=== PATIENT | male | born 1975 | race Caucasian/White ===

== ENCOUNTER 2016-11-22 14:30 | Inpatient (IN) | payer MEDICAID ==
[~2016-11-22] VITALS: Ht 185.4 cm; Wt 93.7 kg
[2016-11-22 14:45] VITALS: BP 100/67
[2016-11-22] MEDS ORDERED: NS IV SCH (15:00)
[2016-11-22] MEDS ORDERED: AMPICILLIN IV SCH (15:00)
[2016-11-22] MEDS ORDERED: AMPICILLIN 2 GM/NS 50 ML IVPB IV SCH ×4 (15:00)
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
[2016-11-22] MEDS ORDERED: hydrOXYzine (VISTARIL) 25 MG CAP PO PRN (16:15)
[2016-11-22] MEDS ORDERED: FLEET ENEMA ADULT 1 EA BTL PR PRN (16:15)
[2016-11-22] MEDS ORDERED: BACLOFEN 10 MG (LIORESAL) TAB PO PRN (16:15)
[2016-11-22] MEDS ORDERED: RT-ALBUTEROL/IPRATROPIUM 3 ML (DUONEB) VIAL INH PRN (16:15)
[2016-11-22] MEDS ORDERED: POLYETHYLENE GLYCOL 17 GM (MIRALAX) PACK PO PRN (16:15)
[2016-11-22] MEDS ORDERED: LIDOCAINE TOPICAL 4% 50 ML BTL TP PRN (16:15)
[2016-11-22] MEDS ORDERED: ONDANSETRON 8 MG (ZOFRAN) ORAL DISSOLVE TAB PO PRN (16:15)
[2016-11-22 18:31] VITALS: BP 119/69
[2016-11-22] MEDS ORDERED: INFLUENZA TRIvalent 2017-2018 0.5 ML/45 MCG SYR IM ONE (19:15)
[2016-11-22] MEDS: NS IV SCH (20:56)
[2016-11-22] MEDS: LEVETIRACETAM 500 MG (KEPPRA) TAB PO SCH (20:56)
[2016-11-22] MEDS: DOCUSATE SODIUM 100 MG (COLACE) CAP PO SCH (20:56)
[2016-11-22] MEDS: AMPICILLIN IV SCH (20:56)
[2016-11-22] MEDS: GABAPENTIN 300 MG (NEURONTIN) CAP PO SCH (20:56)
[2016-11-22] MEDS: BACLOFEN 10 MG (LIORESAL) TAB PO SCH (20:56)
[2016-11-22] MEDS: CATHETER FLUSH 10 ML SYR IV PRN (22:01)
[2016-11-23] VITALS (8 sets, daily range): BP systolic 91–118; BP diastolic 52–72
[2016-11-23] MEDS: CATHETER FLUSH 10 ML SYR IV PRN ×2 (02:20→22:59)
[2016-11-23] MEDS: NS IV SCH ×4 (02:20→21:50)
[2016-11-23] MEDS: AMPICILLIN IV SCH ×4 (02:20→21:50)
[2016-11-23] MEDS: MULTIVIT W/MINERALS TAB (THERAGRAN M) PO SCH (05:53)
[2016-11-23] MEDS: PANTOPRAZOLE 40 MG (PROTONIX) TAB PO SCH (05:53)
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
[2016-11-23] MEDS ORDERED: TAMSULOSIN 0.4 MG (FLOMAX) CAP PO SCH (09:00)
[2016-11-23] MEDS: RIVAROXABAN 20 MG TABLET (XARELTO) PO SCH (09:16)
[2016-11-23] MEDS: BACLOFEN 10 MG (LIORESAL) TAB PO SCH ×3 (09:16→20:33)
[2016-11-23] MEDS: GABAPENTIN 300 MG (NEURONTIN) CAP PO SCH ×3 (09:17→20:33)
[2016-11-23] MEDS: LACTOBACILLUS Acidoph/Bulgar (LACTINEX/FLORANEX) TAB PO SCH (09:17)
[2016-11-23] MEDS: DOCUSATE SODIUM 100 MG (COLACE) CAP PO SCH ×2 (09:17→20:32)
[2016-11-23] MEDS: LEVETIRACETAM 500 MG (KEPPRA) TAB PO SCH ×2 (09:17→20:33)
[2016-11-23] MEDS: LORATADINE (CLARITIN) 10 MG TAB PO PRN (09:17)
[2016-11-23] MEDS: ALFUZOSIN HCL 10 MG TAB (UROXATRAL) PO SCH (09:17)
[2016-11-23] MEDS: OXYBUTYNIN 10 MG PO SCH ×3 (09:20→20:33)
[2016-11-23] MEDS: POLYETHYLENE GLYCOL 17 GM (MIRALAX) PACK PO SCH (09:22)
[2016-11-23] MEDS: HYDROcodone/APAP 5 MG/325 MG (LORTAB) TAB PO PRN ×2 (10:37→15:55)
--- NOTE | 2016-11-23 11:39 | Physical Therapy Daily Note ---
PT Daily Note-Current Subjective Patient in bed pre tx, agrees to PT, will be co-treating with OT for bathing, bed mobility, and transfers. Patient indicates that he has pain in his legs and arms, unspecified amount. Patient has had a large BM in his bed and will need to be cleaned. Appearance Patient in wheelchair post tx with OT and family ready to come in. Mental Status Patient Orientation: Person, Situation Transfers Functional [place] Measure 0=Not Assessed/NA 4=Minimal Assistance 1=Total Assistance 5=Supervision or Setup 2=Maximal Assistance 6=Modified [place] 3=Moderate Assistance 7=Complete IndependenceIRFPAI Quality Coding Scale 6 Independent with activity with or without an assistive device 5 Patient requires set up or clean up by helper. Patient completes activity by themselves 4 Supervision or touching assist (CGA). [place] provide cues , steadying assist 3 The helper provides less than half the effort to complete the activity 2 The helper provides more than half the effort to complete the activity 1 Dependent. The helper does all the effort to complete an activity 7 Patient refused to complete or attempt activity 9 The patient did not perform the activity before the current illness or injury 88 Not attempted due to Medical conditions or safety concerns Transfers (B, C, W/C) (FIM): 1 Scootin Rollin Supine to/from Sit: 1 Bed to/from Chair: 1 Patient had to roll many times from side to side for cleaning BM, getting clean sheets, getting sling under him, bathing, and dressing. He is dependent with this for the most part, he can assist a little with rolling to the left side but not even enough to be considered max assist. Patient is transferred to the shower chair, bed, and wheelchair using a zoey. Treatments Patient was cleaned for BM at the beginning of treatment, transferred with zoey to a shower chair and put in shower. In the shower, before it was actually started, patient became anxious and extended his back and head, causing his bottom to side off the chair and he was immediately taken back to his bed and put in bed before he had a chance to slip out of the chair. He was then bathed in bed, partially dressed and transferred to the wheelchair and dressed the rest of the way. Patient had to roll many times to accomplish all this, cues for helping with rolling using right arm. Assessment Current Status: Poor Progress Patient is very anxious, repeats over and over that it hurts. Does not really participate. Besides the ankle and knee contractures, he seems to maybe even have contractures of the muscles in his left trunk and back, rotating his hips to the left, cannot sit with knees strait up without being positioned there with a lot of effort. PT Short Term Goals Short Term Goals Time Frame: Nov 30, 2016 Transfers (B,C,W/C) (FIM): 2 PT Mcc Goals Mcc Goals PT Mcc Goals Time Frame: Dec 14, 2016 Transfers (B,C,W/C) (FIM): 2 Sit to Lying (QC): 2 Lying-Sitting on Side/Bed(QC): 2 Rollin Roll Left to Right (QC): 2 Chair/Dal-xx-Ocisi Xfer(QC): 2 PT Plan Problem List Problem List: Activity Tolerance, Functional Strength, Safety, Balance, Transfer, Bed Mobility, ROM Treatment/Plan Treatment Plan: Continue Plan of Care Treatment Plan: Bed Mobility, Concurrent Therapy, Education, Functional Activity Juanpablo, Functional Strength, Group Therapy, Safety, Therapeutic Exercise , Transfers Treatment Duration: Dec 14, 2016 Frequency: At least 5 of 7 days/Wk (IRF) Estimated Hrs Per Day: 1.5 hours per day Patient and/or Family Agrees t: Yes Safety Risks/Education Patient Education: Transfer Techniques, Correct Positioning, W/C Management, Instructions to Caregiver, Disease Process, Safety Issues Teaching Recipient: Patient Teaching Methods: Demonstration, Discussion Response to Teaching: Reinforcement Needed Time/GCodes Time In: 1030 Time Out: 1100 Total Billed Treatment Time: 60 Total Billed Treatment 1 visit FA 60' Co-treated for the whole 60 min. OT worked on bathing, dressing, transfers, PT worked on transfers and bed mobility. FREDDY TRIMBLE PT Nov 23, 2016 11:39
[2016-11-23] MEDS ORDERED: BISA10SU58 RC ×2 (13:01→13:24)
[2016-11-23] MEDS ORDERED: AMPI2VIA IV (13:01)
[2016-11-23] MEDS ORDERED: NA P133E22 RC (13:01)
[2016-11-23] MEDS ORDERED: [UNRECOGNIZED DRUG - CODE] ID (13:01)
[2016-11-23] MEDS ORDERED: ACET325T38 PO (13:24)
[2016-11-23] MEDS ORDERED: PANT40TA3 PO (13:24)
[2016-11-23] MEDS ORDERED: LEVE500T99 PO (13:24)
[2016-11-23] MEDS ORDERED: GABA-488 PO (13:24)
[2016-11-23] MEDS ORDERED: ONDA8TAB6 PO (13:24)
[2016-11-23] MEDS ORDERED: MO133EN RC (13:24)
[2016-11-23] MEDS ORDERED: TAMS0.4C98 PO (13:24)
[2016-11-23] MEDS ORDERED: DOCU-143 PO (13:24)
[2016-11-23] MEDS ORDERED: RIVA20TA PO (13:24)
[2016-11-23] MEDS ORDERED: ALB0.5V NEB (13:24)
[2016-11-23] MEDS ORDERED: NALO0.4D3 SC (13:24)
[2016-11-23] MEDS ORDERED: OXYB10TA6 PO (13:24)
[2016-11-23] MEDS ORDERED: LACT1CAP57 PO (13:24)
[2016-11-23] MEDS ORDERED: CITA40TA11 PO (13:24)
[2016-11-23] MEDS ORDERED: HYDR-757 PO (13:24)
[2016-11-23] MEDS ORDERED: BACL10TA PO ×2 (13:24)
[2016-11-23] MEDS ORDERED: CETI10TA20 PO (13:24)
[2016-11-23] MEDS ORDERED: DIPH25CA79 PO (13:24)
[2016-11-23] MEDS ORDERED: METO-270 PO (13:24)
[2016-11-23] MEDS ORDERED: HYDR50TA76 PO (13:24)
[2016-11-23] MEDS ORDERED: POLY17PO6 PEG (13:24)
[2016-11-23] MEDS ORDERED: KETO120S5 TP (13:24)
[2016-11-23] MEDS ORDERED: KETO10TA PO (13:24)
[2016-11-23] MEDS ORDERED: MULT-1067 PO (13:24)
[2016-11-23] MEDS ORDERED: MAGN400O7 PO (13:24)
[2016-11-23] MEDS ORDERED: LIDO113G4 TP (13:24)
[2016-11-23] MEDS: ONDANSETRON 4 MG (ZOFRAN) ORAL DISSOLVE TAB PO PRN (13:34)
--- NOTE | 2016-11-23 13:44 | Physical Therapy Daily Note ---
PT Daily Note-Current Subjective Pt is sitting in wheelchair prior to tx. Pt reports his head hurts. Pt is to be co-treated with occupational therapy. Pt is lying in bed with nurse call, phone in reach, all needs met post tx, family in room. Mental Status Patient Orientation: Person Attachments: Suprapubic Catheter Transfers Functional [place] Measure 0=Not Assessed/NA 4=Minimal Assistance 1=Total Assistance 5=Supervision or Setup 2=Maximal Assistance 6=Modified [place] 3=Moderate Assistance 7=Complete IndependenceIRFPAI Quality Coding Scale 6 Independent with activity with or without an assistive device 5 Patient requires set up or clean up by helper. Patient completes activity by themselves 4 Supervision or touching assist (CGA). [place] provide cues , steadying assist 3 The helper provides less than half the effort to complete the activity 2 The helper provides more than half the effort to complete the activity 1 Dependent. The helper does all the effort to complete an activity 7 Patient refused to complete or attempt activity 9 The patient did not perform the activity before the current illness or injury 88 Not attempted due to Medical conditions or safety concerns Transfers (B, C, W/C) (FIM): 1 Scootin Rollin Bed to/from Chair: 1 Pt is transferred with Reva lift from wheelchair into bed. Patient completes rolling with verbal cues for hand placement, is able to grab railing on side of bed but is not able to help enough to be max assist yet. Weight Bearing Right Lower Extremity: Right Non Weight Bearing Treatments OT and PT attempts to sit patient at edge of mat. Pt was transferred with Reva lift into bed. PT and OT complete positioning in bed with pillows under knees and left arm. Assessment Current Status: Poor Progress Pt becomes sweaty during tx and begins increasingly repeating himself. Pt vitals were assessed (O2 90%, HR 55, BP 78/55). Pt is transferred to bed. Patient becomes nauseous and dry heaves for several minutes. Pt blood pressure is reassessed and is 98/72. PT Short Term Goals Short Term Goals Time Frame: Nov 30, 2016 Transfers (B,C,W/C) (FIM): 2 PT Custodial Goals Custodial Goals PT Apprentice Carpenter Goals Time Frame: Dec 14, 2016 Transfers (B,C,W/C) (FIM): 2 Sit to Lying (QC): 2 Lying-Sitting on Side/Bed(QC): 2 Rollin Roll Left to Right (QC): 2 Chair/Cze-ne-Libll Xfer(QC): 2 PT Plan Problem List Problem List: Activity Tolerance, Functional Strength, Safety, Balance, Gait, Transfer, Bed Mobility, ROM Treatment/Plan Treatment Plan: Continue Plan of Care Treatment Plan: Bed Mobility, Concurrent Therapy, Education, Functional Activity Juanpablo, Functional Strength, Group Therapy, Safety, Therapeutic Exercise , Transfers Treatment Duration: Dec 14, 2016 Frequency: At least 5 of 7 days/Wk (IRF) Estimated Hrs Per Day: 1.5 hours per day Patient and/or Family Agrees t: Yes Safety Risks/Education Patient Education: Transfer Techniques, Reviewed Precautions, Correct Positioning, W/C Management, Safety Issues Teaching Recipient: Patient Teaching Methods: Demonstration, Discussion Response to Teaching: Reinforcement Needed Time/GCodes Time In: 1300 Time Out: 1340 Total Billed Treatment Time: 40 Total Billed Treatment 1 visit 40 FREDDY FONSECA PT Nov 23, 2016 13:44
--- NOTE | 2016-11-23 14:17 | Speech Therapy Daily Note ---
Speech Daily Progress Note Subjective Date Seen by Provider: Nov 23, 2016 Time Seen by Provider: 09:30 Objective Prior Level of Functioning: The patient completed a bachelor's degree in criminal justice prior to the accident. The patient does not utilize glasses or contact lenses and does not require hearing aids. At this time, the patient is unable to write, however, reports he was previously right handed. Orientation: The patient is oriented to name, date of , age, year, and month. The patient requires mild clinician verbal cueing for the accurate day of week. The patient is able to state the rationale for his rehabilitation stay. Auditory Attention/Working Memory: The patient is able to recall five digits forward and three digits in reverse. Automatics: The patient is able to state the days of the week and count backwards from 10 to zero. Repetition: The patient is able to repeat single words and short phrases. Auditory Memory: The patient was able to recall questions pertaining to a recently read paragraph with 100% accuracy. Sequencing: The patient displayed moderate difficulty sequencing ADL tasks such as preparing soup, placing gas in a car or motorcycle, or washing his hair. Divergent Problem Solving: The patient was unable to provide three items that would belong in a specific category. Generative Naming: The patient was able to name seven animals in a span of one minute with six perseverated answered provided ([id number]). General Reasoning: The patient was able to state specific reasons for windows being made of glass and two reasons why someone may be late to work. Figurative Language: The patient was unable to explain the meaning behind common figurative phrases. Math Story Problems/Time Concepts: The patient displayed difficulty with time concepts and math story problems, demonstrating less than 50% accuracy. Command Following: The patient is able to follow two-part, complex commands. Assessment Assessment Current Status: Good Progress Treatment Plan Continue Plan of Care Communication Comprehension: 3 Expression: 2 Social Cognition Social Interaction: 3 Problem Solvin Memory: 3 Speech Short Term Goals Short Term Goals Short Term Goals 1. The patient will complete a full cognitive evaluation with mild clinician verbal prompting. MET (11/23/16) 2. The patient will display 80% accuracy with structured word-finding tasks with mild clinician verbal prompting. 3. The patient will demonstrate 80% accuracy with sequencing of ADL tasks with minimal clinician verbal prompting. 4. The patient will complete structured deductive reasoning tasks with 80% accuracy and mild clinician cueing. 5. The patient will display 80% accuracy with oral motor exercises with mild clinician direct modeling. Time Frame-STG: Three Weeks Speech Group Home Goals Data Miner Goals 1. The patient will improve cognitive linguistic skills for increased function and safety with ADL's in the least restrictive setting. Time Frame: Four Weeks Speech-Plan Treatment Plan Speech Therapy Treatment Plan: Continue Plan of Care Continue skilled speech pathology to target improved executive functioning and reasoning skills. Frequency: Modified Program (IRF) (Four to Five Treatment Sessions Per Week) Estimated Hrs Per Day: .5 hour per day Rehab Potential: Poor Safety Risks/Education Teaching Recipient: Patient Teaching Methods: Discussion Response to Teaching: Reinforcement Needed Education Topics Provided: Results, Recommendations, Plan of Care, Goals Time Speech Therapy Time In: 09:30 Speech Therapy Time Out: 10:30 Total Billed Time: 60 Billed Treatment Time 1ELMO ELIZABETH ST Nov 23, 2016 14:17
--- NOTE | 2016-11-23 14:54 | Occupational Ther Daily Note ---
OT Current Status-Daily Note Subjective Pt. greets OT with "hi" Appearance Pt. in bed. Agrees to shower. Mental Status/Objective Functional [place] Measure 0=Not Assessed/NA 4=Minimal Assistance 1=Total Assistance 5=Supervision or Setup 2=Maximal Assistance 6=Modified [place] 3=Moderate Assistance 7=Complete [place] Please see comments below. ADL-Treatment Functional [place] Measure 0=Not Assessed/NA 4=Minimal Assistance 1=Total Assistance 5=Supervision or Setup 2=Maximal Assistance 6=Modified [place] 3=Moderate Assistance 7=Complete IndependenceIRFPAI Quality Coding Scale 6 Independent with activity with or without an assistive device 5 Patient requires set up or clean up by helper. Patient completes activity by themselves 4 Supervision or touching assist (CGA). [place] provide cues , steadying assist 3 The helper provides less than half the effort to complete the activity 2 The helper provides more than half the effort to complete the activity 1 Dependent. The helper does all the effort to complete an activity 7 Patient refused to complete or attempt activity 9 The patient did not perform the activity before the current illness or injury 88 Not attempted due to Medical conditions or safety concerns Bathing (FIM): 2 (Please see comments below.) Shower/Bathe Self (QC): 2 Upper Body (FIM): 1 Upper Body Dressing (QC): 1 Lower Body Dressing (FIM): 1 (Supine in bed.) Lower Body Dressing (QC): 1 On/Off Footwear (QC): 1 (Socks only due to sever contracture and wound on right foot.) Toileting (FIM): 1 (Pt. has catheter for urine. Incontinent of bowel.) Toileting Hygiene (QC): 1 Transfers (B, C, W/C) (FIM): 1 (Reva lift) Shower Transfer(FIM): 1 (See note below.) Other Treatment Pt. incontinent of bowel this morning. OT/PT co-treat due to level of skilled care required for transfer training. OT facilitate ADL treatment and UE ROM. PT facilitated transfers and LE ROM. Pt. dependent in bed to roll side to side. Was able to reach with right UE for bed rail, but unable to reach with left UE. Pt. dependent to cleanse carli area. After carli cleanse, pt. was transferred to shower chair for shower. Pt. safe on chair and positioned well. Went into shower and pt. began to go into extensor tone. Became unsafe on chair and OT/PT had to take pt. back to bed and transfer back to bed with slide technique. Pt. given thorough spongebath in bed. OT facilitated pt. washing as much of himself as possible. Pt. given washcloth and asked to wash face, chest. Pt. washed part of face and then left cloth on face and said, "i'm tired." Refused to attempt more. OT and PT encouraged pt. throughout ADL training/tasks to do as much for self, including to be a participant in transfers. Donned shorts, shirt, depend. Transferred to wheelchair via reva lift. Pt. is positioned. Note that pt. does have significant contractures in bilateral knees, elbows, wrists, fingers. All needs met up in chair. Education OT Patient Education: Correct positioning, Modified ADL techniques, Progress toward Goal/Update tx plan, Purpose of tx/functional activities, Reviewed precautions, Rehab process, Transfer techniques Teaching Recipient: Patient, Family Teaching Methods: Demonstration, Discussion Response to Teaching: Verbalize Understanding, Return Demonstration OT Short Term Goals Short Term Goals Time Frame: Dec 06, 2016 Eating(FIM): 3 Grooming(FIM): 3 Bathing(FIM): 2 Upper Body Dressing(FIM): 2 Lower Body Dressing(FIM): 2 Toileting(FIM): 2 Transfers (B,C,W/C) (FIM): 2 Toilet/Commode Transfer(FIM): 2 Additional Short Term Goals: 1-Demonstrate ADL Tasks, 2-Verbalize Understanding , 3-ImproveStrength/Juanpablo 1=Demonstrate adherence to instructed precautions during ADL tasks. 2=Patient will verbalize/demonstrate understanding of assistive devices/ modifications for ADL. 3=Patient will improve strength/tolerance for activity to enable patient to perform ADL's. OT Transition Teacher Goals Transition Teacher Goals Time Frame: Dec 27, 2016 Eating (FIM): 4 Eating (QC): 4 Groomin Oral Hygiene (QC): 4 Bathing(FIM): 3 Shower/Bathe Self (QC): 3 Upper Body Dressing(FIM): 3 Upper Body Dressing (QC): 3 Lower Body Dressing(FIM): 3 Lower Body Dressing (QC): 3 On/Off Footwear (QC): 2 Toileting(FIM): 2 Toileting Hygiene (QC): 2 Transfers (B,C,W/C) (FIM): 2 Toilet/Commode Transfer(FIM): 2 Toilet/Commode Transfer (QC): 2 Shower Transfer(FIM): 2 Additional Goals: 1-Demonstrate ADL Tasks, 2-Verbalize Understanding, 3- ImproveStrength/Juanpablo 1=Demonstrate adherence to instructed precautions during ADL tasks. 2=Patient will verbalize/demonstrate understanding of assistive devices/ modifications for ADL. 3=Patient will improve strength/tolerance for activity to enable patient to perform ADL's. OT Education/Plan Problem List/Assessment Assessment: Decreased Activ Tolerance, Decreased Safety Aware, Decreased UE Strength, Dependent Transfers, Impaired Bed Mobility, Impaired Cognition, Impaired Coordination, Impaired Funct Balance, Impaired I ADL's, Impaired Self- Care Skills, Restricted Funct UE ROM Discharge Recommendations Plan/Recommendations: Continue POC Therapy D/C Recommendations: 24 hr Supervision, Home w/ Family Support Treatment Plan/Plan of Care Treatment,Training & Education: Yes Patient would benefit from OT for education, treatment and training to promote independence in ADL's, mobility, safety and/or upper extremity function for ADL' s. Plan of Care: ADL Retraining, Caregiver Training, Cognitive Retraining, Functional Mobility, Group Exercise/Act as Ind, UE Funct Exercise/Act Treatment Duration: Dec 27, 2016 Frequency: At least 5 of 7 days/Wk (IRF) Estimated Hrs Per Day: 1.5 hours per day Agreement: Yes Rehab Potential: Poor Time/GCodes Start Time: 10:30 Stop Time: 11:30 Total Time Billed (hr/min): 60 Billed Treatment Time 1, ADL x 4 JACOB PIERRE OT Nov 23, 2016 14:54
[2016-11-23] MEDS ORDERED: NS IV 1000 ML 1,000 ML ONE (16:39)
[2016-11-23] MEDS ORDERED: NS IV 1000 ML 1,000 ML IV ONE (16:45)
--- NOTE | 2016-11-23 16:47 | Occupational Ther Daily Note ---
OT Current Status-Daily Note Subjective [place] through treatment pt begins to state "my head hurts" over and over." Nursing notified and BP taken. Please see note. Appearance Pt. up in wheelchair. Agrees to treatment at beginning of treatment. Mental Status/Objective Patient Orientation: Confused Functional [place] Measure 0=Not Assessed/NA 4=Minimal Assistance 1=Total Assistance 5=Supervision or Setup 2=Maximal Assistance 6=Modified [place] 3=Moderate Assistance 7=Complete [place] ADL-Treatment Functional [place] Measure 0=Not Assessed/NA 4=Minimal Assistance 1=Total Assistance 5=Supervision or Setup 2=Maximal Assistance 6=Modified [place] 3=Moderate Assistance 7=Complete IndependenceIRFPAI Quality Coding Scale 6 Independent with activity with or without an assistive device 5 Patient requires set up or clean up by helper. Patient completes activity by themselves 4 Supervision or touching assist (CGA). [place] provide cues , steadying assist 3 The helper provides less than half the effort to complete the activity 2 The helper provides more than half the effort to complete the activity 1 Dependent. The helper does all the effort to complete an activity 7 Patient refused to complete or attempt activity 9 The patient did not perform the activity before the current illness or injury 88 Not attempted due to Medical conditions or safety concerns Transfers (B, C, W/C) (FIM): 1 (Dependent with reva lift.) Other Treatment Pt. taken to therapy gym in wheelchair. Pt. agreeable to attempt slide board transfer to mat. OT/PT co-treat to facilitate this transfer, as skill was required from both parties, including PT for leg placement and transfer, and OT for UE placement and balance/core strength when on mat. Placed slide board under pt. Pt. became sweaty, and started to repeat self. Stated that his head hurt. Became pale. OT reclined chair again. Nursing took BP. 78/55. Took to room. Reva to bed. BP taken again and 92/62. Pt. positioned in bed and made comfortable. Pt. states that he feels ill. Began to dry heave. Nursing provided nausea medication. All needs met in room. Education OT Patient Education: Correct positioning, Modified ADL techniques, Progress toward Goal/Update tx plan, Purpose of tx/functional activities, Reviewed precautions, Rehab process, Transfer techniques Teaching Recipient: Patient Teaching Methods: Demonstration Response to Teaching: Verbalize Understanding, Return Demonstration OT Short Term Goals Short Term Goals Time Frame: Dec 06, 2016 Eating(FIM): 3 Grooming(FIM): 3 Bathing(FIM): 2 Upper Body Dressing(FIM): 2 Lower Body Dressing(FIM): 2 Toileting(FIM): 2 Transfers (B,C,W/C) (FIM): 2 Toilet/Commode Transfer(FIM): 2 Additional Short Term Goals: 1-Demonstrate ADL Tasks, 2-Verbalize Understanding , 3-ImproveStrength/Juanpablo 1=Demonstrate adherence to instructed precautions during ADL tasks. 2=Patient will verbalize/demonstrate understanding of assistive devices/ modifications for ADL. 3=Patient will improve strength/tolerance for activity to enable patient to perform ADL's. OT Fpc Goals Metal Alloy Scientist Goals Time Frame: Dec 27, 2016 Eating (FIM): 4 Eating (QC): 4 Groomin Oral Hygiene (QC): 4 Bathing(FIM): 3 Shower/Bathe Self (QC): 3 Upper Body Dressing(FIM): 3 Upper Body Dressing (QC): 3 Lower Body Dressing(FIM): 3 Lower Body Dressing (QC): 3 On/Off Footwear (QC): 2 Toileting(FIM): 2 Toileting Hygiene (QC): 2 Transfers (B,C,W/C) (FIM): 2 Toilet/Commode Transfer(FIM): 2 Toilet/Commode Transfer (QC): 2 Shower Transfer(FIM): 2 Additional Goals: 1-Demonstrate ADL Tasks, 2-Verbalize Understanding, 3- ImproveStrength/Juanpablo 1=Demonstrate adherence to instructed precautions during ADL tasks. 2=Patient will verbalize/demonstrate understanding of assistive devices/ modifications for ADL. 3=Patient will improve strength/tolerance for activity to enable patient to perform ADL's. OT Education/Plan Problem List/Assessment Assessment: Decreased Activ Tolerance, Decreased Safety Aware, Decreased UE Strength, Dependent Transfers, Impaired Bed Mobility, Impaired Cognition, Impaired Coordination, Impaired Funct Balance, Impaired I ADL's, Impaired Self- Care Skills, Restricted Funct UE ROM Discharge Recommendations Plan/Recommendations: Continue POC Therapy D/C Recommendations: 24 hr Supervision, Home w/ Family Support Treatment Plan/Plan of Care Treatment,Training & Education: Yes Patient would benefit from OT for education, treatment and training to promote independence in ADL's, mobility, safety and/or upper extremity function for ADL' s. Plan of Care: ADL Retraining, Caregiver Training, Cognitive Retraining, Functional Mobility, Group Exercise/Act as Ind, UE Funct Exercise/Act Treatment Duration: Dec 27, 2016 Frequency: At least 5 of 7 days/Wk (IRF) Estimated Hrs Per Day: 1.5 hours per day Agreement: Yes Rehab Potential: Poor Time/GCodes Start Time: 13:00 Stop Time: 13:45 Total Time Billed (hr/min): 45 Billed Treatment Time 1, FA x 3 JACOB PIERRE OT Nov 23, 2016 16:47
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
--- NOTE | 2016-11-23 20:04 | PM&R Post Admission Assessment ---
Post Admission Physician Asses The preadmission screen agrees with the post admission assessment that the patient should be a good candidate for inpatient rehabilitation. The patient will have a comprehensive program of inpatient rehabilitation with a goal of maximizing level of functional independence prior to discharge home with his mother. The patient will have PT/OT ninety minutes per day, each discipline, five days a week for 2 weeks for transfer training, w/c mobility, strengthening, conditioning, balance, ADLs, any patient/family/caregiver training as necessary. Speech therapy to do cognitive assessment and treat as indicated. Rehabilitation nursing to assist with bowel, bladder, skin, wound care, medication administration, pain management. [employer] Hcm Developer to assist with discharge planning, community reentry. SCD's for DVT prophylaxis. He appears to be well motivated to participate in three hours of therapy a day. He should be able to tolerate three hours of therapy a day from a medical standpoint once hypotension addressed with f/u labs and hydration and cardiac eval with cardiology. He should benefit from the three hours of therapy a day. He has a reasonable discharge plan, reasonable discharge rehabilitation goals and a supportive family. He has various comorbidities that need to be closely monitored with medications and treatments adjusted on a daily basis as needed. These include: hypotension contractures TBI Barriers to discharge for this patient who had been independent prior to the original injury are for him to be at the maximal level of function for ADLs and mobility skills at the w/c level prior to discharge home with his mother, so as to lessen the burden of the caregivers. Risks for this patient include: 1. Fall 2. Fracture 3. DVT 4. Pulmonary embolism 5. Wound infection 6. Skin breakdown 7. Worsening contractures 8. Poorly controlled pain 9. Urinary retention 10. UTI 11. Respiratory infection 12. Aspiration 13. Worsening hypotension Estimated Length of Stay: 14 ]days Prognosis: Rehab prognosis appears fair for goal of discharge home with his mother at the highest level of function for ADLs and mobility skills prior to discharge to home with his mother. BEAU MA MD Nov 23, 2016 20:04
[2016-11-24] MEDS: CATHETER FLUSH 10 ML SYR IV PRN (03:10)
[2016-11-24] MEDS: AMPICILLIN IV SCH ×4 (03:10→21:35)
[2016-11-24] MEDS: NS IV SCH ×4 (03:10→21:35)
[2016-11-24 05:02] VITALS: BP 113/66
[2016-11-24 05:21] LABS: MEAN PLATELET VOLUME 10.2 FL (7.4-10.4); RED BLOOD COUNT 3.86 10^6/uL (4.35-5.85); RED CELL DISTRIBUTION WIDTH 12.6 % (10.0-14.5); WHITE BLOOD COUNT 5.3 10^3/uL (4.3-11.0)
[2016-11-24 06:07] LABS: ALANINE AMINOTRANSFERASE 13 U/L (0-55); ALBUMIN 3.4 GM/DL (3.2-4.5); ANION GAP 11 MMOL/L (5-14); ASPARTATE AMINO TRANSFERASE 12 U/L (5-34); BILIRUBIN,TOTAL 0.3 MG/DL (0.1-1.0); BLOOD UREA NITROGEN 7 MG/DL (7-18); BUN/CREATININE RATIO 10; CALCIUM 8.3 MG/DL (8.5-10.1); CARBON DIOXIDE 22 MMOL/L (21-32); CHLORIDE 109 MMOL/L (98-107); GFR ESTIMATED > 60; GLUCOSE 86 MG/DL (70-105); POTASSIUM 3.6 MMOL/L (3.6-5.0); SODIUM 142 MMOL/L (135-145); TOTAL PROTEIN 6.2 GM/DL (6.4-8.2)
[2016-11-24] MEDS: MULTIVIT W/MINERALS TAB (THERAGRAN M) PO SCH (06:09)
[2016-11-24] MEDS: PANTOPRAZOLE 40 MG (PROTONIX) TAB PO SCH (06:09)
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
[2016-11-24] MEDS: DOCUSATE SODIUM 100 MG (COLACE) CAP PO SCH ×2 (08:35→21:36)
[2016-11-24] MEDS: OXYBUTYNIN 10 MG PO SCH ×3 (08:35→21:37)
[2016-11-24] MEDS: LACTOBACILLUS Acidoph/Bulgar (LACTINEX/FLORANEX) TAB PO SCH (08:35)
[2016-11-24] MEDS: BACLOFEN 10 MG (LIORESAL) TAB PO SCH ×3 (08:35→21:36)
[2016-11-24] MEDS: POLYETHYLENE GLYCOL 17 GM (MIRALAX) PACK PO SCH (08:35)
[2016-11-24] MEDS: GABAPENTIN 300 MG (NEURONTIN) CAP PO SCH ×3 (08:35→21:35)
[2016-11-24] MEDS: LEVETIRACETAM 500 MG (KEPPRA) TAB PO SCH ×2 (08:35→21:36)
[2016-11-24] MEDS: ALFUZOSIN HCL 10 MG TAB (UROXATRAL) PO SCH (08:35)
[2016-11-24] MEDS: RIVAROXABAN 20 MG TABLET (XARELTO) PO SCH (08:36)
[2016-11-24] MEDS: HYDROcodone/APAP 5 MG/325 MG (LORTAB) TAB PO PRN ×2 (08:49→21:36)
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
--- NOTE | 2016-11-24 10:58 | Physical Therapy Daily Note ---
PT Daily Note-Current Subjective Pt is lying in bed prior to tx. Pt repeats "my legs hurt." Pt is to be co- treated with occupational therapy. Pt is sitting in wheelchair post tx (OT will continue treatment in gym), all needs met. Mental Status Patient Orientation: Person Attachments: Suprapubic Catheter telemetry Transfers Functional [place] Measure 0=Not Assessed/NA 4=Minimal Assistance 1=Total Assistance 5=Supervision or Setup 2=Maximal Assistance 6=Modified [place] 3=Moderate Assistance 7=Complete IndependenceIRFPAI Quality Coding Scale 6 Independent with activity with or without an assistive device 5 Patient requires set up or clean up by helper. Patient completes activity by themselves 4 Supervision or touching assist (CGA). [place] provide cues , steadying assist 3 The helper provides less than half the effort to complete the activity 2 The helper provides more than half the effort to complete the activity 1 Dependent. The helper does all the effort to complete an activity 7 Patient refused to complete or attempt activity 9 The patient did not perform the activity before the current illness or injury 88 Not attempted due to Medical conditions or safety concerns Transfers (B, C, W/C) (FIM): 1 Scootin Rollin Supine to/from Sit: 1 Bed to/from Chair: 1 Pt completes bed mobility and transfers with total assist. Pt is transferred using Reva lift. Weight Bearing Right Lower Extremity: Right Non Weight Bearing Wheelchair Training Does the Pt Use a Wheelchair?: Yes Wheelchair (FIM): 1 Treatments Pt tolerates sitting at edge of mat for 20 minutes. Pt requires max assist with sitting, is able to sit up with min assist support behind back and min assist in front of knees so he does not extend and lay down. PT works on posture and sitting balance. OT works on UE ROM and leaning from side to side using arms as support, trunk is contractured and he tends to lean towards left side. Assessment Current Status: Poor Progress Mobility is unchanged. Patient is poorly motivated, repeats throughout treatment he wants to go to bed and lie down. Patient becomes nauseous during treatment, resolves after a few minutes of rest. PT Short Term Goals Short Term Goals Time Frame: Nov 30, 2016 Transfers (B,C,W/C) (FIM): 2 PT Chiropractic Care Goals Chiropractic Care Goals PT Chiropractic Care Goals Time Frame: Dec 14, 2016 Transfers (B,C,W/C) (FIM): 2 Sit to Lying (QC): 2 Lying-Sitting on Side/Bed(QC): 2 Rollin Roll Left to Right (QC): 2 Chair/Oxg-ld-Ifyfs Xfer(QC): 2 PT Plan Problem List Problem List: Activity Tolerance, Functional Strength, Safety, Balance, Gait, Transfer, Bed Mobility, ROM Treatment/Plan Treatment Plan: Continue Plan of Care Treatment Plan: Bed Mobility, Concurrent Therapy, Education, Functional Activity Juanp[place], Functional Strength, Group Therapy, Safety, Therapeutic Exercise , Transfers Treatment Duration: Dec 14, 2016 Frequency: At least 5 of 7 days/Wk (IRF) Estimated Hrs Per Day: 1.5 hours per day Patient and/or Family Agrees t: Yes Safety Risks/Education Patient Education: Transfer Techniques, Reviewed Precautions, Correct Positioning, W/C Management, Safety Issues Teaching Recipient: Patient Teaching Methods: Demonstration, Discussion Response to Teaching: Reinforcement Needed Time/GCodes Time In: 1000 Time Out: 1100 Total Billed Treatment Time: 60 Total Billed Treatment 1 visit FA 60 co-treated with OT 60 min PT works on posture and sitting balance. OT works on UE ROM and leaning from side to side using arms as support FREDDY TRIMBLE PT Nov 24, 2016 10:58
--- NOTE | 2016-11-24 13:02 | Occupational Ther Daily Note ---
OT Current Status-Daily Note Subjective Pt alert, lying in bed. Pt repeated that he wanted to call his mom. OT/PT attempted to redirect pt and have pt focus on therapy. Pt was redirected then pt repeated 'I want to lay down, put me back into bed." OT/PT attempted to redirect again. OT/PT co-treated to work on pt's activity tolerance, functional mobility, transfers and sitting balance. Mental Status/Objective Patient Orientation: Person, Unable to Assess Functional [place] Measure 0=Not Assessed/NA 4=Minimal Assistance 1=Total Assistance 5=Supervision or Setup 2=Maximal Assistance 6=Modified [place] 3=Moderate Assistance 7=Complete [place] Attachments: Flood Catheter, IV ADL-Treatment Functional [place] Measure 0=Not Assessed/NA 4=Minimal Assistance 1=Total Assistance 5=Supervision or Setup 2=Maximal Assistance 6=Modified [place] 3=Moderate Assistance 7=Complete IndependenceIRFPAI Quality Coding Scale 6 Independent with activity with or without an assistive device 5 Patient requires set up or clean up by helper. Patient completes activity by themselves 4 Supervision or touching assist (CGA). [place] provide cues , steadying assist 3 The helper provides less than half the effort to complete the activity 2 The helper provides more than half the effort to complete the activity 1 Dependent. The helper does all the effort to complete an activity 7 Patient refused to complete or attempt activity 9 The patient did not perform the activity before the current illness or injury 88 Not attempted due to Medical conditions or safety concerns Other Treatment Dependent with donning pants, completed in supine. Dependent with donning shirt , completed sitting on edge of therapy mat table. Pt transferred from bed to w/ c then to therapy mat then back to w/c using zoey lift. PT worked on pt's sitting balance and transfers. Pt has tendency for extension with sitting without total support. At initial sitting edge of mat table PT required increased assistance to inhibit lower body extension. Min A for upper body positioning in sitting and as pt began to feel comfortable decrease assistance from PT. Pt has increased contractures with upper extremities and trunk. Wt bearing through elbows while leaning side to side. R UE was able to extend to mat then pt only able to reach knuckles to mat, decreased extension in wrist due to contractures. Pt became nauseous so was laid on side until nausea passed then transferred back to w/c with zoey lift. Nrsg notified that pt was nauseous. Pt sitting upright in w/c to work on motor free visual tasks. Pt was able to discriminate between colors then match numbers or colors for a visual memory task. Pt then was taken back to room and pt held onto menu to choose food for lunch. Pt's mother came in and requested for OT to look at finding computer activities to complete and how to position computer. After therapy, pt sitting in recliner with mother present in room. Call light in reach. All needs met in room. OT Short Term Goals Short Term Goals Time Frame: Dec 06, 2016 Eating(FIM): 3 Grooming(FIM): 3 Bathing(FIM): 2 Upper Body Dressing(FIM): 2 Lower Body Dressing(FIM): 2 Toileting(FIM): 2 Transfers (B,C,W/C) (FIM): 2 Toilet/Commode Transfer(FIM): 2 Additional Short Term Goals: 1-Demonstrate ADL Tasks, 2-Verbalize Understanding , 3-ImproveStrength/Juanpablo 1=Demonstrate adherence to instructed precautions during ADL tasks. 2=Patient will verbalize/demonstrate understanding of assistive devices/ modifications for ADL. 3=Patient will improve strength/tolerance for activity to enable patient to perform ADL's. OT Prison Goals Prison Goals Time Frame: Dec 27, 2016 Eating (FIM): 4 Eating (QC): 4 Groomin Oral Hygiene (QC): 4 Bathing(FIM): 3 Shower/Bathe Self (QC): 3 Upper Body Dressing(FIM): 3 Upper Body Dressing (QC): 3 Lower Body Dressing(FIM): 3 Lower Body Dressing (QC): 3 On/Off Footwear (QC): 2 Toileting(FIM): 2 Toileting Hygiene (QC): 2 Transfers (B,C,W/C) (FIM): 2 Toilet/Commode Transfer(FIM): 2 Toilet/Commode Transfer (QC): 2 Shower Transfer(FIM): 2 Additional Goals: 1-Demonstrate ADL Tasks, 2-Verbalize Understanding, 3- ImproveStrength/Juanpablo 1=Demonstrate adherence to instructed precautions during ADL tasks. 2=Patient will verbalize/demonstrate understanding of assistive devices/ modifications for ADL. 3=Patient will improve strength/tolerance for activity to enable patient to perform ADL's. OT Education/Plan Discharge Recommendations Plan/Recommendations: Continue POC Treatment Plan/Plan of Care Patient would benefit from OT for education, treatment and training to promote independence in ADL's, mobility, safety and/or upper extremity function for ADL' s. Plan of Care: ADL Retraining, Caregiver Training, Cognitive Retraining, Functional Mobility, Group Exercise/Act as Ind, UE Funct Exercise/Act Treatment Duration: Dec 27, 2016 Frequency: At least 5 of 7 days/Wk (IRF) Estimated Hrs Per Day: 1.5 hours per day Agreement: Yes Rehab Potential: Poor Time/GCodes Start Time: 10:00 Stop Time: 11:30 Total Time Billed (hr/min): 90 Billed Treatment Time 1 visit-FA 6 (90 min) co-treat 60 min [id number] individual 30 min [id number] ZEKE CANNON Nov 24, 2016 13:02
--- NOTE | 2016-11-24 13:33 | Physical Therapy Daily Note ---
PT Daily Note-Current Subjective Pt is lying in bed prior to tx. Pt repeatedly states "my head hurts real bad" throughout duration of tx, pt received pain medications prior to tx. Pt is lying in bed, positioned with pillows between and under knees, with nurse call in reach, all needs met post tx, family in room. Mental Status Patient Orientation: Person Attachments: Suprapubic Catheter Transfers Functional [place] Measure 0=Not Assessed/NA 4=Minimal Assistance 1=Total Assistance 5=Supervision or Setup 2=Maximal Assistance 6=Modified [place] 3=Moderate Assistance 7=Complete IndependenceIRFPAI Quality Coding Scale 6 Independent with activity with or without an assistive device 5 Patient requires set up or clean up by helper. Patient completes activity by themselves 4 Supervision or touching assist (CGA). [place] provide cues , steadying assist 3 The helper provides less than half the effort to complete the activity 2 The helper provides more than half the effort to complete the activity 1 Dependent. The helper does all the effort to complete an activity 7 Patient refused to complete or attempt activity 9 The patient did not perform the activity before the current illness or injury 88 Not attempted due to Medical conditions or safety concerns [place] Rollin Weight Bearing Right Lower Extremity: Right Non Weight Bearing Treatments PT manually stretches patient with knee extension, abduction, and ankle dorsiflexion. Patient resists passive motion and stretch throughout treatment, is encouraged to straighten out legs constantly. Patient tends to flex at knees and hip, rotated to left side. Assessment Current Status: Poor Progress Pt is very distracted throughout treatment, very focused on his headache pain. PT Short Term Goals Short Term Goals Time Frame: Nov 30, 2016 Transfers (B,C,W/C) (FIM): 2 PT Reimbursement Director Goals Custodial Goals PT Reimbursement Director Goals Time Frame: Dec 14, 2016 Transfers (B,C,W/C) (FIM): 2 Sit to Lying (QC): 2 Lying-Sitting on Side/Bed(QC): 2 Rollin Roll Left to Right (QC): 2 Chair/[id number]-Pjbdi Xfer(QC): 2 PT Plan Problem List Problem List: Activity Tolerance, Functional Strength, Safety, Balance, Transfer, Bed Mobility, ROM Treatment/Plan Treatment Plan: Continue Plan of Care Treatment Plan: Bed Mobility, Concurrent Therapy, Education, Functional Activity Juanpablo, Functional Strength, Group Therapy, Safety, Therapeutic Exercise , Transfers Treatment Duration: Dec 14, 2016 Frequency: At least 5 of 7 days/Wk (IRF) Estimated Hrs Per Day: 1.5 hours per day Patient and/or Family Agrees t: Yes Safety Risks/Education Patient Education: Correct Positioning, Safety Issues Teaching Recipient: Patient Teaching Methods: Demonstration, Discussion Response to Teaching: Reinforcement Needed Time/GCodes Time In: 1259 Time Out: 1329 Total Billed Treatment Time: 30 Total Billed Treatment 1 visit EX 30 FREDDY TRIMBLE PT Nov 24, 2016 13:33
[2016-11-24 16:00] VITALS: BP 125/75
--- NOTE | 2016-11-24 21:53 | Cardiology Progress Note ---
Cardiology SOAP Progress Note Subjective: No further complaints Objective: I&O/Vital Signs Vital Sign - Last 12Hours 11/24/16 11/24/16 11/24/16 13:00 16:00 19:50 Temp 98.3 Pulse 68 77 95 Resp 18 B/P (MAP) 125/75 Pulse Ox 95 O2 Delivery Room Air Intake and Output 11/25/16 00:00 Intake Total 1200 ml Output Total 1300 ml Balance -100 ml Weight (Pounds): 189 Weight (Ounces): 9.0 Weight (Calculated Kilograms): 85.322976 Constitutional: No appears stated age, No AAO x 3, No apparent distress, No PERRL, No well-developed, No well-nourished, No other Respiratory: No accessory muscle use, No respiratory distress, No chest tender , No chest expansion is symmetric, No chest is bilaterally symmetric, No lungs clear to percussion, No lungs clear to auscultation, No crackles, No rhonchi, No rales, No stridor, No wheezing, No pleural rub, No other Cardiovascular: regular rate-rhythm, No irregularly irregular, No extra beats, No parasternal heave is noted, No JVD, No edema, No bradycardia, No tachycardia , No point of maximal impulse, No cardiac thrills are palpable, S1 and S2, No gallop/S3, No gallop/S4, No diastolic murmur, No systolic murmur, No friction rub, No click, No other Gastrointestional: No tender, No soft, No round, No distended, No pulsatile mass, No organomegaly, No guarding, No rebound, No tenderness, No hernia, No mass, No audible bowel sounds, No abnormal bowel sounds, No abdominal bruits, No spleenomegaly, No other Extremities: No normal range of motion, No non-tender, No normal inspection, No pedal edema, No calf tenderness, No normal capillary refill, No pelvis stable , No calf tenderness, No inflammation, No pedal edema, No slow capillary refill , No swelling, No other, No abrasion, No clubbing, No cyanosis, No ecchymosis, No laceration, No no lower extremity edema bilateral, No significant edema, No tenderness, No wound Neurologic/Psychiatric: No import/export freight forwarder II-XII nml as tested, No no motor/sensory deficits, No normal mood/affect, No abnormal cerebellar tests, No abnormal import/export freight forwarder II-XII, No abnormal gait, No aphasia, No EOM palsy, No facial droop, No motor weakness, No sensory deficit, No depressed affect, No disoriented x 3, No other , No grossly intact, No power is 5/5 both on sides Results/Procedures: Labs Laboratory Tests 11/24/16 04:50: White Blood Count 5.3, Red Blood Count 3.86L, Hemoglobin 11.5L, Hematocrit 37L, Mean Corpuscular Volume 95, Mean Corpuscular Hemoglobin 30, Mean Corpuscular Hemoglobin Concent 31L, Red Cell Distribution Width 12.6, Platelet Count 191, Mean Platelet Volume 10.2, Sodium Level 142, Potassium Level 3.6, Chloride Level 109H, Carbon Dioxide Level 22, Anion Gap 11, Blood Urea Nitrogen 7, Creatinine 0.70, Estimat Glomerular Filtration Rate > 60, BUN/Creatinine Ratio 10, Glucose Level 86, Calcium Level 8.3L, Total Bilirubin 0.3, Aspartate Amino Transf (AST/SGOT) 12, Alanine Aminotransferase (ALT/SGPT) 13, Alkaline Phosphatase 67, Total Protein 6.2L, Albumin 3.4 A/P: Assessment/Dx: Near syncope, hypotension Plan: Telemetry shows no arrhythmias or bradycardia. Blood pressure improved significantly with IV fluids. Continue to hold beta javi. No further symptoms. Dizziness/near syncope could be secondary to dehydration. Thank you for your consultation. Please call me if you have any questions. Jhonatan Martell MD, FACP, FACC, FSCAI, FHRS, CCDS Interventional Cardiology Cardiac Electrophysiology Vascular Medicine and Endovascular Interventions Binta MARTELL MD Nov 24, 2016 9:53 pm
[2016-11-25] MEDS: AMPICILLIN IV SCH ×4 (03:17→21:19)
[2016-11-25] MEDS: NS IV SCH ×4 (03:17→21:19)
[2016-11-25 05:36] VITALS: BP 99/66
[2016-11-25] MEDS: PANTOPRAZOLE 40 MG (PROTONIX) TAB PO SCH (06:19)
[2016-11-25] MEDS: MULTIVIT W/MINERALS TAB (THERAGRAN M) PO SCH (06:22)
[2016-11-25] MEDS ORDERED: INFLUENZA TRIvalent 2017-2018 0.5 ML/45 MCG SYR IM ONE (07:45)
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
[2016-11-25] MEDS: POLYETHYLENE GLYCOL 17 GM (MIRALAX) PACK PO SCH (08:44)
[2016-11-25] MEDS: LACTOBACILLUS Acidoph/Bulgar (LACTINEX/FLORANEX) TAB PO SCH (08:44)
[2016-11-25] MEDS: LEVETIRACETAM 500 MG (KEPPRA) TAB PO SCH ×2 (08:44→21:20)
[2016-11-25] MEDS: DOCUSATE SODIUM 100 MG (COLACE) CAP PO SCH ×2 (08:44→21:20)
[2016-11-25] MEDS: GABAPENTIN 300 MG (NEURONTIN) CAP PO SCH ×3 (08:44→21:20)
[2016-11-25] MEDS: ALFUZOSIN HCL 10 MG TAB (UROXATRAL) PO SCH (08:44)
[2016-11-25] MEDS: RIVAROXABAN 20 MG TABLET (XARELTO) PO SCH (08:44)
[2016-11-25] MEDS: OXYBUTYNIN 10 MG PO SCH ×3 (08:45→21:20)
[2016-11-25] MEDS: BACLOFEN 10 MG (LIORESAL) TAB PO SCH ×3 (10:42→21:19)
--- NOTE | 2016-11-25 10:46 | Occupational Ther Daily Note ---
OT Current Status-Daily Note Subjective Pt alert, lying in bed. Pt agreed to therapy today. Pt perseverated on "Call my mom, I want to talk to my mom." Pt c/o pain at side of head. Nrsg present. Mental Status/Objective Patient Orientation: Person, Place, Time, Situation Functional [place] Measure 0=Not Assessed/NA 4=Minimal Assistance 1=Total Assistance 5=Supervision or Setup 2=Maximal Assistance 6=Modified [place] 3=Moderate Assistance 7=Complete [place] Attachments: Flood Catheter, IV ADL-Treatment Bed bathe with cleansing clothe, dependent. FERREIRA and nrsg dressed pt in bed, dependent. Pt did assist with turning side to side to pull up pants and held onto bedrail to hold self in place. Pt was able to hold clothe to wash R hip. Pt was able to reach mouth to wipe with dry clothe. After therapy, pt lying in bed with call light/phone in reach. All needs met in room. Nrsg present in room feeding pt breakfast. Functional [place] Measure 0=Not Assessed/NA 4=Minimal Assistance 1=Total Assistance 5=Supervision or Setup 2=Maximal Assistance 6=Modified [place] 3=Moderate Assistance 7=Complete IndependenceIRFPAI Quality Coding Scale 6 Independent with activity with or without an assistive device 5 Patient requires set up or clean up by helper. Patient completes activity by themselves 4 Supervision or touching assist (CGA). [place] provide cues , steadying assist 3 The helper provides less than half the effort to complete the activity 2 The helper provides more than half the effort to complete the activity 1 Dependent. The helper does all the effort to complete an activity 7 Patient refused to complete or attempt activity 9 The patient did not perform the activity before the current illness or injury 88 Not attempted due to Medical conditions or safety concerns Upper Body (FIM): 1 Upper Body Dressing (QC): 1 Lower Body Dressing (FIM): 1 Lower Body Dressing (QC): 1 On/Off Footwear (QC): 1 OT Short Term Goals Short Term Goals Time Frame: Dec 06, 2016 Eating(FIM): 3 Grooming(FIM): 3 Bathing(FIM): 2 Upper Body Dressing(FIM): 2 Lower Body Dressing(FIM): 2 Toileting(FIM): 2 Transfers (B,C,W/C) (FIM): 2 Toilet/Commode Transfer(FIM): 2 Additional Short Term Goals: 1-Demonstrate ADL Tasks, 2-Verbalize Understanding , 3-ImproveStrength/Juanpablo 1=Demonstrate adherence to instructed precautions during ADL tasks. 2=Patient will verbalize/demonstrate understanding of assistive devices/ modifications for ADL. 3=Patient will improve strength/tolerance for activity to enable patient to perform ADL's. OT Skilled Nursing Goals Skilled Nursing Goals Time Frame: Dec 27, 2016 Eating (FIM): 4 Eating (QC): 4 Groomin Oral Hygiene (QC): 4 Bathing(FIM): 3 Shower/Bathe Self (QC): 3 Upper Body Dressing(FIM): 3 Upper Body Dressing (QC): 3 Lower Body Dressing(FIM): 3 Lower Body Dressing (QC): 3 On/Off Footwear (QC): 2 Toileting(FIM): 2 Toileting Hygiene (QC): 2 Transfers (B,C,W/C) (FIM): 2 Toilet/Commode Transfer(FIM): 2 Toilet/Commode Transfer (QC): 2 Shower Transfer(FIM): 2 Additional Goals: 1-Demonstrate ADL Tasks, 2-Verbalize Understanding, 3- ImproveStrength/Juanpablo 1=Demonstrate adherence to instructed precautions during ADL tasks. 2=Patient will verbalize/demonstrate understanding of assistive devices/ modifications for ADL. 3=Patient will improve strength/tolerance for activity to enable patient to perform ADL's. OT Education/Plan Discharge Recommendations Plan/Recommendations: Continue POC Treatment Plan/Plan of Care Patient would benefit from OT for education, treatment and training to promote independence in ADL's, mobility, safety and/or upper extremity function for ADL' s. Plan of Care: ADL Retraining, Caregiver Training, Cognitive Retraining, Functional Mobility, Group Exercise/Act as Ind, UE Funct Exercise/Act Treatment Duration: Dec 27, 2016 Frequency: At least 5 of 7 days/Wk (IRF) Estimated Hrs Per Day: 1.5 hours per day Agreement: Yes Rehab Potential: Poor Time/GCodes Start Time: 08:35 Stop Time: 09:20 Total Time Billed (hr/min): 45 Billed Treatment Time 1 visit-FA 3 (45 min) ZEKE CANNON Nov 25, 2016 10:46
--- NOTE | 2016-11-25 12:34 | Physical Therapy Daily Note ---
PT Daily Note-Current Subjective Pt's mother is present and is pleased with his progress. Transfers Functional [place] Measure 0=Not Assessed/NA 4=Minimal Assistance 1=Total Assistance 5=Supervision or Setup 2=Maximal Assistance 6=Modified [place] 3=Moderate Assistance 7=Complete IndependenceIRFPAI Quality Coding Scale 6 Independent with activity with or without an assistive device 5 Patient requires set up or clean up by helper. Patient completes activity by themselves 4 Supervision or touching assist (CGA). [place] provide cues , steadying assist 3 The helper provides less than half the effort to complete the activity 2 The helper provides more than half the effort to complete the activity 1 Dependent. The helper does all the effort to complete an activity 7 Patient refused to complete or attempt activity 9 The patient did not perform the activity before the current illness or injury 88 Not attempted due to Medical conditions or safety concerns Weight Bearing Right Lower Extremity: Right Non Weight Bearing Exercises Performed 30 minutes of (B) LE PROM and AAROM. manual therapy techniques: Soft tissue massage to the (L) hamstings. Worked low trunk rotation. Sidelying manual lumbar jt mobilizations. Seated at edge of bed worked on trunk control, cervical ROM, and cervical soft tissue release. Assessment Current Status: Fair Progress Pt able to provide limited assistance with LE ROM and trunk rotations. Extensor tone was improved while in a seated postion edge of bed. PT Short Term Goals Short Term Goals Time Frame: Nov 30, 2016 Transfers (B,C,W/C) (FIM): 2 PT Load Out Worker Goals Load Out Worker Goals PT Load Out Worker Goals Time Frame: Dec 14, 2016 Transfers (B,C,W/C) (FIM): 2 Sit to Lying (QC): 2 Lying-Sitting on Side/Bed(QC): 2 Rollin Roll Left to Right (QC): 2 Chair/Wyw-ys-Rljty Xfer(QC): 2 PT Plan Problem List Problem List: Activity Tolerance, Functional Strength, Balance, ROM Treatment/Plan Treatment Plan: Continue Plan of Care Treatment Plan: Bed Mobility, Concurrent Therapy, Education, Functional Activity Juanpablo, Functional Strength, Group Therapy, Safety, Therapeutic Exercise , Transfers Treatment Duration: Dec 14, 2016 Frequency: At least 5 of 7 days/Wk (IRF) Estimated Hrs Per Day: 1.5 hours per day Patient and/or Family Agrees t: Yes Safety Risks/Education Response to Teaching: Verbalize Understanding Time/GCodes Time In: 1130 Time Out: 1200 Total Billed Treatment Time: 30 Total Billed Treatment visit, 30 minutes exercise DAPHNE WATSON PT Nov 25, 2016 12:34
--- NOTE | 2016-11-25 13:57 | Progress Note-Hospitalist ---
Progress Note Progress Notes/Assess & Plan Date Seen 11/25/16 Time Seen by Provider: 12:30 Diagonsis/Assessment & Plan Chart Review: No fever Vitals stable CBC, CMP normal Reviewed reports from consultants Patient Interview: Pt and his visitor state he goes by Horace Pt denies experiencing pain Pt's visitor states he had a workout recently and is feeling good Physical exam stable. Pt had a small BM today, but has had a BM everyday AFVSS, Pleasant, difficult to understand, mother at bedside RRR, CTAB Left hand contracted Assessment: TBI 08/27 Severe disability and debility Plan: Maintain in in-pt rehab Monitor pt BM regimen Scribed by Tere Pickett under the direct supervision of Dr. Coleman. TYLER COLEMAN DO Nov 25, 2016 13:57
[2016-11-25] MEDS: diphenhydrAMINE 25 MG TAB (BENADRYL) PO PRN (14:39)
[2016-11-25 17:51] VITALS: BP 106/64
[2016-11-25] MEDS: HYDROcodone/APAP 5 MG/325 MG (LORTAB) TAB PO PRN (21:19)
[2016-11-26] MEDS: AMPICILLIN IV SCH ×4 (03:39→20:29)
[2016-11-26] MEDS: NS IV SCH ×4 (03:39→20:29)
[2016-11-26 06:00] VITALS: BP 117/77
[2016-11-26] MEDS: MULTIVIT W/MINERALS TAB (THERAGRAN M) PO SCH (06:33)
[2016-11-26] MEDS: PANTOPRAZOLE 40 MG (PROTONIX) TAB PO SCH (06:33)
[2016-11-26] MEDS: BACLOFEN 10 MG (LIORESAL) TAB PO SCH ×3 (08:57→20:30)
[2016-11-26] MEDS: DOCUSATE SODIUM 100 MG (COLACE) CAP PO SCH ×2 (08:57→20:30)
[2016-11-26] MEDS: LEVETIRACETAM 500 MG (KEPPRA) TAB PO SCH ×2 (08:57→20:30)
[2016-11-26] MEDS: LACTOBACILLUS Acidoph/Bulgar (LACTINEX/FLORANEX) TAB PO SCH (08:58)
[2016-11-26] MEDS: ALFUZOSIN HCL 10 MG TAB (UROXATRAL) PO SCH (08:58)
[2016-11-26] MEDS: RIVAROXABAN 20 MG TABLET (XARELTO) PO SCH (08:59)
[2016-11-26] MEDS: GABAPENTIN 300 MG (NEURONTIN) CAP PO SCH ×3 (08:59→20:30)
[2016-11-26] MEDS: OXYBUTYNIN 10 MG PO SCH ×3 (09:00→20:31)
[2016-11-26] MEDS: POLYETHYLENE GLYCOL 17 GM (MIRALAX) PACK PO SCH (09:03)
[2016-11-26] MEDS: HYDROcodone/APAP 5 MG/325 MG (LORTAB) TAB PO PRN ×2 (09:24→18:34)
[2016-11-26 18:37] VITALS: BP 126/74
[2016-11-27] MEDS: AMPICILLIN IV SCH ×4 (03:06→21:18)
[2016-11-27] MEDS: NS IV SCH ×4 (03:06→21:18)
[2016-11-27 05:28] LABS: BASOPHILS % (AUTO) 1 % (0-10); EOSINOPHILS # (AUTO) 0.1 10^3/uL (0.0-0.3); EOSINOPHILS % (AUTO) 2 % (0-10); LYMPHOCYTES # (AUTO) 2.3 X 10^3 (1.0-4.0); LYMPHOCYTES % (AUTO) 41 % (12-44); MEAN CORPUSCULAR HEMOGLOBIN 30 PG (25-34); MEAN CORPUSCULAR HGB CONC 31 G/DL (32-36); MEAN CORPUSCULAR VOLUME 95 FL (80-99); MEAN PLATELET VOLUME 10.2 FL (7.4-10.4); MONOCYTES # (AUTO) 0.5 X 10^3 (0.0-1.0); MONOCYTES % (AUTO) 9 % (0-12); NEUTROPHILS # (AUTO) 2.7 X 10^3 (1.8-7.8); NEUTROPHILS % (AUTO) 48 % (42-75); PLATELET COUNT 208 10^3/uL (130-400); RED BLOOD COUNT 3.92 10^6/uL (4.35-5.85); RED CELL DISTRIBUTION WIDTH 12.8 % (10.0-14.5); WHITE BLOOD COUNT 5.7 10^3/uL (4.3-11.0)
[2016-11-27 05:42] LABS: ERYTHROCYTE SEDIMENTATION RATE 10 MM/HR (0-15)
[2016-11-27 05:52] VITALS: BP 122/80
[2016-11-27 05:52] LABS: ALANINE AMINOTRANSFERASE 11 U/L (0-55); ALBUMIN 3.3 GM/DL (3.2-4.5); ANION GAP 9 MMOL/L (5-14); ASPARTATE AMINO TRANSFERASE 11 U/L (5-34); BILIRUBIN,TOTAL 0.2 MG/DL (0.1-1.0); BLOOD UREA NITROGEN 9 MG/DL (7-18); BUN/CREATININE RATIO 13; CALCIUM 8.4 MG/DL (8.5-10.1); CARBON DIOXIDE 26 MMOL/L (21-32); CHLORIDE 109 MMOL/L (98-107); CREATININE SERUM 0.71 MG/DL (0.60-1.30); GFR ESTIMATED > 60; GLUCOSE 87 MG/DL (70-105); POTASSIUM 3.4 MMOL/L (3.6-5.0); SODIUM 144 MMOL/L (135-145); TOTAL PROTEIN 6.2 GM/DL (6.4-8.2)
[2016-11-27] MEDS: MULTIVIT W/MINERALS TAB (THERAGRAN M) PO SCH (06:32)
[2016-11-27] MEDS: PANTOPRAZOLE 40 MG (PROTONIX) TAB PO SCH (06:32)
--- NOTE | 2016-11-27 08:09 | Progress Note (SOAP) ---
Subjective Time Seen by Provider: 08:05 Subjective/Events-last exam Blood in the urine. TBI Objective Exam Vital Signs Date Time Temp Pulse Resp B/P (MAP) Pulse Ox O2 Delivery O2 Flow Rate FiO2 11/27/16 05:52 98.7 78 16 122/80 94 Room Air 11/27/16 01:00 70 11/26/16 20:30 Room Air 11/26/16 19:00 92 11/26/16 18:37 98.0 82 16 126/74 96 Room Air 11/26/16 12:44 93 11/26/16 10:03 Room Air Capillary Refill : General Appearance: No Apparent Distress, WD/WN Respiratory: Normal Breath Sounds, No Accessory Muscle Use, No Respiratory Distress Cardiovascular: Regular Rate, Rhythm, No Murmur Results Lab Laboratory Tests 11/27/16 05:18 Laboratory Tests 11/27/16 05:18: White Blood Count 5.7, Red Blood Count 3.92L, Hemoglobin 11.7L, Hematocrit 37L, Mean Corpuscular Volume 95, Mean Corpuscular Hemoglobin 30, Mean Corpuscular Hemoglobin Concent 31L, Red Cell Distribution Width 12.8, Platelet Count 208, Mean Platelet Volume 10.2, Neutrophils (%) (Auto) 48, Lymphocytes (%) (Auto) 41 , Monocytes (%) (Auto) 9, Eosinophils (%) (Auto) 2, Basophils (%) (Auto) 1, Neutrophils # (Auto) 2.7, Lymphocytes # (Auto) 2.3, Monocytes # (Auto) 0.5, Eosinophils # (Auto) 0.1, Basophils # (Auto) 0.0, Erythrocyte Sedimentation Rate 10, Sodium Level 144, Potassium Level 3.4L, Chloride Level 109H, Carbon Dioxide Level 26, Anion Gap 9, Blood Urea Nitrogen 9, Creatinine 0.71, Estimat Glomerular Filtration Rate > 60, BUN/Creatinine Ratio 13, Glucose Level 87, Calcium Level 8.4L, Total Bilirubin 0.2, Aspartate Amino Transf (AST/SGOT) 11, Alanine Aminotransferase (ALT/SGPT) 11, Alkaline Phosphatase 71, Total Protein 6.2L, Albumin 3.3 Assessment/Plan Assessment/Plan Assess & Plan/Chief Complaint TBI. Osteomyelitis. Fractures. Patient feeling better today. . . Patient having blood in the urine to see urologist today. 10/16/17. TBI. Fractures. Patient voicing no complaints today Clinical Quality Measures DVT/VTE Risk/Contraindication: Risk Factor Score Per Nursin RFS Level Per Nursing on Admit: 3=High JOON WALTER DO Nov 27, 2016 08:09
[2016-11-27] MEDS ORDERED: KCL 10 MEQ TAB (MICRO K) PO NR (08:15)
[2016-11-27] MEDS: POLYETHYLENE GLYCOL 17 GM (MIRALAX) PACK PO SCH (08:33)
[2016-11-27] MEDS: BACLOFEN 10 MG (LIORESAL) TAB PO SCH ×3 (08:33→21:19)
[2016-11-27] MEDS: LEVETIRACETAM 500 MG (KEPPRA) TAB PO SCH ×2 (08:33→21:18)
[2016-11-27] MEDS: GABAPENTIN 300 MG (NEURONTIN) CAP PO SCH ×3 (08:33→21:18)
[2016-11-27] MEDS: ALFUZOSIN HCL 10 MG TAB (UROXATRAL) PO SCH (08:33)
[2016-11-27] MEDS: RIVAROXABAN 20 MG TABLET (XARELTO) PO SCH (08:33)
[2016-11-27] MEDS: LORATADINE (CLARITIN) 10 MG TAB PO PRN (08:33)
[2016-11-27] MEDS: DOCUSATE SODIUM 100 MG (COLACE) CAP PO SCH ×2 (08:33→21:18)
[2016-11-27] MEDS: LACTOBACILLUS Acidoph/Bulgar (LACTINEX/FLORANEX) TAB PO SCH (08:34)
[2016-11-27] MEDS: OXYBUTYNIN 10 MG PO SCH ×3 (08:34→21:20)
[2016-11-27] MEDS: HYDROcodone/APAP 5 MG/325 MG (LORTAB) TAB PO PRN ×3 (10:16→21:19)
--- NOTE | 2016-11-27 11:01 | Physical Therapy Daily Note ---
PT Daily Note-Current Subjective Patient in bed pre tx, does not want to participate in therapy, need max encouragement. Patient in lying on his back with his lower trunk rotated to the left and knee and hips flexed to the max. Appearance Patient in wheelchair with OT post tx. Mental Status Patient Orientation: Person Attachments: Suprapubic Catheter Transfers Functional [place] Measure 0=Not Assessed/NA 4=Minimal Assistance 1=Total Assistance 5=Supervision or Setup 2=Maximal Assistance 6=Modified [place] 3=Moderate Assistance 7=Complete IndependenceIRFPAI Quality Coding Scale 6 Independent with activity with or without an assistive device 5 Patient requires set up or clean up by helper. Patient completes activity by themselves 4 Supervision or touching assist (CGA). [place] provide cues , steadying assist 3 The helper provides less than half the effort to complete the activity 2 The helper provides more than half the effort to complete the activity 1 Dependent. The helper does all the effort to complete an activity 7 Patient refused to complete or attempt activity 9 The patient did not perform the activity before the current illness or injury 88 Not attempted due to Medical conditions or safety concerns Transfers (B, C, W/C) (FIM): 1 Scootin Rollin Supine to/from Sit: 1 Bed to/from Chair: 1 Patient will assist a little with his right arm when turning but not enough to be considered max assist. Patient transfers using a zoey. Weight Bearing Right Lower Extremity: Right Non Weight Bearing Treatments dressing, rolling, transfers, sitting at the edge of mat, ROM. Patient was transferred to his wheelchair via zoey from his bed and then taken to the therapy gym and then transferred to the therapy table. He was able to sit at the edge of the table for approx 20 min with mod A of 2. He worked on weight shifting and sitting balance while OT worked on UE ROM. Patient stated over and over that he had a lot of pain and wanted to go back to bed. Upon attempting to stretch his LE's patient extends his back and tries to lay down, scooting his hips almost off the table. Patient then put back into his wheelchair and resume LE stretching. Patient has severe knee contractures that did not seem to improve any with stretching. Assessment Current Status: Poor Progress No change in mobility, poor patient motivation and safety awareness. PT Short Term Goals Short Term Goals Time Frame: Nov 30, 2016 Transfers (B,C,W/C) (FIM): 2 PT [facility] Goals Merchandise Execution Leader Goals PT Merchandise Execution Leader Goals Time Frame: Dec 14, 2016 Transfers (B,C,W/C) (FIM): 2 Sit to Lying (QC): 2 Lying-Sitting on Side/Bed(QC): 2 Rollin Roll Left to Right (QC): 2 Chair/Jjk-ju-Edjzd Xfer(QC): 2 PT Plan Problem List Problem List: Activity Tolerance, Functional Strength, Safety, Balance, Gait, Transfer, Bed Mobility, ROM Treatment/Plan Treatment Plan: Continue Plan of Care Treatment Plan: Bed Mobility, Concurrent Therapy, Education, Functional Activity Juanpablo, Functional Strength, Group Therapy, Safety, Therapeutic Exercise , Transfers Treatment Duration: Dec 14, 2016 Frequency: At least 5 of 7 days/Wk (IRF) Estimated Hrs Per Day: 1.5 hours per day Patient and/or Family Agrees t: Yes Safety Risks/Education Patient Education: Transfer Techniques, Correct Positioning, W/C Management, Disease Process, Safety Issues Teaching Recipient: Patient Teaching Methods: Demonstration, Discussion Response to Teaching: Reinforcement Needed Time/GCodes Time In: 1000 Time Out: 1101 Total Billed Treatment Time: 61 Total Billed Treatment 1 visit EX 15' NM 20' FA 26' co-treated with OT for the whole 61 min. OT worked on UE ROM and dressing, PT worked on sitting balance and LE stretching. FREDDY TRIMBLE PT Nov 27, 2016 11:01
--- NOTE | 2016-11-27 12:21 | Occupational Ther Daily Note ---
OT Current Status-Daily Note Subjective Pt alert, lying in bed. Nrsg present in room. Pt perseverating on " I want to call my mom." Pt's mother did call at this time so pt was able to talk to her. Pt requires encouragement to get out of bed and sit up to do therapy. Mental Status/Objective Patient Orientation: Person, Unable to Assess Functional [place] Measure 0=Not Assessed/NA 4=Minimal Assistance 1=Total Assistance 5=Supervision or Setup 2=Maximal Assistance 6=Modified [place] 3=Moderate Assistance 7=Complete [place] Attachments: IV, Suprapubic Catheter ADL-Treatment Co-treatment with PT. PT worked on sitting balance and LE stretching while OT worked on UE ROM and dressing, .Pt dependent with donning pants. Assist x2 to don over feet then to pull up LE while 2nd person held LE up then assist to roll while 2nd person hiked pants over hips. Reva sling placed under pt for transfer at this time. Pt transferred via reva lift to w/c. Transported to therapy gym and transferred with reva lift to therapy mat. PT worked on sitting balance while OT placed UE in position for wt bearing. R UE able to reach to mat though pt unable to extend wrist to have hand flat on surface, pt had to place digit at DIP and PIP onto mat for wt bearing. L UE required to have a raised surface to place under elbow due to decreased ROM from elbow to digits. Pt was able to lean side to side with verbal cues and min A to stay forward. As PT stretched pt's LE's, pt attempted to push self backward and thrust hips forward. Pt then was transferred with reva lift back to / and PROM stretching to UE's. Pt then was positioned in w[facility]c [facility]. OT continued for individual treatment. Pt was able to grasp cones and stack them 5 high at midline. Then grasped and took off stack to place them with outstretched R UE. Attempted to use L UE to push 5 cones, one at a time, forward 1", assist required unable to complete with AROM. MHP placed on L wrist and forearm for 20 min while pt used R to place cards in card [place] and complete card activity to work on grasp/release, arm extension and visual perception. Pt was able to manipulate cards though required assist to place in area that pt wanted them in. Massage and PROM to L UE after MHP was completed. Moist, white area in elbow crease noted, reported to nrsg. Pt did demonstrate increased PROM to L elbow and wrist. Pt c/o about then discomfort of stretching and requested for FERREIRA to stop. Family member present and encouraged pt to let FERREIRA stretch UE so there could be more motion. Family member ordered pt's food and FERREIRA took pt back to room. All needs met in room. Functional [place] Measure 0=Not Assessed/NA 4=Minimal Assistance 1=Total Assistance 5=Supervision or Setup 2=Maximal Assistance 6=Modified [place] 3=Moderate Assistance 7=Complete IndependenceIRFPAI Quality Coding Scale 6 Independent with activity with or without an assistive device 5 Patient requires set up or clean up by helper. Patient completes activity by themselves 4 Supervision or touching assist (CGA). [place] provide cues , steadying assist 3 The helper provides less than half the effort to complete the activity 2 The helper provides more than half the effort to complete the activity 1 Dependent. The helper does all the effort to complete an activity 7 Patient refused to complete or attempt activity 9 The patient did not perform the activity before the current illness or injury 88 Not attempted due to Medical conditions or safety concerns OT Short Term Goals Short Term Goals Time Frame: Dec 06, 2016 Eating(FIM): 3 Grooming(FIM): 3 Bathing(FIM): 2 Upper Body Dressing(FIM): 2 Lower Body Dressing(FIM): 2 Toileting(FIM): 2 Transfers (B,C,W/C) (FIM): 2 Toilet/Commode Transfer(FIM): 2 Additional Short Term Goals: 1-Demonstrate ADL Tasks, 2-Verbalize Understanding , 3-ImproveStrength/Juanpablo 1=Demonstrate adherence to instructed precautions during ADL tasks. 2=Patient will verbalize/demonstrate understanding of assistive devices/ modifications for ADL. 3=Patient will improve strength/tolerance for activity to enable patient to perform ADL's. OT Heat Set Operator Goals Senior Care Goals Time Frame: Dec 27, 2016 Eating (FIM): 4 Eating (QC): 4 Groomin Oral Hygiene (QC): 4 Bathing(FIM): 3 Shower/Bathe Self (QC): 3 Upper Body Dressing(FIM): 3 Upper Body Dressing (QC): 3 Lower Body Dressing(FIM): 3 Lower Body Dressing (QC): 3 On/Off Footwear (QC): 2 Toileting(FIM): 2 Toileting Hygiene (QC): 2 Transfers (B,C,W/C) (FIM): 2 Toilet/Commode Transfer(FIM): 2 Toilet/Commode Transfer (QC): 2 Shower Transfer(FIM): 2 Additional Goals: 1-Demonstrate ADL Tasks, 2-Verbalize Understanding, 3- ImproveStrength/Juanpablo 1=Demonstrate adherence to instructed precautions during ADL tasks. 2=Patient will verbalize/demonstrate understanding of assistive devices/ modifications for ADL. 3=Patient will improve strength/tolerance for activity to enable patient to perform ADL's. OT Education/Plan Discharge Recommendations Plan/Recommendations: Continue POC Treatment Plan/Plan of Care Patient would benefit from OT for education, treatment and training to promote independence in ADL's, mobility, safety and/or upper extremity function for ADL' s. Plan of Care: ADL Retraining, Caregiver Training, Cognitive Retraining, Functional Mobility, Group Exercise/Act as Ind, UE Funct Exercise/Act Treatment Duration: Dec 27, 2016 Frequency: At least 5 of 7 days/Wk (IRF) Estimated Hrs Per Day: 1.5 hours per day Agreement: Yes Rehab Potential: Poor Time/GCodes Start Time: 10:00 Stop Time: 11:40 Total Time Billed (hr/min): 100 Billed Treatment Time 1 visit-FA 7 (100 min) co-treat [id number] individual [id number] ZEKE CANNON Nov 27, 2016 12:21
--- NOTE | 2016-11-27 12:37 | Speech Therapy Daily Note ---
Speech Daily Progress Note Subjective Date Seen by Provider: Nov 27, 2016 Time Seen by Provider: 09:00 The patient was laying in bed upon entrance. The patient requested a small towel and aid in wiping/washing his face. The clinician provided requested care prior to the start of the session. The patient was agreeable to speech and language therapy on this date. Objective Oral Motor Exercises: Oral motor (labial and lingual) strengthening exercises were introduced on this date. The clinician provided a handout, as well as, provided consistent direct modeling. The patient displayed fair accuracy with exercises, however, required consistent verbal prompting and verbal encouragement for continued participation. Throughout one demonstrated exercise , the patient shook his head no. When asked why he did not wish to complete the exercise the patient stated, "I don't like it." Ten repetitions of each exercise were attempted. Assessment Assessment Current Status: Poor Progress Treatment Plan Continue Plan of Care Communication Comprehension: 3 Expression: 2 Social Cognition Social Interaction: 3 Problem Solvin Memory: 3 Speech Short Term Goals Short Term Goals Short Term Goals 1. The patient will complete a full cognitive evaluation with mild clinician verbal prompting. MET (11/23/16) 2. The patient will display 80% accuracy with structured word-finding tasks with mild clinician verbal prompting. 3. The patient will demonstrate 80% accuracy with sequencing of ADL tasks with minimal clinician verbal prompting. 4. The patient will complete structured deductive reasoning tasks with 80% accuracy and mild clinician cueing. 5. The patient will display 80% accuracy with oral motor exercises with mild clinician direct modeling. 6. The patient will demonstrate 80% accuracy with oral and lingual range of motion and strengthening exercises with mild clinician verbal cueing. Time Frame-STG: Three Weeks Speech Learning Consultant Goals Mcfp Goals 1. The patient will improve cognitive linguistic skills for increased function and safety with ADL's in the least restrictive setting. 2. The patient will tolerate the least restrictive diet without signs/symptoms of aspiration or laryngeal penetration. Time Frame: Four Weeks Speech-Plan Treatment Plan Speech Therapy Treatment Plan: Continue Plan of Care Continue skilled speech pathology to target functional expressive and receptive communication. Treatment Duration: Dec 27, 2016 Frequency: Modified Program (IRF) (Four to Five Treatment Sessions Per Week) Estimated Hrs Per Day: .5 hour per day Rehab Potential: Poor Safety Risks/Education Teaching Recipient: Patient Teaching Methods: Demonstration, Handout, Discussion Response to Teaching: Verbalize Understanding Education Topics Provided: Oral Motor Exercises Time Speech Therapy Time In: 09:00 Speech Therapy Time Out: 09:45 Total Billed Time: 45 Billed Treatment Time 1, PHILLY CABRERA Nov 27, 2016 12:37
[2016-11-27] MEDS: IBUPROFEN TABLET 200 MG TAB PO PRN ×2 (12:58→19:07)
[2016-11-27] MEDS ORDERED: [UNRECOGNIZED DRUG - REMARK] PO SCH (13:00)
[2016-11-27] MEDS: MILK OF MAGNESIA 400 MG/5 ML 30 ML UDC PO PRN (13:05)
--- NOTE | 2016-11-27 13:44 | Physical Therapy Daily Note ---
PT Daily Note-Current Subjective Patient repeats, "My head hurt, my heat hurts." RN aware. Transfers Functional [place] Measure 0=Not Assessed/NA 4=Minimal Assistance 1=Total Assistance 5=Supervision or Setup 2=Maximal Assistance 6=Modified [place] 3=Moderate Assistance 7=Complete IndependenceIRFPAI Quality Coding Scale 6 Independent with activity with or without an assistive device 5 Patient requires set up or clean up by helper. Patient completes activity by themselves 4 Supervision or touching assist (CGA). [place] provide cues , steadying assist 3 The helper provides less than half the effort to complete the activity 2 The helper provides more than half the effort to complete the activity 1 Dependent. The helper does all the effort to complete an activity 7 Patient refused to complete or attempt activity 9 The patient did not perform the activity before the current illness or injury 88 Not attempted due to Medical conditions or safety concerns Transfers (B, C, W/C) (FIM): 1 Scootin Rollin Roll Left to Right (QC): 1 Supine to/from Sit: 1 Sit to Lying (QC): 1 Chair/Icw-nk-Zzsfn Xfer(QC): 1 Bed to/from Chair: 1 Reva lift transfers Weight Bearing Right Lower Extremity: Right Non Weight Bearing Treatments Bilateral LE PROM to stretch hamstrings. Patient presents with severe bilateral knee flexion contractures. Patient has increase c/o patient with all PROM and PT is asked to stop. Assessment Current Status: Poor Progress PT Short Term Goals Short Term Goals Time Frame: Nov 30, 2016 Transfers (B,C,W/C) (FIM): 2 PT Longterm Goals Longterm Goals PT Nursing Teacher Goals Time Frame: Dec 14, 2016 Transfers (B,C,W/C) (FIM): 2 Sit to Lying (QC): 2 Lying-Sitting on Side/Bed(QC): 2 Rollin Roll Left to Right (QC): 2 Chair/Eip-nj-Tngqz Xfer(QC): 2 PT Plan Treatment/Plan Treatment Plan: Continue Plan of Care Treatment Plan: Bed Mobility, Concurrent Therapy, Education, Functional Activity Juanpablo, Functional Strength, Group Therapy, Safety, Therapeutic Exercise , Transfers Treatment Duration: Dec 14, 2016 Frequency: At least 5 of 7 days/Wk (IRF) Estimated Hrs Per Day: 1.5 hours per day Patient and/or Family Agrees t: Yes Time/GCodes Time In: 1240 Time Out: 1309 Total Billed Treatment Time: 29 Total Billed Treatment 1 visit EX x 2 29 min AMANDA CAMPOS PT Nov 27, 2016 13:44
[2016-11-27 18:32] VITALS: BP 125/76
[2016-11-28] MEDS: AMPICILLIN IV SCH ×4 (03:40→21:19)
[2016-11-28] MEDS: NS IV SCH ×4 (03:40→21:19)
[2016-11-28 06:04] VITALS: BP 125/80
[2016-11-28] MEDS: PANTOPRAZOLE 40 MG (PROTONIX) TAB PO SCH (06:33)
[2016-11-28] MEDS: MULTIVIT W/MINERALS TAB (THERAGRAN M) PO SCH (06:33)
[2016-11-28] MEDS: BISACODYL 10 MG SUPP (DULCOLAX) PR PRN (07:42)
[2016-11-28] MEDS: ONDANSETRON 4 MG (ZOFRAN) ORAL DISSOLVE TAB PO PRN (08:00)
[2016-11-28] MEDS: POLYETHYLENE GLYCOL 17 GM (MIRALAX) PACK PO SCH (08:18)
[2016-11-28] MEDS: LEVETIRACETAM 500 MG (KEPPRA) TAB PO SCH ×2 (08:19→21:20)
[2016-11-28] MEDS: LORATADINE (CLARITIN) 10 MG TAB PO PRN (08:19)
[2016-11-28] MEDS: GABAPENTIN 300 MG (NEURONTIN) CAP PO SCH ×3 (08:19→21:20)
[2016-11-28] MEDS: DOCUSATE SODIUM 100 MG (COLACE) CAP PO SCH ×2 (08:20→21:20)
[2016-11-28] MEDS: ALFUZOSIN HCL 10 MG TAB (UROXATRAL) PO SCH (08:20)
[2016-11-28] MEDS: LACTOBACILLUS Acidoph/Bulgar (LACTINEX/FLORANEX) TAB PO SCH (08:20)
[2016-11-28] MEDS: BACLOFEN 10 MG (LIORESAL) TAB PO SCH ×3 (08:20→21:20)
[2016-11-28] MEDS: RIVAROXABAN 20 MG TABLET (XARELTO) PO SCH (08:20)
[2016-11-28] MEDS: OXYBUTYNIN 10 MG PO SCH ×3 (08:21→21:19)
[2016-11-28] MEDS: HYDROcodone/APAP 5 MG/325 MG (LORTAB) TAB PO PRN ×2 (08:56→18:49)
--- NOTE | 2016-11-28 09:57 | Speech Therapy Daily Note ---
Speech Daily Progress Note Subjective Date Seen by Provider: Nov 28, 2016 Time Seen by Provider: 09:15 The patient was laying in bed upon entrance. The patient greeted the clinician and was agreeable to participation in dysphagia and speech therapy on this date. Objective To note: The patient required maximum, consistent verbal cueing and encouragement for limited participation in the speech pathology session. The patient consistently closed eyes and shook head, "no" when requested to perform oral motor and oropharyngeal strengthening exercises. The patient stated his rationale for speech therapy was to "learn to talk better." The clinician used the patient's goal in attempts to motivate the patient to participate, however, the patient continued refusal. Oral Motor Exercises: Oral motor (labial and lingual) exercises were continued on this date with limited participation and accuracy. The patient attempted lingual protrusion and lateralization, however, did not complete ten repetitions of each exercise regardless of maximum clinician prompting. Oropharyngeal Strengthening Exercises: Swallowing exercises were initiated on this date. The clinician attempted an effortful swallow, base of tongue retraction, and adductor exercises. The patient performed limited repetitions of exercises and continuously shook head, "no." Assessment Assessment Current Status: Poor Progress Treatment Plan Continue Plan of Care Communication Comprehension: 3 Expression: 3 Social Cognition Social Interaction: 1 Problem Solvin Memory: 2 Speech Short Term Goals Short Term Goals Short Term Goals 1. The patient will complete a full cognitive evaluation with mild clinician verbal prompting. MET (11/23/16) 2. The patient will display 80% accuracy with structured word-finding tasks with mild clinician verbal prompting. 3. The patient will demonstrate 80% accuracy with sequencing of ADL tasks with minimal clinician verbal prompting. 4. The patient will complete structured deductive reasoning tasks with 80% accuracy and mild clinician cueing. 5. The patient will display 80% accuracy with oral motor exercises with mild clinician direct modeling. 6. The patient will demonstrate 80% accuracy with oral and lingual range of motion and strengthening exercises with mild clinician verbal cueing. Time Frame-STG: Three Weeks Speech Wire Coating Machine Operator Goals Wire Coating Machine Operator Goals 1. The patient will improve cognitive linguistic skills for increased function and safety with ADL's in the least restrictive setting. 2. The patient will tolerate the least restrictive diet without signs/symptoms of aspiration or laryngeal penetration. Time Frame: Four Weeks Speech-Plan Treatment Plan Speech Therapy Treatment Plan: Continue Plan of Care Continue skilled speech pathology to target labial, lingual, and oropharyngeal strengthening for improved speech and swallowing. Treatment Duration: Dec 27, 2016 Frequency: Modified Program (IRF) (Four to Five Treatment Sessions Per Week) Estimated Hrs Per Day: .5 hour per day Rehab Potential: Poor Safety Risks/Education Teaching Recipient: Patient Teaching Methods: Demonstration, Discussion Response to Teaching: Unable to Return Demonstration, Reinforcement Needed Education Topics Provided: Oral Motor Exercises, Oropharyngeal Exercises Time Speech Therapy Time In: 09:15 Speech Therapy Time Out: 09:45 Total Billed Time: 30 Billed Treatment Time 1, ELMO (15 Minutes) 1, RANDOLPH (15 Minutes) PHILLY HAZEL Nov 28, 2016 09:57
--- NOTE | 2016-11-28 11:43 | Occupational Ther Daily Note ---
OT Current Status-Daily Note Subjective Pt alert, lying in bed. Pt to leave for appointment around noon. Pt and his mother agreed to get shower this morning. Pt perseverated on telling therapist to be gentle. Mental Status/Objective Patient Orientation: Person, Place, Time, Situation Functional [place] Measure 0=Not Assessed/NA 4=Minimal Assistance 1=Total Assistance 5=Supervision or Setup 2=Maximal Assistance 6=Modified [place] 3=Moderate Assistance 7=Complete [place] Attachments: Flood Catheter, IV, Suprapubic Catheter ADL-Treatment OT/PT co-treat today. PT worked on LE stretching, sitting balance decreasing lower body extension and OT worked on bathing and dressing. Pt did reach with R UE for the L bedrail, assist with rolling and holding position. Pt transferred with zoey to w/c from bed then shower chair then back to bed. Dependent with bathing and dressing. Pt c/o body being sensitive and everything hurting. Pt was dressed in bed. With assistance to hold legs in flexion, pt was able to bridge just enough to have 2 people hike pants over hips. After therapy, nrsg present in room with family. All needs met in room. Functional [place] Measure 0=Not Assessed/NA 4=Minimal Assistance 1=Total Assistance 5=Supervision or Setup 2=Maximal Assistance 6=Modified [place] 3=Moderate Assistance 7=Complete IndependenceIRFPAI Quality Coding Scale 6 Independent with activity with or without an assistive device 5 Patient requires set up or clean up by helper. Patient completes activity by themselves 4 Supervision or touching assist (CGA). [place] provide cues , steadying assist 3 The helper provides less than half the effort to complete the activity 2 The helper provides more than half the effort to complete the activity 1 Dependent. The helper does all the effort to complete an activity 7 Patient refused to complete or attempt activity 9 The patient did not perform the activity before the current illness or injury 88 Not attempted due to Medical conditions or safety concerns Bathing (FIM): 1 Shower/Bathe Self (QC): 1 Upper Body (FIM): 1 Upper Body Dressing (QC): 1 Lower Body Dressing (FIM): 1 Lower Body Dressing (QC): 1 On/Off Footwear (QC): 1 Toileting (FIM): 1 Toileting Hygiene (QC): 1 Transfers (B, C, W/C) (FIM): 1 Toilet/Commode Transfer (FIM): 0 Shower Transfer(FIM): 1 OT Short Term Goals Short Term Goals Time Frame: Dec 06, 2016 Eating(FIM): 3 Grooming(FIM): 3 Bathing(FIM): 2 Upper Body Dressing(FIM): 2 Lower Body Dressing(FIM): 2 Toileting(FIM): 2 Transfers (B,C,W/C) (FIM): 2 Toilet/Commode Transfer(FIM): 2 Additional Short Term Goals: 1-Demonstrate ADL Tasks, 2-Verbalize Understanding , 3-ImproveStrength/Juanpablo 1=Demonstrate adherence to instructed precautions during ADL tasks. 2=Patient will verbalize/demonstrate understanding of assistive devices/ modifications for ADL. 3=Patient will improve strength/tolerance for activity to enable patient to perform ADL's. OT [place] Winder Goals [facility] Goals Time Frame: Dec 27, 2016 Eating (FIM): 4 Eating (QC): 4 Groomin Oral Hygiene (QC): 4 Bathing(FIM): 3 Shower/Bathe Self (QC): 3 Upper Body Dressing(FIM): 3 Upper Body Dressing (QC): 3 Lower Body Dressing(FIM): 3 Lower Body Dressing (QC): 3 On/Off Footwear (QC): 2 Toileting(FIM): 2 Toileting Hygiene (QC): 2 Transfers (B,C,W/C) (FIM): 2 Toilet/Commode Transfer(FIM): 2 Toilet/Commode Transfer (QC): 2 Shower Transfer(FIM): 2 Additional Goals: 1-Demonstrate ADL Tasks, 2-Verbalize Understanding, 3- ImproveStrength/Juanpablo 1=Demonstrate adherence to instructed precautions during ADL tasks. 2=Patient will verbalize/demonstrate understanding of assistive devices/ modifications for ADL. 3=Patient will improve strength/tolerance for activity to enable patient to perform ADL's. OT Education/Plan Discharge Recommendations Plan/Recommendations: Continue POC Treatment Plan/Plan of Care Patient would benefit from OT for education, treatment and training to promote independence in ADL's, mobility, safety and/or upper extremity function for ADL' s. Plan of Care: ADL Retraining, Caregiver Training, Cognitive Retraining, Functional Mobility, Group Exercise/Act as Ind, UE Funct Exercise/Act Treatment Duration: Dec 27, 2016 Frequency: At least 5 of 7 days/Wk (IRF) Estimated Hrs Per Day: 1.5 hours per day Agreement: Yes Rehab Potential: Poor Time/GCodes Start Time: 10:00 Stop Time: 11:00 Total Time Billed (hr/min): 60 Billed Treatment Time 1 visit-ADL 4 (60 min) co-treat with PT [id number] (60 min) ZEKE CANNON Nov 28, 2016 11:43
--- NOTE | 2016-11-28 11:58 | Physical Therapy Daily Note ---
PT Daily Note-Current Subjective Patient in bed pre tx, states he has pain everywhere. Will be co-treating with OT for shower, bed mobility and transfers, and dressing. Appearance Patient in bed post tx,OT finishing up with him. Mental Status Patient Orientation: Person Attachments: Suprapubic Catheter Transfers Functional [place] Measure 0=Not Assessed/NA 4=Minimal Assistance 1=Total Assistance 5=Supervision or Setup 2=Maximal Assistance 6=Modified [place] 3=Moderate Assistance 7=Complete IndependenceIRFPAI Quality Coding Scale 6 Independent with activity with or without an assistive device 5 Patient requires set up or clean up by helper. Patient completes activity by themselves 4 Supervision or touching assist (CGA). [place] provide cues , steadying assist 3 The helper provides less than half the effort to complete the activity 2 The helper provides more than half the effort to complete the activity 1 Dependent. The helper does all the effort to complete an activity 7 Patient refused to complete or attempt activity 9 The patient did not perform the activity before the current illness or injury 88 Not attempted due to Medical conditions or safety concerns Transfers (B, C, W/C) (FIM): 1 Scootin Rollin Chair/[id number]-Rxrxk Xfer(QC): 1 Bed to/from Chair: 1 Patient dependent for bed mobility, he can assist a little when turning to the left using his right arm but not enough to be max assist. Transfers from bed to chair using a zoey. Weight Bearing Right Lower Extremity: Right Non Weight Bearing Treatments Patient had to roll back and forth many times for changing bed and dressing and getting sling under and out from beneath him, cues for assist from patient. Patient was transferred to wheelchair and taken to shower room, PT assisting with transfers and bed mobility and sitting balance and bathing. Patient back in bed when done. Assessment Current Status: Poor Progress no change in mobility PT Short Term Goals Short Term Goals Time Frame: Nov 30, 2016 Transfers (B,C,W/C) (FIM): 2 PT Snf Goals Snf Goals PT Button Spindler Goals Time Frame: Dec 14, 2016 Transfers (B,C,W/C) (FIM): 2 Sit to Lying (QC): 2 Lying-Sitting on Side/Bed(QC): 2 Rollin Roll Left to Right (QC): 2 Chair/Pfn-wt-Ajrxe Xfer(QC): 2 PT Plan Problem List Problem List: Activity Tolerance, Functional Strength, Safety, Balance, Transfer, Bed Mobility, ROM Treatment/Plan Treatment Plan: Continue Plan of Care Treatment Plan: Bed Mobility, Concurrent Therapy, Education, Functional Activity Juanpablo, Functional Strength, Group Therapy, Safety, Therapeutic Exercise , Transfers Treatment Duration: Dec 14, 2016 Frequency: At least 5 of 7 days/Wk (IRF) Estimated Hrs Per Day: 1.5 hours per day Patient and/or Family Agrees t: Yes Safety Risks/Education Patient Education: Transfer Techniques, Correct Positioning, W/C Management, Instructions to Caregiver, Safety Issues Teaching Recipient: Patient Teaching Methods: Demonstration, Discussion Response to Teaching: Reinforcement Needed Time/GCodes Time In: 1000 Time Out: 1100 Total Billed Treatment Time: 60 Total Billed Treatment 1 visit FA 60' co-treated with OT for the whole 60', OT worked on bed mobility and transfers and bathing and dressing, PT worked on bed mobility and transfers and sitting balance and bathing FREDDY TRIMBLE PT Nov 28, 2016 11:58
[2016-11-28] MEDS: IBUPROFEN TABLET 200 MG TAB PO PRN (12:27)
[2016-11-28 19:00] VITALS: BP 127/77
--- NOTE | 2016-11-28 21:31 | PM & R (SOAP) Progress Note ---
Subjective Time Seen by Provider: 21:25 Subjective/Events-last exam Patient was seen in his room with RN Patient had outside appointment today for chage out of Suprapubic catheter Appreciate DR Ratliff note and DR dunn notes Patient dependent for transfers Awakens and shakes my hand Review of Systems Neurological: Weakness Objective Exam Last Set of Vital Signs Vital Signs Date Time Temp Pulse Resp B/P (MAP) Pulse Ox O2 Delivery O2 Flow Rate FiO2 11/28/16 19:05 Room Air 11/28/16 19:00 96.6 78 16 127/77 94 Capillary Refill : I&O Intake and Output 11/29/16 00:00 Intake Total 1250 ml Output Total 1200 ml Balance 50 ml Intake Oral 1250 ml Output Urine Total 1200 ml # Bowel Movements 2 General: Cooperative, No Acute Distress HEENT: Mucous Memb Moist/[place] Neck: Supple, No JVD Lungs: Clear to Auscultation Heart: Regular Rate Abdomen: Normal Bowel Sounds, Soft, No Tenderness, Other (Suprapubic catheter in place) Extremities: Other (Plus contractures and rt ankle dressed) Neuro: Other (WEakness and contractures . lower limbs then uppers) Results Lab Laboratory Tests 11/27/16 05:18: White Blood Count 5.7, Red Blood Count 3.92L, Hemoglobin 11.7L, Hematocrit 37L, Mean Corpuscular Volume 95, Mean Corpuscular Hemoglobin 30, Mean Corpuscular Hemoglobin Concent 31L, Red Cell Distribution Width 12.8, Platelet Count 208, Mean Platelet Volume 10.2, Neutrophils (%) (Auto) 48, Lymphocytes (%) (Auto) 41 , Monocytes (%) (Auto) 9, Eosinophils (%) (Auto) 2, Basophils (%) (Auto) 1, Neutrophils # (Auto) 2.7, Lymphocytes # (Auto) 2.3, Monocytes # (Auto) 0.5, Eosinophils # (Auto) 0.1, Basophils # (Auto) 0.0, Erythrocyte Sedimentation Rate 10, Sodium Level 144, Potassium Level 3.4L, Chloride Level 109H, Carbon Dioxide Level 26, Anion Gap 9, Blood Urea Nitrogen 9, Creatinine 0.71, Estimat Glomerular Filtration Rate > 60, BUN/Creatinine Ratio 13, Glucose Level 87, Calcium Level 8.4L, Total Bilirubin 0.2, Aspartate Amino Transf (AST/SGOT) 11, Alanine Aminotransferase (ALT/SGPT) 11, Alkaline Phosphatase 71, Total Protein 6.2L, Albumin 3.3 Assessment/Plan Assessment TBI with weakness and contractures Suprapubic cath osteo of rt foot on antibiotics UTI treated Seizure disorder controlled on meds HTN controlled Plan Continue PT/OT/ST TEam Conference tomorrow 11-29-16 Family training BEAU MA MD Nov 28, 2016 21:31
[2016-11-29] MEDS: AMPICILLIN IV SCH ×4 (03:01→21:24)
[2016-11-29] MEDS: NS IV SCH ×4 (03:01→21:24)
[2016-11-29] MEDS: ONDANSETRON 4 MG (ZOFRAN) ORAL DISSOLVE TAB PO PRN (03:53)
[2016-11-29 03:59] VITALS: BP 140/90
[2016-11-29 05:33] VITALS: BP 120/71
[2016-11-29] MEDS: MULTIVIT W/MINERALS TAB (THERAGRAN M) PO SCH (06:06)
[2016-11-29] MEDS: PANTOPRAZOLE 40 MG (PROTONIX) TAB PO SCH (06:06)
[2016-11-29] MEDS: POLYETHYLENE GLYCOL 17 GM (MIRALAX) PACK PO SCH (07:59)
[2016-11-29] MEDS: RIVAROXABAN 20 MG TABLET (XARELTO) PO SCH (07:59)
[2016-11-29] MEDS: DOCUSATE SODIUM 100 MG (COLACE) CAP PO SCH ×2 (07:59→21:23)
[2016-11-29] MEDS: GABAPENTIN 300 MG (NEURONTIN) CAP PO SCH ×3 (07:59→21:24)
[2016-11-29] MEDS: LEVETIRACETAM 500 MG (KEPPRA) TAB PO SCH ×2 (07:59→21:23)
[2016-11-29] MEDS: LACTOBACILLUS Acidoph/Bulgar (LACTINEX/FLORANEX) TAB PO SCH (08:00)
[2016-11-29] MEDS: ALFUZOSIN HCL 10 MG TAB (UROXATRAL) PO SCH (08:00)
[2016-11-29] MEDS: BACLOFEN 10 MG (LIORESAL) TAB PO SCH ×3 (08:00→21:24)
[2016-11-29] MEDS: LORATADINE (CLARITIN) 10 MG TAB PO PRN (08:00)
--- NOTE | 2016-11-29 08:30 | Progress Note (SOAP) ---
Subjective Time Seen by Provider: 08:25 Subjective/Events-last exam patient seen 2 physicians yesterday out of the hospital and he states they said he is doing good.. TBI. Suprapubic catheter. UTI. Seizure disorder. Patient talking better today. Patient awake Objective Exam Vital Signs Date Time Temp Pulse Resp B/P (MAP) Pulse Ox O2 Delivery O2 Flow Rate FiO2 11/29/16 05:33 97.9 86 16 120/71 92 Room Air 11/29/16 03:59 99.0 101 16 140/90 94 Room Air 11/28/16 21:00 Room Air 11/28/16 19:05 Room Air 11/28/16 19:00 96.6 78 16 127/77 94 Room Air Capillary Refill : General Appearance: No Apparent Distress HEENT: Normal ENT Inspection Neck: Normal Inspection Respiratory: Normal Breath Sounds, No Accessory Muscle Use, No Respiratory Distress Cardiovascular: Regular Rate, Rhythm, No Murmur Assessment/Plan Assessment/Plan Assess & Plan/Chief Complaint TBI. Osteomyelitis. Fractures. Patient feeling better today. . . Patient having blood in the urine to see urologist today. 11/27/16. TBI. Fractures. Patient voicing no complaints today. . 11/29/16. Osteomyelitis. Fractures. TBI. Patient more alert today. Patient speaking better Clinical Quality Measures DVT/VTE Risk/Contraindication: Risk Factor Score Per Nursin RFS Level Per Nursing on Admit: 3=High JOON WALTER DO Nov 29, 2016 08:30
[2016-11-29] MEDS: OXYBUTYNIN 10 MG PO SCH ×3 (09:24→21:24)
--- NOTE | 2016-11-29 09:56 | Speech Therapy Daily Note ---
Speech Daily Progress Note Subjective Date Seen by Provider: Nov 29, 2016 Time Seen by Provider: 08:45 The patient was laying in bed upon entrance. The patient greeted the clinician and was agreeable to participation in dysphagia and speech therapy on this date. Objective To note: The patient required maximum, consistent verbal cueing and encouragement for limited participation in the speech pathology session. The patient consistently closed eyes and shook head, "no" when requested to perform oral motor and oropharyngeal strengthening exercises. Oral Motor Exercises: Oral motor (labial and lingual) exercises were continued on this date with limited participation and accuracy. The patient attempted lingual protrusion and lateralization, however, did not complete ten repetitions of each exercise regardless of maximum clinician prompting. Oropharyngeal Strengthening Exercises: Swallowing exercises were continued on this date. The clinician attempted an effortful swallow, base of tongue retraction, and adductor exercises. The patient performed limited repetitions of exercises (effortful swallow), however, continuously closed eyes and faced away from the clinician. Assessment Assessment Current Status: Poor Progress Treatment Plan Continue Plan of Care Communication Comprehension: 3 Expression: 2 Social Cognition Social Interaction: 1 Problem Solvin Memory: 2 Speech Short Term Goals Short Term Goals Short Term Goals 1. The patient will complete a full cognitive evaluation with mild clinician verbal prompting. MET (11/23/16) 2. The patient will display 80% accuracy with structured word-finding tasks with mild clinician verbal prompting. 3. The patient will demonstrate 80% accuracy with sequencing of ADL tasks with minimal clinician verbal prompting. 4. The patient will complete structured deductive reasoning tasks with 80% accuracy and mild clinician cueing. 5. The patient will display 80% accuracy with oral motor exercises with mild clinician direct modeling. 6. The patient will demonstrate 80% accuracy with oral and lingual range of motion and strengthening exercises with mild clinician verbal cueing. Time Frame-STG: Three Weeks Speech Ncr Operator Goals Ncr Operator Goals 1. The patient will improve cognitive linguistic skills for increased function and safety with ADL's in the least restrictive setting. 2. The patient will tolerate the least restrictive diet without signs/symptoms of aspiration or laryngeal penetration. Time Frame: Four Weeks Speech-Plan Treatment Plan Speech Therapy Treatment Plan: Continue Plan of Care Continue skilled speech pathology services to target improved lingual and labial strength. Treatment Duration: Dec 27, 2016 Frequency: Modified Program (IRF) (Four to Five Treatment Sessions Per Week) Estimated Hrs Per Day: .5 hour per day Rehab Potential: Poor Safety Risks/Education Teaching Recipient: Patient Teaching Methods: Demonstration, Discussion Response to Teaching: Reinforcement Needed Education Topics Provided: Oropharyngeal Exercises, Oral Motor Exercises Time Speech Therapy Time In: 08:45 Speech Therapy Time Out: 09:15 Total Billed Time: 30 Billed Treatment Time 1, DYST 1, PHILLY CABRERA Nov 29, 2016 09:56
[2016-11-29] MEDS: HYDROcodone/APAP 5 MG/325 MG (LORTAB) TAB PO PRN (10:09)
--- NOTE | 2016-11-29 10:15 | Physical Therapy Daily Note ---
PT Daily Note-Current Subjective Patient in bed pre tx, will be co-treating with OT this morning. Appearance Patient in wheelchair in therapy gym post tx, finishing up with OT. Mental Status Patient Orientation: Person Attachments: Suprapubic Catheter, IV Transfers Functional [place] Measure 0=Not Assessed/NA 4=Minimal Assistance 1=Total Assistance 5=Supervision or Setup 2=Maximal Assistance 6=Modified [place] 3=Moderate Assistance 7=Complete IndependenceIRFPAI Quality Coding Scale 6 Independent with activity with or without an assistive device 5 Patient requires set up or clean up by helper. Patient completes activity by themselves 4 Supervision or touching assist (CGA). [place] provide cues , steadying assist 3 The helper provides less than half the effort to complete the activity 2 The helper provides more than half the effort to complete the activity 1 Dependent. The helper does all the effort to complete an activity 7 Patient refused to complete or attempt activity 9 The patient did not perform the activity before the current illness or injury 88 Not attempted due to Medical conditions or safety concerns Transfers (B, C, W/C) (FIM): 1 Scootin Rollin Bed to/from Chair: 1 zoey for transfers Weight Bearing Right Lower Extremity: Right Non Weight Bearing Treatments patient was dressed in bed first and had to roll many times to achieve that and to get sling underneath him, he was transferred to the wheelchair via zoey and then taken to the therapy gym for LE stretching Assessment Current Status: Poor Progress no change in mobility, patient has severe LE muscle contractures PT Short Term Goals Short Term Goals Time Frame: Nov 30, 2016 Transfers (B,C,W/C) (FIM): 2 PT Nursing Home Goals Straightening Press Operator Helper Goals PT Straightening Press Operator Helper Goals Time Frame: Dec 14, 2016 Transfers (B,C,W/C) (FIM): 2 Sit to Lying (QC): 2 Lying-Sitting on Side/Bed(QC): 2 Rollin Roll Left to Right (QC): 2 Chair/Mrl-hd-Rmugq Xfer(QC): 2 PT Plan Problem List Problem List: Activity Tolerance, Functional Strength, Safety, Balance, Transfer, Bed Mobility, ROM Treatment/Plan Treatment Plan: Continue Plan of Care Treatment Plan: Bed Mobility, Concurrent Therapy, Education, Functional Activity Juanpablo, Functional Strength, Group Therapy, Safety, Therapeutic Exercise , Transfers Treatment Duration: Dec 14, 2016 Frequency: At least 5 of 7 days/Wk (IRF) Estimated Hrs Per Day: 1.5 hours per day Patient and/or Family Agrees t: Yes Safety Risks/Education Patient Education: Transfer Techniques, Correct Positioning, Safety Issues Teaching Recipient: Patient Teaching Methods: Demonstration, Discussion Response to Teaching: Reinforcement Needed Time/GCodes Time In: 930 Time Out: 1015 Total Billed Treatment Time: 45 Total Billed Treatment 1 visit EX 15' FA 30' co-treated with OT for the whole 45', OT worked on dressing and UE stretching, PT worked on transfers, positioning, and LE stretching FREDDY TRIMBLE PT Nov 29, 2016 10:15
--- NOTE | 2016-11-29 10:43 | Occupational Ther Daily Note ---
OT Current Status-Daily Note Subjective Pt alert, lying in bed. Nrsg present in room. Pt agreed to therapy. Pt perseverated about being gentle, 'my stomach is sensitive', 'can I call my mom'. Mental Status/Objective Patient Orientation: Person, Place Functional [place] Measure 0=Not Assessed/NA 4=Minimal Assistance 1=Total Assistance 5=Supervision or Setup 2=Maximal Assistance 6=Modified [place] 3=Moderate Assistance 7=Complete [place] Attachments: IV, Suprapubic Catheter ADL-Treatment Pt was dressed in bed. Pt was able to lift R foot up off of bed to place pants over it then assist to lift and hold right leg and L LE to pull up legs. Then pt attempted to bridge while assist x2 to pull pants over hips, unable to complete this way. Pt then worked on rolling side to side to hike pants over hips and place zoey sling. Pt transferred with zoey from bed to w/c. Pt reached R UE out to don shirt then assist to complete rest of upper body dressing. Assist x2 to lean forward to pull shirt down in back. Pt then transported to therapy gym via w/c. Worked on stretching and massage to L UE to increase ROM. PROM increased with stretch and massage during treatment. After therapy, pt sitting in w/c in room with nrsg present. All needs met in room. Nrsg called pt's mother for pt to talk to after therapy. Functional [place] Measure 0=Not Assessed/NA 4=Minimal Assistance 1=Total Assistance 5=Supervision or Setup 2=Maximal Assistance 6=Modified [place] 3=Moderate Assistance 7=Complete IndependenceIRFPAI Quality Coding Scale 6 Independent with activity with or without an assistive device 5 Patient requires set up or clean up by helper. Patient completes activity by themselves 4 Supervision or touching assist (CGA). [place] provide cues , steadying assist 3 The helper provides less than half the effort to complete the activity 2 The helper provides more than half the effort to complete the activity 1 Dependent. The helper does all the effort to complete an activity 7 Patient refused to complete or attempt activity 9 The patient did not perform the activity before the current illness or injury 88 Not attempted due to Medical conditions or safety concerns Upper Body (FIM): 1 Upper Body Dressing (QC): 1 Lower Body Dressing (FIM): 1 Lower Body Dressing (QC): 1 OT Short Term Goals Short Term Goals Time Frame: Dec 06, 2016 Eating(FIM): 3 Grooming(FIM): 3 Bathing(FIM): 2 Upper Body Dressing(FIM): 2 Lower Body Dressing(FIM): 2 Toileting(FIM): 2 Transfers (B,C,W/C) (FIM): 2 Toilet/Commode Transfer(FIM): 2 Additional Short Term Goals: 1-Demonstrate ADL Tasks, 2-Verbalize Understanding , 3-ImproveStrength/Juanpablo 1=Demonstrate adherence to instructed precautions during ADL tasks. 2=Patient will verbalize/demonstrate understanding of assistive devices/ modifications for ADL. 3=Patient will improve strength/tolerance for activity to enable patient to perform ADL's. OT Furniture Sander Goals Furniture Sander Goals Time Frame: Dec 27, 2016 Eating (FIM): 4 Eating (QC): 4 Groomin Oral Hygiene (QC): 4 Bathing(FIM): 3 Shower/Bathe Self (QC): 3 Upper Body Dressing(FIM): 3 Upper Body Dressing (QC): 3 Lower Body Dressing(FIM): 3 Lower Body Dressing (QC): 3 On/Off Footwear (QC): 2 Toileting(FIM): 2 Toileting Hygiene (QC): 2 Transfers (B,C,W/C) (FIM): 2 Toilet/Commode Transfer(FIM): 2 Toilet/Commode Transfer (QC): 2 Shower Transfer(FIM): 2 Additional Goals: 1-Demonstrate ADL Tasks, 2-Verbalize Understanding, 3- ImproveStrength/Juanpablo 1=Demonstrate adherence to instructed precautions during ADL tasks. 2=Patient will verbalize/demonstrate understanding of assistive devices/ modifications for ADL. 3=Patient will improve strength/tolerance for activity to enable patient to perform ADL's. OT Education/Plan Discharge Recommendations Plan/Recommendations: Continue POC Treatment Plan/Plan of Care Patient would benefit from OT for education, treatment and training to promote independence in ADL's, mobility, safety and/or upper extremity function for ADL' s. Plan of Care: ADL Retraining, Caregiver Training, Cognitive Retraining, Functional Mobility, Group Exercise/Act as Ind, UE Funct Exercise/Act Treatment Duration: Dec 27, 2016 Frequency: At least 5 of 7 days/Wk (IRF) Estimated Hrs Per Day: 1.5 hours per day Agreement: Yes Rehab Potential: Poor Time/GCodes Start Time: 09:30 Stop Time: 10:30 Total Time Billed (hr/min): 60 Billed Treatment Time 1 visit-FA 4 (60 min) co-treat with PT [id number] individual treatment [id number] OT worked on UE stretching and dressing, PT worked on transfers, positioning, and LE stretching ZEKE CANNON Nov 29, 2016 10:43
[2016-11-29] MEDS: IBUPROFEN TABLET 200 MG TAB PO PRN (12:08)
--- NOTE | 2016-11-29 15:39 | Therapy Group Daily Note ---
Therapy Daily Group Note Patient Education Topic Other List Below (Memory strategies) Exercises LE Seated Exercise, UE Exercise Other/Notes Pt was transported to OT/PT group via w/c. Group consisted of introductions, socialization, UE/LE seated exercises, education on memory strategies and completing memory activity that incorporates strategies. Pt required assistance and cues to answer questions throughout group. Pt had eyes closed most of the time though would shake head yes or no or give thumbs up. With these actions pt did demonstrate that he was understanding some of what was going on with group. Pt would not contribute to conversations during group. Direct questions needed to be asked after getting his attention by saying his name. Pt was able to give an inspiration for the end of group question, 'family ' was his inspiration. After therapy, pt transferred back to bed using zoey lift. Mother present in room. All needs met in room. Start Time: 13:00 Stop Time: 14:20 Total Billed Treatment Time: 80 Total Billed Treatment 1-GRP ZEKE CANNON Nov 29, 2016 15:39
[2016-11-29 17:30] VITALS: BP 106/68
--- NOTE | 2016-11-29 18:12 | PM & R (SOAP) Progress Note ---
Subjective Time Seen by Provider: 08:15 Subjective/Events-last exam Patient was seen in his room this AM with ST Patient dependent for transfers Pain meds increased-Monitor for increased drowsiness or confusion Patient with multiple contractures making Ambulation a further goal to realistically achieve Therapies focusing on TRansfer training and Family training when appropriate with patients mother.Current meds reviewed Patient is to have followup with surgeon next week re osteomyelitis rx for rt foot-may need amputation Review of Systems General: Fatigue Musculoskeletal: foot pain Neurological: Weakness Objective Exam Last Set of Vital Signs Vital Signs Date Time Temp Pulse Resp B/P (MAP) Pulse Ox O2 Delivery O2 Flow Rate FiO2 11/29/16 13:00 86 11/29/16 08:41 92 Room Air 11/29/16 05:33 97.9 16 120/71 Capillary Refill : I&O Intake and Output 11/30/16 00:00 Intake Total 400 ml Output Total 350 ml Balance 50 ml Intake Oral 300 ml IV Total 100 ml Output Urine Total 350 ml General: Cooperative, No Acute Distress HEENT: Mucous Memb Moist/[place] Neck: Supple, No JVD Lungs: Clear to Auscultation Heart: Regular Rate Abdomen: Normal Bowel Sounds, Soft, No Tenderness, Other (Suprapubic catheter in place) Extremities: Other (Plus contractures and rt ankle dressed) Neuro: Other (WEakness and contractures . lower limbs then uppers) Results Lab Laboratory Tests 11/27/16 05:18: White Blood Count 5.7, Red Blood Count 3.92L, Hemoglobin 11.7L, Hematocrit 37L, Mean Corpuscular Volume 95, Mean Corpuscular Hemoglobin 30, Mean Corpuscular Hemoglobin Concent 31L, Red Cell Distribution Width 12.8, Platelet Count 208, Mean Platelet Volume 10.2, Neutrophils (%) (Auto) 48, Lymphocytes (%) (Auto) 41 , Monocytes (%) (Auto) 9, Eosinophils (%) (Auto) 2, Basophils (%) (Auto) 1, Neutrophils # (Auto) 2.7, Lymphocytes # (Auto) 2.3, Monocytes # (Auto) 0.5, Eosinophils # (Auto) 0.1, Basophils # (Auto) 0.0, Erythrocyte Sedimentation Rate 10, Sodium Level 144, Potassium Level 3.4L, Chloride Level 109H, Carbon Dioxide Level 26, Anion Gap 9, Blood Urea Nitrogen 9, Creatinine 0.71, Estimat Glomerular Filtration Rate > 60, BUN/Creatinine Ratio 13, Glucose Level 87, Calcium Level 8.4L, Total Bilirubin 0.2, Aspartate Amino Transf (AST/SGOT) 11, Alanine Aminotransferase (ALT/SGPT) 11, Alkaline Phosphatase 71, Total Protein 6.2L, Albumin 3.3 Assessment/Plan Assessment TBI with weakness and contractures Suprapubic cath osteo of rt foot on antibiotics UTI treated Seizure disorder controlled on meds HTN controlled Plan Continue PT/OT/ST Family training Team Conference held earlier today-See report for full functional update and POC and BEAU TAYLOR MD Nov 29, 2016 18:12
[2016-11-30] MEDS: NS IV SCH ×4 (03:04→20:45)
[2016-11-30] MEDS: AMPICILLIN IV SCH ×4 (03:04→20:45)
[2016-11-30 06:00] VITALS: BP 131/76
[2016-11-30] MEDS: PANTOPRAZOLE 40 MG (PROTONIX) TAB PO SCH (06:18)
[2016-11-30] MEDS: MULTIVIT W/MINERALS TAB (THERAGRAN M) PO SCH (06:18)
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
[2016-11-30] MEDS: LEVETIRACETAM 500 MG (KEPPRA) TAB PO SCH ×2 (08:27→20:45)
[2016-11-30] MEDS: POLYETHYLENE GLYCOL 17 GM (MIRALAX) PACK PO SCH (08:27)
[2016-11-30] MEDS: ALFUZOSIN HCL 10 MG TAB (UROXATRAL) PO SCH (08:27)
[2016-11-30] MEDS: LACTOBACILLUS Acidoph/Bulgar (LACTINEX/FLORANEX) TAB PO SCH (08:27)
[2016-11-30] MEDS: DOCUSATE SODIUM 100 MG (COLACE) CAP PO SCH ×2 (08:27→20:47)
[2016-11-30] MEDS: RIVAROXABAN 20 MG TABLET (XARELTO) PO SCH (08:28)
[2016-11-30] MEDS: OXYBUTYNIN 10 MG PO SCH ×3 (08:28→20:48)
[2016-11-30] MEDS: GABAPENTIN 300 MG (NEURONTIN) CAP PO SCH ×3 (08:28→20:45)
[2016-11-30] MEDS: BACLOFEN 10 MG (LIORESAL) TAB PO SCH ×3 (08:28→20:45)
[2016-11-30] MEDS: LORATADINE (CLARITIN) 10 MG TAB PO PRN (08:28)
[2016-11-30 09:07] LABS: ANION GAP 6 MMOL/L (5-14); BLOOD UREA NITROGEN 8 MG/DL (7-18); BUN/CREATININE RATIO 7; CALCIUM 8.6 MG/DL (8.5-10.1); CARBON DIOXIDE 27 MMOL/L (21-32); CHLORIDE 107 MMOL/L (98-107); CREATININE SERUM 1.12 MG/DL (0.60-1.30); GFR ESTIMATED > 60; GLUCOSE 93 MG/DL (70-105); SODIUM 140 MMOL/L (135-145)
[2016-11-30] MEDS: HYDROcodone/APAP 5 MG/325 MG (LORTAB) TAB PO PRN ×2 (09:33→16:52)
--- NOTE | 2016-11-30 11:01 | Physical Therapy Daily Note ---
PT Daily Note-Current Subjective Patient in bed pre tx, has no complaints of pain while laying in bed. Will be co-treating with OT this morning. Appearance Patient in bed post tx with OT finishing up. Mental Status Patient Orientation: Person Attachments: Suprapubic Catheter Transfers Functional [place] Measure 0=Not Assessed/NA 4=Minimal Assistance 1=Total Assistance 5=Supervision or Setup 2=Maximal Assistance 6=Modified [place] 3=Moderate Assistance 7=Complete IndependenceIRFPAI Quality Coding Scale 6 Independent with activity with or without an assistive device 5 Patient requires set up or clean up by helper. Patient completes activity by themselves 4 Supervision or touching assist (CGA). [place] provide cues , steadying assist 3 The helper provides less than half the effort to complete the activity 2 The helper provides more than half the effort to complete the activity 1 Dependent. The helper does all the effort to complete an activity 7 Patient refused to complete or attempt activity 9 The patient did not perform the activity before the current illness or injury 88 Not attempted due to Medical conditions or safety concerns Transfers (B, C, W/C) (FIM): 1 Weight Bearing Right Lower Extremity: Right Non Weight Bearing Treatments Co-treating with OT. Patient was first undressed and zoey sling placed underneath him, he had to roll many times to accomplish this. He was transported to his wheelchair via zoey and taken to shower room and placed in shower chair via zoey. OT bathed patient while PT worked on sitting balance and positioning. Patient was then placed back into his wheelchair and back into bed. He was then dressed. Patient has severe knee and arm contractures. Assessment Current Status: Poor Progress no change in mobility PT Short Term Goals Short Term Goals Time Frame: Nov 30, 2016 Transfers (B,C,W/C) (FIM): 2 PT Half-Way Goals Half-Way Goals PT Half-Way Goals Time Frame: Dec 14, 2016 Transfers (B,C,W/C) (FIM): 2 Sit to Lying (QC): 2 Lying-Sitting on Side/Bed(QC): 2 Rollin Roll Left to Right (QC): 2 Chair/Gke-sa-[place] Xfer(QC): 2 PT Plan Problem List Problem List: Activity Tolerance, Functional Strength, Safety, Balance, Gait, Transfer, Bed Mobility, ROM Treatment/Plan Treatment Plan: Continue Plan of Care Treatment Plan: Bed Mobility, Concurrent Therapy, Education, Functional Activity Juanpablo, Functional Strength, Group Therapy, Safety, Therapeutic Exercise , Transfers Treatment Duration: Dec 14, 2016 Frequency: At least 5 of 7 days/Wk (IRF) Estimated Hrs Per Day: 1.5 hours per day Patient and/or Family Agrees t: Yes Safety Risks/Education Patient Education: Transfer Techniques, Correct Positioning, W/C Management, Safety Issues Teaching Recipient: Patient Teaching Methods: Demonstration, Discussion Response to Teaching: Reinforcement Needed Time/GCodes Time In: 1015 Time Out: 1100 Total Billed Treatment Time: 45 Total Billed Treatment 1 visit FA 45' co-treated with OT for the whole 45 min FREDDY TRIMBLE PT Nov 30, 2016 11:01
--- NOTE | 2016-11-30 12:04 | PM & R (SOAP) Progress Note ---
Subjective Time Seen by Provider: 09:15 Subjective/Events-last exam Patient was seen in his room this AM requesting pain pill Patient spasms in rt arm while resting in bed Patient dependent for transfers Pateint with significant contractures throughout all 4 limbs Patient had shower in shower room with PT/OT today Discussed case with RN and SW Objective Exam Last Set of Vital Signs Vital Signs Date Time Temp Pulse Resp B/P (MAP) Pulse Ox O2 Delivery O2 Flow Rate FiO2 11/30/16 09:00 Room Air 11/30/16 08:20 79 11/30/16 06:00 99.2 16 131/76 94 Capillary Refill : I&O Intake and Output 12/01/16 00:00 Intake Total 200 ml Output Total 750 ml Balance -550 ml Intake Oral 0 ml IV Total 200 ml Output Urine Total 750 ml General: Cooperative, No Acute Distress HEENT: Mucous Memb Moist/[place] Neck: Supple, No JVD Lungs: Clear to Auscultation Heart: Regular Rate Abdomen: Normal Bowel Sounds, Soft, No Tenderness, Other (Suprapubic catheter in place) Extremities: Other (Plus contractures and rt ankle dressed) Neuro: Other (WEakness and contractures . lower limbs then uppers) Results Lab Laboratory Tests 11/30/16 08:40: Sodium Level 140, Potassium Level 4.0, Chloride Level 107, Carbon Dioxide Level 27, Anion Gap 6, Blood Urea Nitrogen 8, Creatinine 1.12, Estimat Glomerular Filtration Rate > 60, BUN/Creatinine Ratio 7, Glucose Level 93, Calcium Level 8.6 Assessment/Plan Assessment TBI with weakness and contractures as well as spasticity Suprapubic cath osteo of rt foot on antibiotics UTI treated Seizure disorder controlled on meds HTN controlled Chronic pain due to # 1 Plan Continue PT/OT/ST Family training Team Conference held yesterday-See report for full functional update and POC and ELOS Pain Management-Current meds reviewed. BEAU MA MD Nov 30, 2016 12:04
--- NOTE | 2016-11-30 12:24 | Occupational Ther Daily Note ---
OT Current Status-Daily Note Subjective Pt asleep, lying in bed. Pt's aunt was in the room. Pt declined to take shower today, therapy and aunt encouraged pt to take one. Pt then agreed. Pt c /o pain in head, stomach felt bad and clogged nose. Reported to nrsg. Mental Status/Objective Patient Orientation: Person, Unable to Assess Functional [place] Measure 0=Not Assessed/NA 4=Minimal Assistance 1=Total Assistance 5=Supervision or Setup 2=Maximal Assistance 6=Modified [place] 3=Moderate Assistance 7=Complete [place] Attachments: IV, Suprapubic Catheter, Telemetry ADL-Treatment OT/PT co-treated today. PT worked on transfers and sitting balance, OT worked on bathing, dressing and PROM/massage to L UE. Pt was able to reach R UE/LE over body to assist in rolling toward L side. Pt held onto bedrail to keep self there. Dependent with donning/doffing clothing, will lift R UE or R LE to place in sleeve or pant leg. Dressing lower body in bed and upper body when sitting up in w/c. Pt transferred into w/c with zoey lift. Transported pt to large shower room via w/c. Transferred pt from w/c to shower chair with zoey lift. Pt was able to sustain better sitting position in shower chair with support from lift. Pt was able to reach face with R hand to dry with towel. Pt then taken back to room and transferred into bed to complete dressing. Massage and stretching to L hand and elbow. Pt demonstrated increase in PROM after stretching and massage. Pt c/o pain with stretching though tended to relax when attention was redirected. After therapy, pt lying in bed with call light/phone in reach. All needs met in room. Functional [place] Measure 0=Not Assessed/NA 4=Minimal Assistance 1=Total Assistance 5=Supervision or Setup 2=Maximal Assistance 6=Modified [place] 3=Moderate Assistance 7=Complete IndependenceIRFPAI Quality Coding Scale 6 Independent with activity with or without an assistive device 5 Patient requires set up or clean up by helper. Patient completes activity by themselves 4 Supervision or touching assist (CGA). [place] provide cues , steadying assist 3 The helper provides less than half the effort to complete the activity 2 The helper provides more than half the effort to complete the activity 1 Dependent. The helper does all the effort to complete an activity 7 Patient refused to complete or attempt activity 9 The patient did not perform the activity before the current illness or injury 88 Not attempted due to Medical conditions or safety concerns Bathing (FIM): 1 Shower/Bathe Self (QC): 1 Upper Body (FIM): 1 Upper Body Dressing (QC): 1 Lower Body Dressing (FIM): 1 Lower Body Dressing (QC): 1 On/Off Footwear (QC): 1 Toileting (FIM): 1 Toileting Hygiene (QC): 1 Transfers (B, C, W/C) (FIM): 1 Toilet/Commode Transfer (FIM): 1 Toilet Transfer (QC): 1 Shower Transfer(FIM): 1 OT Short Term Goals Short Term Goals Time Frame: Dec 06, 2016 Eating(FIM): 3 Grooming(FIM): 3 Bathing(FIM): 2 Upper Body Dressing(FIM): 2 Lower Body Dressing(FIM): 2 Toileting(FIM): 2 Transfers (B,C,W/C) (FIM): 2 Toilet/Commode Transfer(FIM): 2 Additional Short Term Goals: 1-Demonstrate ADL Tasks, 2-Verbalize Understanding , 3-ImproveStrength/Juanpablo 1=Demonstrate adherence to instructed precautions during ADL tasks. 2=Patient will verbalize/demonstrate understanding of assistive devices/ modifications for ADL. 3=Patient will improve strength/tolerance for activity to enable patient to perform ADL's. OT Big Data Admin Goals Big Data Admin Goals Time Frame: Dec 27, 2016 Eating (FIM): 4 Eating (QC): 4 Groomin Oral Hygiene (QC): 4 Bathing(FIM): 3 Shower/Bathe Self (QC): 3 Upper Body Dressing(FIM): 3 Upper Body Dressing (QC): 3 Lower Body Dressing(FIM): 3 Lower Body Dressing (QC): 3 On/Off Footwear (QC): 2 Toileting(FIM): 2 Toileting Hygiene (QC): 2 Transfers (B,C,W/C) (FIM): 2 Toilet/Commode Transfer(FIM): 2 Toilet/Commode Transfer (QC): 2 Shower Transfer(FIM): 2 Additional Goals: 1-Demonstrate ADL Tasks, 2-Verbalize Understanding, 3- ImproveStrength/Juanpablo 1=Demonstrate adherence to instructed precautions during ADL tasks. 2=Patient will verbalize/demonstrate understanding of assistive devices/ modifications for ADL. 3=Patient will improve strength/tolerance for activity to enable patient to perform ADL's. OT Education/Plan Discharge Recommendations Plan/Recommendations: Continue POC Treatment Plan/Plan of Care Patient would benefit from OT for education, treatment and training to promote independence in ADL's, mobility, safety and/or upper extremity function for ADL' s. Plan of Care: ADL Retraining, Caregiver Training, Cognitive Retraining, Functional Mobility, Group Exercise/Act as Ind, UE Funct Exercise/Act Treatment Duration: Dec 27, 2016 Frequency: At least 5 of 7 days/Wk (IRF) Estimated Hrs Per Day: 1.5 hours per day Agreement: Yes Rehab Potential: Poor Time/GCodes Start Time: 10:06 Stop Time: 11:36 Total Time Billed (hr/min): 90 Billed Treatment Time 1 visit-ADL 5 (70 min) FA 1 (20 min) Co-treat with PT 45 min ([id number]) individual [id number] then [id number] (45 min) ZEKE CANNON Nov 30, 2016 12:24
--- NOTE | 2016-11-30 13:16 | Physical Therapy Daily Note ---
PT Daily Note-Current Subjective "That hurts, that hurts really bad"--repeats this throughout treatment session. Requests to lie down immediately after being sat up at EOB. Transfers Functional [place] Measure 0=Not Assessed/NA 4=Minimal Assistance 1=Total Assistance 5=Supervision or Setup 2=Maximal Assistance 6=Modified [place] 3=Moderate Assistance 7=Complete IndependenceIRFPAI Quality Coding Scale 6 Independent with activity with or without an assistive device 5 Patient requires set up or clean up by helper. Patient completes activity by themselves 4 Supervision or touching assist (CGA). [place] provide cues , steadying assist 3 The helper provides less than half the effort to complete the activity 2 The helper provides more than half the effort to complete the activity 1 Dependent. The helper does all the effort to complete an activity 7 Patient refused to complete or attempt activity 9 The patient did not perform the activity before the current illness or injury 88 Not attempted due to Medical conditions or safety concerns Weight Bearing Right Lower Extremity: Right Non Weight Bearing Treatments Gentle passive and prolonged stretching B LE's primarily for hip and knee extension; worked on trunk rotation to the right and gently B UE stretching. Transferred pt to sit EOB with dep assist requiring 2 caregivers. Sat EOB approx 5 minutes, dep of 2 caregivers. Unable to assist or participate in seated EOB balance or activities, he is dependent. Pt in bed post treatment with heels protected and pillow between his knees. Assessment Pt resistant to stretching and has tone that elicits with stretch. With long gently stretch, some give is noted but it is limited. Post treatment, pt pulls knees up and his trunk sways left. Pt pleasant but has difficulty understanding the need to participate with therapy services and frequently requests to stop stretching or to return to supine position. PT Short Term Goals Short Term Goals Time Frame: Nov 30, 2016 Transfers (B,C,W/C) (FIM): 2 PT Dehydration Unit Operator Goals Fpc Goals PT Fpc Goals Time Frame: Dec 14, 2016 Transfers (B,C,W/C) (FIM): 2 Sit to Lying (QC): 2 Lying-Sitting on Side/Bed(QC): 2 Rollin Roll Left to Right (QC): 2 Chair/Ceo-xc-Bfzrq Xfer(QC): 2 PT Plan Problem List Problem List: Functional Strength, Balance, Transfer, Bed Mobility, ROM Treatment/Plan Treatment Plan: Continue Plan of Care Treatment Plan: Bed Mobility, Concurrent Therapy, Education, Functional Activity Juanpablo, Functional Strength, Group Therapy, Safety, Therapeutic Exercise , Transfers Treatment Duration: Dec 14, 2016 Frequency: At least 5 of 7 days/Wk (IRF) Estimated Hrs Per Day: 1.5 hours per day Patient and/or Family Agrees t: Yes Safety Risks/Education Spoke with patient throughout treatment with encouragement and reasons why PT is important. He continue to perseverate on hurting or not wanting to sit up. Time/GCodes Time In: 1220 Time Out: 1307 Total Billed Treatment Time: 47 Total Billed Treatment visit FA 47 ZEKE DUMONT PT Nov 30, 2016 13:16
[2016-11-30] MEDS: IBUPROFEN TABLET 200 MG TAB PO PRN (13:45)
[2016-11-30] MEDS: MILK OF MAGNESIA 400 MG/5 ML 30 ML UDC PO PRN (16:52)
[2016-11-30 18:58] VITALS: BP 118/78
[2016-11-30] MEDS: CATHETER FLUSH 10 ML SYR IV PRN (20:46)
[2016-12-01] MEDS: NS IV SCH ×4 (02:06→20:49)
[2016-12-01] MEDS: AMPICILLIN IV SCH ×4 (02:06→20:49)
[2016-12-01] MEDS: CATHETER FLUSH 10 ML SYR IV PRN (02:07)
[2016-12-01 05:00] VITALS: BP 118/75
[2016-12-01] MEDS: MULTIVIT W/MINERALS TAB (THERAGRAN M) PO SCH ×2 (06:50→06:52)
[2016-12-01] MEDS: PANTOPRAZOLE 40 MG (PROTONIX) TAB PO SCH ×2 (06:50→06:52)
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
[2016-12-01] MEDS: LORATADINE (CLARITIN) 10 MG TAB PO PRN (08:49)
[2016-12-01] MEDS: POLYETHYLENE GLYCOL 17 GM (MIRALAX) PACK PO SCH (08:49)
[2016-12-01] MEDS: LACTOBACILLUS Acidoph/Bulgar (LACTINEX/FLORANEX) TAB PO SCH (08:49)
[2016-12-01] MEDS: GABAPENTIN 300 MG (NEURONTIN) CAP PO SCH ×3 (08:49→20:37)
[2016-12-01] MEDS: ALFUZOSIN HCL 10 MG TAB (UROXATRAL) PO SCH (08:49)
[2016-12-01] MEDS: OXYBUTYNIN 10 MG PO SCH ×3 (08:49→20:37)
[2016-12-01] MEDS: RIVAROXABAN 20 MG TABLET (XARELTO) PO SCH (08:49)
[2016-12-01] MEDS: LEVETIRACETAM 500 MG (KEPPRA) TAB PO SCH ×2 (08:49→20:37)
[2016-12-01] MEDS: DOCUSATE SODIUM 100 MG (COLACE) CAP PO SCH ×2 (08:49→20:37)
[2016-12-01] MEDS: BACLOFEN 10 MG (LIORESAL) TAB PO SCH ×3 (08:49→20:37)
--- NOTE | 2016-12-01 09:25 | PM & R (SOAP) Progress Note ---
Subjective Time Seen by Provider: 07:50 Subjective/Events-last exam Patient was seen in his room this AM Patient dependent for transfers Patient with increased pain with stretching with therapists Patient with significant contractures throughout Objective Exam Last Set of Vital Signs Vital Signs Date Time Temp Pulse Resp B/P (MAP) Pulse Ox O2 Delivery O2 Flow Rate FiO2 12/01/16 05:00 97.5 76 18 118/75 95 Room Air Capillary Refill : I&O Intake and Output 12/02/16 00:00 Intake Total 300 ml Output Total 350 ml Balance -50 ml Intake Oral 200 ml IV Total 100 ml Output Urine Total 350 ml General: Cooperative, No Acute Distress HEENT: Mucous Memb Moist/[place] Neck: Supple, No JVD Lungs: Clear to Auscultation Heart: Regular Rate Abdomen: Normal Bowel Sounds, Soft, No Tenderness, Other (Suprapubic catheter in place) Extremities: Other (Plus contractures and rt ankle dressed) Neuro: Other (WEakness and contractures . lower limbs then uppers) Results Lab Laboratory Tests 11/30/16 08:40: Sodium Level 140, Potassium Level 4.0, Chloride Level 107, Carbon Dioxide Level 27, Anion Gap 6, Blood Urea Nitrogen 8, Creatinine 1.12, Estimat Glomerular Filtration Rate > 60, BUN/Creatinine Ratio 7, Glucose Level 93, Calcium Level 8.6 Assessment/Plan Assessment TBI with weakness and contractures as well as spasticity Suprapubic cath osteo of rt foot on antibiotics UTI treated Seizure disorder controlled on meds HTN controlled Chronic pain due to # 1 Plan Continue PT/OT/ST Family training Team Conference held 11-29-16-See report for full functional update and POC and ELOS Pain Management-Current meds reviewed. Patient is scheduled to see surgeon re rt foot osteomyelitis later this month BEAU MA MD Dec 01, 2016 09:25
--- NOTE | 2016-12-01 11:05 | Physical Therapy Daily Note ---
PT Daily Note-Current Subjective Patient in bed pre tx, no complaints of pain, will be co-treating with OT this morning. Appearance Patient in wheelchair post tx finishing up with OT. Mental Status Patient Orientation: Normal For Age Transfers Functional [place] Measure 0=Not Assessed/NA 4=Minimal Assistance 1=Total Assistance 5=Supervision or Setup 2=Maximal Assistance 6=Modified [place] 3=Moderate Assistance 7=Complete IndependenceIRFPAI Quality Coding Scale 6 Independent with activity with or without an assistive device 5 Patient requires set up or clean up by helper. Patient completes activity by themselves 4 Supervision or touching assist (CGA). [place] provide cues , steadying assist 3 The helper provides less than half the effort to complete the activity 2 The helper provides more than half the effort to complete the activity 1 Dependent. The helper does all the effort to complete an activity 7 Patient refused to complete or attempt activity 9 The patient did not perform the activity before the current illness or injury 88 Not attempted due to Medical conditions or safety concerns Transfers (B, C, W/C) (FIM): 1 Scootin Rollin Supine to/from Sit: 1 Bed to/from Chair: 1 zoey for transfers Weight Bearing Right Lower Extremity: Right Non Weight Bearing Treatments Patient was hoyered from bed to wheelchair and taken to the therapy gym. He was then hoyered to the therapy mat and put in a seated position where OT worked on sitting balance and PT worked on positioning and assisted with sitting balance, he worked on leaning from side to side and leaning back onto a wedge and then coming back up. He was then put back into his wheelchair and OT worked on upper extremity ROM and PT worked on LE ROM. Assessment Current Status: Poor Progress No change in mobility. Severe knee contractures. PT Short Term Goals Short Term Goals Time Frame: Nov 30, 2016 Transfers (B,C,W/C) (FIM): 2 PT Alf Goals Center Line Cutter Operator Goals PT Center Line Cutter Operator Goals Time Frame: Dec 14, 2016 Transfers (B,C,W/C) (FIM): 2 Sit to Lying (QC): 2 Lying-Sitting on Side/Bed(QC): 2 Rollin Roll Left to Right (QC): 2 Chair/Dhl-qn-Lvtil Xfer(QC): 2 PT Plan Problem List Problem List: Activity Tolerance, Functional Strength, Safety, Balance, Transfer, Bed Mobility, ROM Treatment/Plan Treatment Plan: Continue Plan of Care Treatment Plan: Bed Mobility, Concurrent Therapy, Education, Functional Activity Juanpablo, Functional Strength, Group Therapy, Safety, Therapeutic Exercise , Transfers Treatment Duration: Dec 14, 2016 Frequency: At least 5 of 7 days/Wk (IRF) Estimated Hrs Per Day: 1.5 hours per day Patient and/or Family Agrees t: Yes Safety Risks/Education Patient Education: Transfer Techniques, Correct Positioning, Safety Issues Teaching Recipient: Patient Teaching Methods: Demonstration, Discussion Response to Teaching: Reinforcement Needed Time/GCodes Time In: 1015 Time Out: 1100 Total Billed Treatment Time: 45 Total Billed Treatment 1 visit EX 15' FA 30' Co-treated with OT for the whole 45 min FREDDY TRIMBLE PT Dec 01, 2016 11:05
--- NOTE | 2016-12-01 11:16 | Speech Therapy Daily Note ---
Speech Daily Progress Note Subjective Date Seen by Provider: Dec 01, 2016 Time Seen by Provider: 08:25 The patient was laying in bed upon entrance. The patient greeted the clinician and was agreeable to participation in dysphagia and speech therapy on this date. Objective To note: The patient required maximum, consistent verbal cueing and encouragement for limited participation in the speech pathology session. The patient consistently closed eyes and shook head, "no" when requested to perform oral motor and oropharyngeal strengthening exercises. Additionally, the patient stated ,"I don't want to." The patient consistently perseverated on his want to see his mother and the clinician consistently reminded the patient she would arrive around 10:00. The patient's participation throughout therapy has not improved. Oral Motor Exercises: Oral motor (labial and lingual) exercises were continued on this date with limited participation and accuracy. The patient attempted lingual protrusion and lateralization, however, did not complete ten repetitions of each exercise regardless of maximum clinician prompting. Oropharyngeal Strengthening Exercises: Swallowing exercises were continued on this date. The clinician attempted an effortful swallow, base of tongue retraction, and adductor exercises. The patient performed limited repetitions of exercises (effortful swallow), however, continuously closed eyes and faced away from the clinician. Assessment Assessment Current Status: Poor Progress Treatment Plan Continue Plan of Care Communication Comprehension: 3 Expression: 2 Social Cognition Social Interaction: 1 Problem Solvin Memory: 2 Speech Short Term Goals Short Term Goals Short Term Goals 1. The patient will complete a full cognitive evaluation with mild clinician verbal prompting. MET (11/23/16) 2. The patient will display 80% accuracy with structured word-finding tasks with mild clinician verbal prompting. 3. The patient will demonstrate 80% accuracy with sequencing of ADL tasks with minimal clinician verbal prompting. 4. The patient will complete structured deductive reasoning tasks with 80% accuracy and mild clinician cueing. 5. The patient will display 80% accuracy with oral motor exercises with mild clinician direct modeling. 6. The patient will demonstrate 80% accuracy with oral and lingual range of motion and strengthening exercises with mild clinician verbal cueing. Time Frame-STG: Three Weeks Speech Canoe Inspector Goals Halfway Goals 1. The patient will improve cognitive linguistic skills for increased function and safety with ADL's in the least restrictive setting. 2. The patient will tolerate the least restrictive diet without signs/symptoms of aspiration or laryngeal penetration. Time Frame: Four Weeks Speech-Plan Treatment Plan Speech Therapy Treatment Plan: Continue Plan of Care Continue skilled speech pathology in attempts to improve oropharyngeal swallowing and oral lingual range of motion. Treatment Duration: Dec 27, 2016 Frequency: Modified Program (IRF) (Four to Five Treatment Sessions Per Week) Estimated Hrs Per Day: .5 hour per day Rehab Potential: Poor Safety Risks/Education Teaching Recipient: Patient Teaching Methods: Demonstration, Discussion Response to Teaching: Unable to Return Demonstration, Reinforcement Needed Education Topics Provided: Oral Motor Exercises, Oropharyngeal Exercises Time Speech Therapy Time In: 08:25 Speech Therapy Time Out: 08:56 Total Billed Time: 31 Billed Treatment Time 1, SLTS 1, DYST (15 Minutes SLTS, 16 Minutes DYST) PHILLY HAZEL Dec 01, 2016 11:16
--- NOTE | 2016-12-01 12:36 | Occupational Ther Daily Note ---
OT Current Status-Daily Note Subjective Pt lying in bed with eyes closed, but answering questions. Mother present in room. Pt agreed to therapy. Did not c/o pain at this time. Mental Status/Objective Patient Orientation: Person, Unable to Assess Functional [place] Measure 0=Not Assessed/NA 4=Minimal Assistance 1=Total Assistance 5=Supervision or Setup 2=Maximal Assistance 6=Modified [place] 3=Moderate Assistance 7=Complete [place] Attachments: IV, Suprapubic Catheter, Telemetry ADL-Treatment Co-treatment with OT/PT. PT working on sitting balance, transfers and B LE stretching, OT working on dressing, UE wt bearing during sitting and L UE stretching. Pt is able to move B LE's and R UE to straighten when asked. Pt is able to do this when initiating donning clothing. Pt assisted by bridging hips to hike pants over hips. Pt also will reach with R UE and move R LE to initiate rolling toward L side. Pt requires total assist to pull pants over feet and up legs and don shirt. Pt was transferred to w/c via zoey lift then transported to therapy gym and transferred with zoey lift to therapy mat. Pt required max A to go from supine to sitting up right with assist of upper body and assist with LE to position safely. Pt was able to lean side to side placing R knuckles on the mat for wt bearing. Pt then transferred back to chair to complete L UE stretch/massage to increase ROM of wrist and digits. After therapy, pt was transferred back to bed with zoey. Mother present in room. All needs met in room. Functional [place] Measure 0=Not Assessed/NA 4=Minimal Assistance 1=Total Assistance 5=Supervision or Setup 2=Maximal Assistance 6=Modified [place] 3=Moderate Assistance 7=Complete IndependenceIRFPAI Quality Coding Scale 6 Independent with activity with or without an assistive device 5 Patient requires set up or clean up by helper. Patient completes activity by themselves 4 Supervision or touching assist (CGA). [place] provide cues , steadying assist 3 The helper provides less than half the effort to complete the activity 2 The helper provides more than half the effort to complete the activity 1 Dependent. The helper does all the effort to complete an activity 7 Patient refused to complete or attempt activity 9 The patient did not perform the activity before the current illness or injury 88 Not attempted due to Medical conditions or safety concerns Upper Body (FIM): 1 Upper Body Dressing (QC): 1 Lower Body Dressing (FIM): 1 Lower Body Dressing (QC): 1 On/Off Footwear (QC): 1 OT Short Term Goals Short Term Goals Time Frame: Dec 06, 2016 Eating(FIM): 3 Grooming(FIM): 3 Bathing(FIM): 2 Upper Body Dressing(FIM): 2 Lower Body Dressing(FIM): 2 Toileting(FIM): 2 Transfers (B,C,W/C) (FIM): 2 Toilet/Commode Transfer(FIM): 2 Additional Short Term Goals: 1-Demonstrate ADL Tasks, 2-Verbalize Understanding , 3-ImproveStrength/Juanpablo 1=Demonstrate adherence to instructed precautions during ADL tasks. 2=Patient will verbalize/demonstrate understanding of assistive devices/ modifications for ADL. 3=Patient will improve strength/tolerance for activity to enable patient to perform ADL's. OT Skilled Nursing Goals Clinical Implementation Specialist Goals Time Frame: Dec 27, 2016 Eating (FIM): 4 Eating (QC): 4 Groomin Oral Hygiene (QC): 4 Bathing(FIM): 3 Shower/Bathe Self (QC): 3 Upper Body Dressing(FIM): 3 Upper Body Dressing (QC): 3 Lower Body Dressing(FIM): 3 Lower Body Dressing (QC): 3 On/Off Footwear (QC): 2 Toileting(FIM): 2 Toileting Hygiene (QC): 2 Transfers (B,C,W/C) (FIM): 2 Toilet/Commode Transfer(FIM): 2 Toilet/Commode Transfer (QC): 2 Shower Transfer(FIM): 2 Additional Goals: 1-Demonstrate ADL Tasks, 2-Verbalize Understanding, 3- ImproveStrength/Juanpablo 1=Demonstrate adherence to instructed precautions during ADL tasks. 2=Patient will verbalize/demonstrate understanding of assistive devices/ modifications for ADL. 3=Patient will improve strength/tolerance for activity to enable patient to perform ADL's. OT Education/Plan Discharge Recommendations Plan/Recommendations: Continue POC Treatment Plan/Plan of Care Patient would benefit from OT for education, treatment and training to promote independence in ADL's, mobility, safety and/or upper extremity function for ADL' s. Plan of Care: ADL Retraining, Caregiver Training, Cognitive Retraining, Functional Mobility, Group Exercise/Act as Ind, UE Funct Exercise/Act Treatment Duration: Dec 27, 2016 Frequency: At least 5 of 7 days/Wk (IRF) Estimated Hrs Per Day: 1.5 hours per day Agreement: Yes Rehab Potential: Poor Time/GCodes Start Time: 10:00 Stop Time: 11:05 Total Time Billed (hr/min): 65 Billed Treatment Time 1 visit-FA 4 (65 min) co-treat with PT [id number] (45 min) individual 1000- 1015 and [id number] (20 min) ZEKE CANNON Dec 01, 2016 12:36
[2016-12-01] MEDS: HYDROcodone/APAP 5 MG/325 MG (LORTAB) TAB PO PRN (14:25)
[2016-12-01] MEDS: BISACODYL 10 MG SUPP (DULCOLAX) PR PRN (14:25)
--- NOTE | 2016-12-01 16:03 | Therapy Group Daily Note ---
Therapy Daily Group Note Exercises LE Seated Exercise, UE Exercise Other/Notes Pt transported to [facility] for OT/PT group. Group consisted of introductions (name, place living, favorite game as a kid), socialization, UE/ LE seated exercises, activities that focus on core strength, dynamic sitting, fine motor with UE AROM, per discussions during activities and opening containers/packages. Pt was able to hold onto snack with R hand and eat by self. Pt was able to complete activities that were modified for him to be able to participate successfully. Pt did contribute to introductions, but did not engage in discussions. Pt was able to state what was going on appropriately. Pt required encouragement and [place] to complete seated exercises. After group pt requested to go back to bed. Transferred to bed with zoey lift. Visitors present in room. Start Time: 13:00 Stop Time: 14:30 Total Billed Treatment Time: 90 Total Billed Treatment 1-GRP ZEKE CANNON Dec 01, 2016 16:03
[2016-12-01 18:19] VITALS: BP 126/82
[2016-12-02] MEDS: AMPICILLIN IV SCH ×4 (03:40→20:11)
[2016-12-02] MEDS: NS IV SCH ×4 (03:40→20:11)
[2016-12-02 05:00] VITALS: BP 131/80
[2016-12-02] MEDS: ALFUZOSIN HCL 10 MG TAB (UROXATRAL) PO SCH (09:56)
[2016-12-02] MEDS: PANTOPRAZOLE 40 MG (PROTONIX) TAB PO SCH (09:56)
[2016-12-02] MEDS: DOCUSATE SODIUM 100 MG (COLACE) CAP PO SCH ×2 (09:56→20:08)
[2016-12-02] MEDS: LACTOBACILLUS Acidoph/Bulgar (LACTINEX/FLORANEX) TAB PO SCH (09:56)
[2016-12-02] MEDS: LORATADINE (CLARITIN) 10 MG TAB PO PRN (09:56)
[2016-12-02] MEDS: BACLOFEN 10 MG (LIORESAL) TAB PO SCH ×3 (09:56→20:08)
[2016-12-02] MEDS: LEVETIRACETAM 500 MG (KEPPRA) TAB PO SCH ×2 (09:56→20:08)
[2016-12-02] MEDS: RIVAROXABAN 20 MG TABLET (XARELTO) PO SCH (09:57)
[2016-12-02] MEDS: POLYETHYLENE GLYCOL 17 GM (MIRALAX) PACK PO SCH (09:57)
[2016-12-02] MEDS: MULTIVIT W/MINERALS TAB (THERAGRAN M) PO SCH (09:57)
[2016-12-02] MEDS: HYDROcodone/APAP 5 MG/325 MG (LORTAB) TAB PO PRN ×2 (09:57→17:16)
[2016-12-02] MEDS: OXYBUTYNIN 10 MG PO SCH ×3 (09:57→20:08)
[2016-12-02] MEDS: GABAPENTIN 300 MG (NEURONTIN) CAP PO SCH ×3 (09:57→20:08)
--- NOTE | 2016-12-02 12:04 | Physical Therapy Daily Note ---
PT Daily Note-Current Subjective Patient in bed pre tx, has no complaints of pain. Patient will be getting dressed (with nursing assist), into the wheelchair, and stretching of legs. Appearance Patient in wheelchair at bedside post tx with family in the room. Mental Status Patient Orientation: Person Attachments: Suprapubic Catheter Transfers Functional [place] Measure 0=Not Assessed/NA 4=Minimal Assistance 1=Total Assistance 5=Supervision or Setup 2=Maximal Assistance 6=Modified [place] 3=Moderate Assistance 7=Complete IndependenceIRFPAI Quality Coding Scale 6 Independent with activity with or without an assistive device 5 Patient requires set up or clean up by helper. Patient completes activity by themselves 4 Supervision or touching assist (CGA). [place] provide cues , steadying assist 3 The helper provides less than half the effort to complete the activity 2 The helper provides more than half the effort to complete the activity 1 Dependent. The helper does all the effort to complete an activity 7 Patient refused to complete or attempt activity 9 The patient did not perform the activity before the current illness or injury 88 Not attempted due to Medical conditions or safety concerns Transfers (B, C, W/C) (FIM): 1 Scootin Rollin Bed to/from Chair: 1 zoey for transfer Weight Bearing Right Lower Extremity: Right Non Weight Bearing Treatments Patient was rolled many times in bed to complete dressing and getting sling underneath him. He was then transferred to his wheelchair and hamstring and hip stretching was performed. Assessment Current Status: Poor Progress no change in mobility PT Short Term Goals Short Term Goals Time Frame: Nov 30, 2016 Transfers (B,C,W/C) (FIM): 2 PT Manufacturing Lab Technician Goals Halfway Goals PT Halfway Goals Time Frame: Dec 14, 2016 Transfers (B,C,W/C) (FIM): 2 Sit to Lying (QC): 2 Lying-Sitting on Side/Bed(QC): 2 Rollin Roll Left to Right (QC): 2 Chair/Wmr-rt-Vvebj Xfer(QC): 2 PT Plan Problem List Problem List: Activity Tolerance, Functional Strength, Safety, Balance, Transfer, Bed Mobility, ROM Treatment/Plan Treatment Plan: Continue Plan of Care Treatment Plan: Bed Mobility, Concurrent Therapy, Education, Functional Activity Juanpablo, Functional Strength, Group Therapy, Safety, Therapeutic Exercise , Transfers Treatment Duration: Dec 14, 2016 Frequency: At least 5 of 7 days/Wk (IRF) Estimated Hrs Per Day: 1.5 hours per day Patient and/or Family Agrees t: Yes Safety Risks/Education Patient Education: Transfer Techniques, Correct Positioning, Safety Issues Teaching Recipient: Patient Teaching Methods: Demonstration, Discussion Response to Teaching: Reinforcement Needed Time/GCodes Time In: 1135 Time Out: 1200 Total Billed Treatment Time: 25 Total Billed Treatment 1 visit FA 15' EX 10' FREDDY TRIMBLE PT Dec 02, 2016 12:04
[2016-12-02 17:10] VITALS: BP 124/84
[2016-12-03] MEDS: NS IV SCH ×4 (02:23→20:02)
[2016-12-03] MEDS: AMPICILLIN IV SCH ×4 (02:23→20:02)
[2016-12-03] MEDS: PANTOPRAZOLE 40 MG (PROTONIX) TAB PO SCH (06:12)
[2016-12-03] MEDS: MULTIVIT W/MINERALS TAB (THERAGRAN M) PO SCH (06:12)
[2016-12-03 06:24] VITALS: BP 115/71
[2016-12-03] MEDS: LACTOBACILLUS Acidoph/Bulgar (LACTINEX/FLORANEX) TAB PO SCH (09:05)
[2016-12-03] MEDS: ALFUZOSIN HCL 10 MG TAB (UROXATRAL) PO SCH (09:06)
[2016-12-03] MEDS: GABAPENTIN 300 MG (NEURONTIN) CAP PO SCH ×3 (09:06→20:02)
[2016-12-03] MEDS: LEVETIRACETAM 500 MG (KEPPRA) TAB PO SCH ×2 (09:06→20:03)
[2016-12-03] MEDS: RIVAROXABAN 20 MG TABLET (XARELTO) PO SCH (09:06)
[2016-12-03] MEDS: BACLOFEN 10 MG (LIORESAL) TAB PO SCH ×3 (09:06→20:03)
[2016-12-03] MEDS: POLYETHYLENE GLYCOL 17 GM (MIRALAX) PACK PO SCH (09:19)
[2016-12-03] MEDS: OXYBUTYNIN 10 MG PO SCH ×3 (09:19→20:04)
[2016-12-03] MEDS: DOCUSATE SODIUM 100 MG (COLACE) CAP PO SCH ×2 (09:19→20:02)
[2016-12-03] MEDS: LORATADINE (CLARITIN) 10 MG TAB PO PRN (12:56)
[2016-12-03] MEDS: MILK OF MAGNESIA 400 MG/5 ML 30 ML UDC PO PRN (18:36)
[2016-12-03 18:50] VITALS: BP 136/83
[2016-12-03] MEDS: diphenhydrAMINE 25 MG TAB (BENADRYL) PO PRN (19:28)
[2016-12-03] MEDS: BISACODYL 10 MG SUPP (DULCOLAX) PR PRN (22:49)
[2016-12-04] MEDS: AMPICILLIN IV SCH ×4 (02:24→20:23)
[2016-12-04] MEDS: NS IV SCH ×4 (02:24→20:23)
[2016-12-04 05:02] VITALS: BP 116/75
[2016-12-04 05:42] LABS: BASOPHILS % (AUTO) 1 % (0-10); EOSINOPHILS # (AUTO) 0.1 10^3/uL (0.0-0.3); EOSINOPHILS % (AUTO) 1 % (0-10); LYMPHOCYTES # (AUTO) 1.8 X 10^3 (1.0-4.0); LYMPHOCYTES % (AUTO) 30 % (12-44); MEAN CORPUSCULAR HEMOGLOBIN 30 PG (25-34); MEAN CORPUSCULAR HGB CONC 32 G/DL (32-36); MEAN CORPUSCULAR VOLUME 94 FL (80-99); MEAN PLATELET VOLUME 10.1 FL (7.4-10.4); MONOCYTES # (AUTO) 0.6 X 10^3 (0.0-1.0); MONOCYTES % (AUTO) 11 % (0-12); NEUTROPHILS # (AUTO) 3.4 X 10^3 (1.8-7.8); NEUTROPHILS % (AUTO) 57 % (42-75); PLATELET COUNT 180 10^3/uL (130-400); RED BLOOD COUNT 3.98 10^6/uL (4.35-5.85); RED CELL DISTRIBUTION WIDTH 12.7 % (10.0-14.5); WHITE BLOOD COUNT 5.8 10^3/uL (4.3-11.0)
[2016-12-04 06:03] LABS: ALANINE AMINOTRANSFERASE 11 U/L (0-55); ALBUMIN 3.5 GM/DL (3.2-4.5); ANION GAP 7 MMOL/L (5-14); ASPARTATE AMINO TRANSFERASE 14 U/L (5-34); BILIRUBIN,TOTAL 0.2 MG/DL (0.1-1.0); BLOOD UREA NITROGEN 10 MG/DL (7-18); BUN/CREATININE RATIO 8; CALCIUM 8.6 MG/DL (8.5-10.1); CARBON DIOXIDE 25 MMOL/L (21-32); CHLORIDE 106 MMOL/L (98-107); CREATININE SERUM 1.25 MG/DL (0.60-1.30); GFR ESTIMATED > 60; GLUCOSE 89 MG/DL (70-105); SODIUM 138 MMOL/L (135-145); TOTAL PROTEIN 7.1 GM/DL (6.4-8.2)
[2016-12-04 06:07] LABS: ERYTHROCYTE SEDIMENTATION RATE 20 MM/HR (0-15)
[2016-12-04] MEDS: PANTOPRAZOLE 40 MG (PROTONIX) TAB PO SCH (06:43)
[2016-12-04] MEDS: MULTIVIT W/MINERALS TAB (THERAGRAN M) PO SCH (06:43)
--- NOTE | 2016-12-04 08:20 | Progress Note (SOAP) ---
Subjective Time Seen by Provider: 08:15 Subjective/Events-last exam patient was sleepy yesterday. To observe today. TBI. Osteomyelitis. blood tests look good. Sedimentation rate slightly elevated at 20 Objective Exam Vital Signs Date Time Temp Pulse Resp B/P (MAP) Pulse Ox O2 Delivery O2 Flow Rate FiO2 12/04/16 05:02 98.8 80 18 116/75 94 Room Air 12/04/16 01:00 90 12/03/16 21:39 Room Air 12/03/16 20:00 Room Air 12/03/16 19:00 89 12/03/16 18:50 97.5 81 18 136/83 97 Room Air 12/03/16 13:51 102 12/03/16 09:48 Room Air 12/03/16 08:37 Room Air Capillary Refill : General Appearance: No Apparent Distress, WD/WN Results Lab Laboratory Tests 12/04/16 05:25: White Blood Count 5.8, Red Blood Count 3.98L, Hemoglobin 12.0L, Hematocrit 37L, Mean Corpuscular Volume 94, Mean Corpuscular Hemoglobin 30, Mean Corpuscular Hemoglobin Concent 32, Red Cell Distribution Width 12.7, Platelet Count 180, Mean Platelet Volume 10.1, Neutrophils (%) (Auto) 57, Lymphocytes (%) (Auto) 30 , Monocytes (%) (Auto) 11, Eosinophils (%) (Auto) 1, Basophils (%) (Auto) 1, Neutrophils # (Auto) 3.4, Lymphocytes # (Auto) 1.8, Monocytes # (Auto) 0.6, Eosinophils # (Auto) 0.1, Basophils # (Auto) 0.0, Erythrocyte Sedimentation Rate 20H, Sodium Level 138, Potassium Level 4.0, Chloride Level 106, Carbon Dioxide Level 25, Anion Gap 7, Blood Urea Nitrogen 10, Creatinine 1.25, Estimat Glomerular Filtration Rate > 60, BUN/Creatinine Ratio 8, Glucose Level 89, Calcium Level 8.6, Total Bilirubin 0.2, Aspartate Amino Transf (AST/SGOT) 14, Alanine Aminotransferase (ALT/SGPT) 11, Alkaline Phosphatase 69, Total Protein 7.1, Albumin 3.5 Assessment/Plan Assessment/Plan Assess & Plan/Chief Complaint TBI. Osteomyelitis. Fractures. Patient feeling better today. . . Patient having blood in the urine to see urologist today. 11/27/16. TBI. Fractures. Patient voicing no complaints today. . 11/29/16. Osteomyelitis. Fractures. TBI. Patient more alert today.. . Patient speaking better. . 11/30/16. TBI. Osteomyelitis. Fractures. Patient states she's feeling better. Patient more alert. . 12/01/16. TBI. Osteomyelitis. Fractures. Patient resting comfortably. Patient more observant in his speech. . . tBI. Osteomyelitis. Fractures. Patient's blood tests look good today. Sedimentation rate slightly elevated at 20 Clinical Quality Measures DVT/VTE Risk/Contraindication: Risk Factor Score Per Nursin RFS Level Per Nursing on Admit: 3=High JOON WALTER DO Dec 04, 2016 08:20
[2016-12-04] MEDS: GABAPENTIN 300 MG (NEURONTIN) CAP PO SCH ×3 (08:36→20:23)
[2016-12-04] MEDS: BACLOFEN 10 MG (LIORESAL) TAB PO SCH ×3 (08:36→20:23)
[2016-12-04] MEDS: LEVETIRACETAM 500 MG (KEPPRA) TAB PO SCH ×2 (08:36→20:23)
[2016-12-04] MEDS: RIVAROXABAN 20 MG TABLET (XARELTO) PO SCH (08:36)
[2016-12-04] MEDS: ALFUZOSIN HCL 10 MG TAB (UROXATRAL) PO SCH (08:36)
[2016-12-04] MEDS: DOCUSATE SODIUM 100 MG (COLACE) CAP PO SCH ×2 (08:36→20:23)
[2016-12-04] MEDS: LACTOBACILLUS Acidoph/Bulgar (LACTINEX/FLORANEX) TAB PO SCH (08:36)
[2016-12-04] MEDS: MILK OF MAGNESIA 400 MG/5 ML 30 ML UDC PO PRN (08:37)
[2016-12-04] MEDS: POLYETHYLENE GLYCOL 17 GM (MIRALAX) PACK PO SCH (08:37)
[2016-12-04] MEDS: OXYBUTYNIN 10 MG PO SCH ×3 (08:38→20:22)
--- NOTE | 2016-12-04 09:51 | Speech Therapy Daily Note ---
Speech Daily Progress Note Subjective Date Seen by Provider: Dec 04, 2016 Time Seen by Provider: 08:15 The patient was laying in bed upon entrance. The patient greeted the clinician and was agreeable to participation in dysphagia and speech therapy on this date. Objective To note: The patient required maximum, consistent verbal cueing and encouragement for limited participation in the speech pathology session. Diet Tolerance: The patient was observed consuming (feeding aided by clinician) pancakes with syrup and butter, as well as, Dr. Chen (via straw). No signs/ symptoms of aspiration were displayed with any consistency provided. The patient 's vocal quality remained clear throughout the session. Oral Motor Exercises: Oral motor (labial and lingual) exercises were continued on this date with limited participation and accuracy. The patient attempted lingual protrusion and lateralization, however, did not complete ten repetitions of each exercise regardless of maximum clinician prompting. Oropharyngeal Strengthening Exercises: Swallowing exercises were continued on this date. The clinician attempted an effortful swallow, base of tongue retraction, and adductor exercises. The patient performed limited repetitions of exercises (effortful swallow). Assessment Assessment Current Status: Poor Progress Treatment Plan Continue Plan of Care Communication Comprehension: 3 Expression: 2 Social Cognition Social Interaction: 1 Problem Solvin Memory: 2 Speech Short Term Goals Short Term Goals Short Term Goals 1. The patient will complete a full cognitive evaluation with mild clinician verbal prompting. MET (11/23/16) 2. The patient will display 80% accuracy with structured word-finding tasks with mild clinician verbal prompting. 3. The patient will demonstrate 80% accuracy with sequencing of ADL tasks with minimal clinician verbal prompting. 4. The patient will complete structured deductive reasoning tasks with 80% accuracy and mild clinician cueing. 5. The patient will display 80% accuracy with oral motor exercises with mild clinician direct modeling. 6. The patient will demonstrate 80% accuracy with oral and lingual range of motion and strengthening exercises with mild clinician verbal cueing. Time Frame-STG: Three Weeks Speech Penitentiary Goals Penitentiary Goals 1. The patient will improve cognitive linguistic skills for increased function and safety with ADL's in the least restrictive setting. 2. The patient will tolerate the least restrictive diet without signs/symptoms of aspiration or laryngeal penetration. Time Frame: Four Weeks Speech-Plan Treatment Plan Speech Therapy Treatment Plan: Continue Plan of Care Continue skilled speech pathology to target improved oral and lingual range of motion and coordination. Treatment Duration: Dec 27, 2016 Frequency: Modified Program (IRF) (Four to Five Treatment Sessions Per Week) Estimated Hrs Per Day: .5 hour per day Rehab Potential: Poor Safety Risks/Education Teaching Recipient: Patient Teaching Methods: Demonstration, Handout, Discussion Response to Teaching: Reinforcement Needed Education Topics Provided: Dysphagia Exercises Time Speech Therapy Time In: 08:15 Speech Therapy Time Out: 08:45 Total Billed Time: 30 Billed Treatment Time 1, ELMO 1, PHILLY SANCHEZ Dec 04, 2016 09:51
--- NOTE | 2016-12-04 11:02 | Physical Therapy Daily Note ---
PT Daily Note-Current Subjective Patient in bed pre tx, has no complaints of pain. Will be co-treating with OT this morning. Appearance Patient in wheelchair post tx at table in the common area with his mother. Mental Status Patient Orientation: Person Attachments: Suprapubic Catheter Transfers Functional [place] Measure 0=Not Assessed/NA 4=Minimal Assistance 1=Total Assistance 5=Supervision or Setup 2=Maximal Assistance 6=Modified [place] 3=Moderate Assistance 7=Complete IndependenceIRFPAI Quality Coding Scale 6 Independent with activity with or without an assistive device 5 Patient requires set up or clean up by helper. Patient completes activity by themselves 4 Supervision or touching assist (CGA). [place] provide cues , steadying assist 3 The helper provides less than half the effort to complete the activity 2 The helper provides more than half the effort to complete the activity 1 Dependent. The helper does all the effort to complete an activity 7 Patient refused to complete or attempt activity 9 The patient did not perform the activity before the current illness or injury 88 Not attempted due to Medical conditions or safety concerns Transfers (B, C, W/C) (FIM): 1 Scootin Rollin Bed to/from Chair: 1 transfer with zoey, patient needed max assist to even help with turning to the left side using his right arm, normally he will help a little but not enough to be considered max assist Weight Bearing Right Lower Extremity: Right Non Weight Bearing Treatments Patient was hoyered to his wheelchair from his bed and then to the therapy table from his wheelchair. OT performed UE ROM and PT performed LE ROM. Patient resisted and asked to stop during the whole treatment. Assessment Current Status: Poor Progress No change in mobility. Poor motivation and participation. Patient has extreme knee, hip, and trunk contractures. PT Short Term Goals Short Term Goals Time Frame: Nov 30, 2016 Transfers (B,C,W/C) (FIM): 2 PT Long-Term Goals Brim Rounder Goals PT Long-Term Goals Time Frame: Dec 14, 2016 Transfers (B,C,W/C) (FIM): 2 Sit to Lying (QC): 2 Lying-Sitting on Side/Bed(QC): 2 Rollin Roll Left to Right (QC): 2 Chair/Nnt-wj-Ioewh Xfer(QC): 2 PT Plan Problem List Problem List: Activity Tolerance, Functional Strength, Safety, Balance, Transfer, Bed Mobility, ROM Treatment/Plan Treatment Plan: Continue Plan of Care Treatment Plan: Bed Mobility, Concurrent Therapy, Education, Functional Activity Juanpablo, Functional Strength, Group Therapy, Safety, Therapeutic Exercise , Transfers Treatment Duration: Dec 14, 2016 Frequency: At least 5 of 7 days/Wk (IRF) Estimated Hrs Per Day: 1.5 hours per day Patient and/or Family Agrees t: Yes Safety Risks/Education Patient Education: Transfer Techniques, Correct Positioning, Safety Issues Teaching Recipient: Patient Teaching Methods: Demonstration, Discussion Response to Teaching: Reinforcement Needed Time/GCodes Time In: 1015 Time Out: 1100 Total Billed Treatment Time: 45 Total Billed Treatment 1 visit EX 20' FA 25' co-treated with OT for the whole 45' FREDDY TRIMBLE PT Dec 04, 2016 11:02
--- NOTE | 2016-12-04 12:27 | Occupational Ther Daily Note ---
OT Current Status-Daily Note Subjective Pt sleeping in bed. Mother present in room. Mother was asking questions about why pt was sleeping so much and that he used to talk so you could understand him. Mother also stated that he was able to turn toward L side by himself at the last facility. Pt did wake while his mother was talking. Pt agreed to therapy. Mental Status/Objective Patient Orientation: Person, Place, Time, Situation Functional [place] Measure 0=Not Assessed/NA 4=Minimal Assistance 1=Total Assistance 5=Supervision or Setup 2=Maximal Assistance 6=Modified [place] 3=Moderate Assistance 7=Complete [place] Attachments: Suprapubic Catheter, Telemetry ADL-Treatment Functional [place] Measure 0=Not Assessed/NA 4=Minimal Assistance 1=Total Assistance 5=Supervision or Setup 2=Maximal Assistance 6=Modified [place] 3=Moderate Assistance 7=Complete IndependenceIRFPAI Quality Coding Scale 6 Independent with activity with or without an assistive device 5 Patient requires set up or clean up by helper. Patient completes activity by themselves 4 Supervision or touching assist (CGA). [place] provide cues , steadying assist 3 The helper provides less than half the effort to complete the activity 2 The helper provides more than half the effort to complete the activity 1 Dependent. The helper does all the effort to complete an activity 7 Patient refused to complete or attempt activity 9 The patient did not perform the activity before the current illness or injury 88 Not attempted due to Medical conditions or safety concerns Other Treatment OT/PT co-treated, PT worked on transfers and LE stretching, OT worked on active functional movement of UE's during bed mobility and UE stretching. Pt was able to reach toward bedrail then when hand was placed on, attempted to pull self over. Pt was transferred with zoey lift to w/c then to therapy mat. UE stretching to R UE to increase ROM and decrease contractures. Pt c/o pain with stretching and continued to ask for therapist's to stop. Encouraged pt to work through the discomfort to increase pt's ability to move easier. Pt then was transferred back to w/c. After therapy, pt sitting in w/c with mother at [facility]. All needs met in room. OT Short Term Goals Short Term Goals Time Frame: Dec 06, 2016 Eating(FIM): 3 Grooming(FIM): 3 Bathing(FIM): 2 Upper Body Dressing(FIM): 2 Lower Body Dressing(FIM): 2 Toileting(FIM): 2 Transfers (B,C,W/C) (FIM): 2 Toilet/Commode Transfer(FIM): 2 Additional Short Term Goals: 1-Demonstrate ADL Tasks, 2-Verbalize Understanding , 3-ImproveStrength/Juanpablo 1=Demonstrate adherence to instructed precautions during ADL tasks. 2=Patient will verbalize/demonstrate understanding of assistive devices/ modifications for ADL. 3=Patient will improve strength/tolerance for activity to enable patient to perform ADL's. OT Penitentiary Goals Rand Maker Goals Time Frame: Dec 27, 2016 Eating (FIM): 4 Eating (QC): 4 Groomin Oral Hygiene (QC): 4 Bathing(FIM): 3 Shower/Bathe Self (QC): 3 Upper Body Dressing(FIM): 3 Upper Body Dressing (QC): 3 Lower Body Dressing(FIM): 3 Lower Body Dressing (QC): 3 On/Off Footwear (QC): 2 Toileting(FIM): 2 Toileting Hygiene (QC): 2 Transfers (B,C,W/C) (FIM): 2 Toilet/Commode Transfer(FIM): 2 Toilet/Commode Transfer (QC): 2 Shower Transfer(FIM): 2 Additional Goals: 1-Demonstrate ADL Tasks, 2-Verbalize Understanding, 3- ImproveStrength/Juanpablo 1=Demonstrate adherence to instructed precautions during ADL tasks. 2=Patient will verbalize/demonstrate understanding of assistive devices/ modifications for ADL. 3=Patient will improve strength/tolerance for activity to enable patient to perform ADL's. OT Education/Plan Discharge Recommendations Plan/Recommendations: Continue POC Treatment Plan/Plan of Care Patient would benefit from OT for education, treatment and training to promote independence in ADL's, mobility, safety and/or upper extremity function for ADL' s. Plan of Care: ADL Retraining, Caregiver Training, Cognitive Retraining, Functional Mobility, Group Exercise/Act as Ind, UE Funct Exercise/Act Treatment Duration: Dec 27, 2016 Frequency: At least 5 of 7 days/Wk (IRF) Estimated Hrs Per Day: 1.5 hours per day Agreement: Yes Rehab Potential: Poor Time/GCodes Start Time: 10:00 Stop Time: 11:00 Total Time Billed (hr/min): 60 Billed Treatment Time 1 visit-FA 4 (60 min) ZEKE CANNON Dec 04, 2016 12:27
--- NOTE | 2016-12-04 13:19 | Speech Therapy Progress Note ---
Therapy Progress Note Per patient's mother's request, the clinician provided a progress update to the patient's mother. The clinician explained the exercises being practiced, as well as, the patient's progress towards initial goals. The clinician shared with the patient's mother that the patient does consistently require maximum prompting for limited participation. The patient's mother verbalized comprehension of the discussed material. PHILLY HAZEL Dec 04, 2016 13:19
--- NOTE | 2016-12-04 15:46 | Therapy Group Daily Note ---
Therapy Daily Group Note Patient Education Topic Other List Below Exercises LE Seated Exercise, UE Exercise Other/Notes Pt transported to OT/PT group via w/c. Group consisted of introductions (name, place living, first thing pt does in the fall), socialization, seated UE/LE exercises, posture while seated, benefits of exercises, ARU description/ expectations, breathing posture and peer conversations. Pt was able to introduce self with verbal prompting though did not contribute to conversations spontaneously. Pt would answer questions directed to him. Pt had eyes closed throughout most of group, but was able to verbalize what was going on in group. Pt required [facility] assistance to start and continue UE/LE seated exercises with R side, PROM to L side. After therapy, pt requested to lay down in bed. Transferred to bed with zoey lift. Mother present in room. All needs met in room. Start Time: 13:00 Stop Time: 14:15 Total Billed Treatment Time: 75 Total Billed Treatment 1-GRP ZEKE CANNON Dec 04, 2016 15:46
[2016-12-04 17:54] VITALS: BP 134/88
[2016-12-04] MEDS: BISACODYL 10 MG SUPP (DULCOLAX) PR PRN (18:48)
--- NOTE | 2016-12-04 20:16 | PM & R (SOAP) Progress Note ---
Subjective Time Seen by Provider: 20:10 Subjective/Events-last exam Patient was seen in his room this evening with his mother Patient resting comfortably watching TV Mother reports constipation for 3 days meds being adjusted Patient remains fairly dependent for mobility Objective Exam Last Set of Vital Signs Vital Signs Date Time Temp Pulse Resp B/P (MAP) Pulse Ox O2 Delivery O2 Flow Rate FiO2 12/04/16 17:54 96.8 82 16 134/88 97 Room Air Capillary Refill : I&O Intake and Output 12/05/16 00:00 Intake Total 970 ml Output Total 1175 ml Balance -205 ml Intake Oral 670 ml IV Total 300 ml Output Urine Total 1175 ml General: Cooperative, No Acute Distress HEENT: Mucous Memb Moist/[place] Neck: Supple, No JVD Lungs: Clear to Auscultation Heart: Regular Rate Abdomen: Normal Bowel Sounds, Soft, No Tenderness, Other (Suprapubic catheter in place) Extremities: Other (Plus contractures and rt ankle dressed) Neuro: Other (WEakness and contractures . lower limbs then uppers) Results Lab Laboratory Tests 12/04/16 05:25: White Blood Count 5.8, Red Blood Count 3.98L, Hemoglobin 12.0L, Hematocrit 37L, Mean Corpuscular Volume 94, Mean Corpuscular Hemoglobin 30, Mean Corpuscular Hemoglobin Concent 32, Red Cell Distribution Width 12.7, Platelet Count 180, Mean Platelet Volume 10.1, Neutrophils (%) (Auto) 57, Lymphocytes (%) (Auto) 30 , Monocytes (%) (Auto) 11, Eosinophils (%) (Auto) 1, Basophils (%) (Auto) 1, Neutrophils # (Auto) 3.4, Lymphocytes # (Auto) 1.8, Monocytes # (Auto) 0.6, Eosinophils # (Auto) 0.1, Basophils # (Auto) 0.0, Erythrocyte Sedimentation Rate 20H, Sodium Level 138, Potassium Level 4.0, Chloride Level 106, Carbon Dioxide Level 25, Anion Gap 7, Blood Urea Nitrogen 10, Creatinine 1.25, Estimat Glomerular Filtration Rate > 60, BUN/Creatinine Ratio 8, Glucose Level 89, Calcium Level 8.6, Total Bilirubin 0.2, Aspartate Amino Transf (AST/SGOT) 14, Alanine Aminotransferase (ALT/SGPT) 11, Alkaline Phosphatase 69, Total Protein 7.1, Albumin 3.5 Assessment/Plan Assessment 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 Patient is scheduled to see surgeon re rt foot osteomyelitis later this month- follow-up with SW re details Treat constipation Next Team Conference 12-06-16 BEAU MA MD Dec 04, 2016 20:16
[2016-12-05] MEDS: NS IV SCH ×4 (02:55→20:56)
[2016-12-05] MEDS: AMPICILLIN IV SCH ×4 (02:55→20:56)
[2016-12-05] MEDS: MULTIVIT W/MINERALS TAB (THERAGRAN M) PO SCH (06:02)
[2016-12-05] MEDS: PANTOPRAZOLE 40 MG (PROTONIX) TAB PO SCH (06:02)
[2016-12-05 06:33] VITALS: BP 123/77
[2016-12-05] MEDS: RIVAROXABAN 20 MG TABLET (XARELTO) PO SCH (08:04)
[2016-12-05] MEDS: LACTOBACILLUS Acidoph/Bulgar (LACTINEX/FLORANEX) TAB PO SCH (08:04)
[2016-12-05] MEDS: DOCUSATE SODIUM 100 MG (COLACE) CAP PO SCH ×2 (08:04→20:56)
[2016-12-05] MEDS: POLYETHYLENE GLYCOL 17 GM (MIRALAX) PACK PO SCH (08:04)
[2016-12-05] MEDS: LEVETIRACETAM 500 MG (KEPPRA) TAB PO SCH ×2 (08:04→20:56)
[2016-12-05] MEDS: ALFUZOSIN HCL 10 MG TAB (UROXATRAL) PO SCH (08:04)
[2016-12-05] MEDS: GABAPENTIN 300 MG (NEURONTIN) CAP PO SCH ×3 (08:04→20:56)
[2016-12-05] MEDS: BACLOFEN 10 MG (LIORESAL) TAB PO SCH ×3 (08:04→20:56)
[2016-12-05] MEDS: OXYBUTYNIN 10 MG PO SCH ×3 (08:05→20:57)
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
--- NOTE | 2016-12-05 09:23 | Speech Therapy Daily Note ---
Speech Daily Progress Note Subjective Date Seen by Provider: Dec 05, 2016 Time Seen by Provider: 08:15 The patient was laying in bed upon entrance. The patient greeted the clinician and was agreeable to participation in dysphagia and speech therapy on this date. Objective To note: The patient required maximum, consistent verbal cueing and encouragement for limited participation in the speech pathology session. The patient frequently perseverates on topics, requiring maximum cueing to return to task. On this date, the patient consistently inquires about what time his mom will be present and his request for cake. Diet Tolerance: The patient was observed consuming (feeding aided by clinician) biscuits and gravy, sausage, as well as, Dr. Chen (via straw). No signs/ symptoms of aspiration were displayed with any consistency provided. The patient 's vocal quality remained clear throughout the session. Oral Motor Exercises: Oral motor (labial and lingual) exercises were continued on this date with limited participation and accuracy. Oropharyngeal Strengthening Exercises: Swallowing exercises were continued on this date. The clinician attempted an effortful swallow, base of tongue retraction, and adductor exercises. The patient performed limited repetitions of exercises (effortful swallow). Word-Finding: The patient was provided a specific category and asked to provide three members that would "fit into" the category. The patient displayed fair accuracy with this task, however, would always answer "don't know" prior to verbal prompting. With moderate verbal prompting, the patient displayed approximately 70% accuracy. Assessment Assessment Current Status: Poor Progress Treatment Plan Continue Plan of Care Communication Comprehension: 3 Expression: 2 Social Cognition Social Interaction: 1 Problem Solvin Memory: 2 Speech Short Term Goals Short Term Goals Short Term Goals 1. The patient will complete a full cognitive evaluation with mild clinician verbal prompting. MET (11/23/16) 2. The patient will display 80% accuracy with structured word-finding tasks with mild clinician verbal prompting. 3. The patient will demonstrate 80% accuracy with sequencing of ADL tasks with minimal clinician verbal prompting. 4. The patient will complete structured deductive reasoning tasks with 80% accuracy and mild clinician cueing. 5. The patient will display 80% accuracy with oral motor exercises with mild clinician direct modeling. 6. The patient will demonstrate 80% accuracy with oral and lingual range of motion and strengthening exercises with mild clinician verbal cueing. Time Frame-STG: Three Weeks Speech [facility] Goals Director Clinical Operations Goals 1. The patient will improve cognitive linguistic skills for increased function and safety with ADL's in the least restrictive setting. 2. The patient will tolerate the least restrictive diet without signs/symptoms of aspiration or laryngeal penetration. Time Frame: Four Weeks Speech-Plan Treatment Plan Speech Therapy Treatment Plan: Continue Plan of Care Continue skilled speech pathology to target functional expressive and receptive communication. Treatment Duration: Dec 27, 2016 Frequency: Modified Program (IRF) (Four to Five Treatment Sessions Per Week) Estimated Hrs Per Day: .5 hour per day Rehab Potential: Poor Safety Risks/Education Teaching Recipient: Patient Teaching Methods: Discussion Response to Teaching: Reinforcement Needed Education Topics Provided: Word-Finding Strategies Time Speech Therapy Time In: 08:15 Speech Therapy Time Out: 08:45 Total Billed Time: 30 Billed Treatment Time 1 SLJOHANNE 1 DYST (15 minutes each) PHILLY HAZEL Dec 05, 2016 09:23
--- NOTE | 2016-12-05 09:56 | Physical Therapy Daily Note ---
PT Daily Note-Current Subjective Patient in bed pre tx, agrees to PT, will be co-treating with OT this morning. Patient has no complaints of pain. Appearance [place] in bed post tx with OT finishing up grooming. Mental Status Patient Orientation: Person Attachments: Suprapubic Catheter, IV Transfers Functional [place] Measure 0=Not Assessed/NA 4=Minimal Assistance 1=Total Assistance 5=Supervision or Setup 2=Maximal Assistance 6=Modified [place] 3=Moderate Assistance 7=Complete IndependenceIRFPAI Quality Coding Scale 6 Independent with activity with or without an assistive device 5 Patient requires set up or clean up by helper. Patient completes activity by themselves 4 Supervision or touching assist (CGA). [place] provide cues , steadying assist 3 The helper provides less than half the effort to complete the activity 2 The helper provides more than half the effort to complete the activity 1 Dependent. The helper does all the effort to complete an activity 7 Patient refused to complete or attempt activity 9 The patient did not perform the activity before the current illness or injury 88 Not attempted due to Medical conditions or safety concerns Transfers (B, C, W/C) (FIM): 1 Scootin Rollin Bed to/from Chair: 1 zoey for transfers, patient is able to assist a little with rolling using his right arm but not enough to be considered max assist. Patient had to practice rolling many times to get sling in/out and for dressing. Patient has trunk contractures and has legs curled up beneath him and rotated to the left, making rolling to the right very difficult and painful. Weight Bearing Right Lower Extremity: Right Non Weight Bearing Treatments Patient was transferred from the bed to his wheelchair and taken to the shower room and they transferred to a shower chair, shower/bathing performed and then transferred back to his wheelchair and then back to bed. Patient has to roll many times for getting sling in/out and for dressing at the end. Co-treated with OT for the whole 60'. PT worked on transfers, bathing and sitting balance and positioning. OT worked on transfers, bathing, dressing. Assessment Current Status: Poor Progress no change in mobility PT Short Term Goals Short Term Goals Time Frame: Nov 30, 2016 Transfers (B,C,W/C) (FIM): 2 PT Actuarial Intern Goals Mcfp Goals PT Mcfp Goals Time Frame: Dec 14, 2016 Transfers (B,C,W/C) (FIM): 2 Sit to Lying (QC): 2 Lying-Sitting on Side/Bed(QC): 2 Rollin Roll Left to Right (QC): 2 Chair/Rnz-kw-Vljxs Xfer(QC): 2 PT Plan Problem List Problem List: Activity Tolerance, Functional Strength, Safety, Balance, Transfer, Bed Mobility, ROM Treatment/Plan Treatment Plan: Continue Plan of Care Treatment Plan: Bed Mobility, Concurrent Therapy, Education, Functional Activity Juanpablo, Functional Strength, Group Therapy, Safety, Therapeutic Exercise , Transfers Treatment Duration: Dec 14, 2016 Frequency: At least 5 of 7 days/Wk (IRF) Estimated Hrs Per Day: 1.5 hours per day Patient and/or Family Agrees t: Yes Safety Risks/Education Patient Education: Transfer Techniques, Correct Positioning, W/C Management, Safety Issues Teaching Recipient: Patient Teaching Methods: Demonstration, Discussion Response to Teaching: Reinforcement Needed Time/GCodes Time In: 900 Time Out: 1000 Total Billed Treatment Time: 60 Total Billed Treatment 1 visit FA 60' FREDDY TRIMBLE PT Dec 05, 2016 09:56
[2016-12-05] MEDS: IBUPROFEN TABLET 200 MG TAB PO PRN ×2 (10:14→19:03)
--- NOTE | 2016-12-05 10:24 | Occupational Ther Daily Note ---
OT Current Status-Daily Note Subjective Pt sleeping in bed. Pt did respond to question by giving thumbs up or shaking head, would not verbalized. Pt agreed to therapy. No c/o pain at this time. Mental Status/Objective Patient Orientation: Person, Place, Time, Situation Functional [place] Measure 0=Not Assessed/NA 4=Minimal Assistance 1=Total Assistance 5=Supervision or Setup 2=Maximal Assistance 6=Modified [place] 3=Moderate Assistance 7=Complete [place] Attachments: Suprapubic Catheter ADL-Treatment PT/OT co-treatment today, PT worked on sitting balance, transfers and LE stretching and OT worked on bathing/dressing. Pt would reach toward L bedrail with R UE and bring R LE over body to turn toward left side. Total assist to turn towards R side, verbal and physical cues needed to have pt straighten legs for turn. Pt transferred to w/c using zoey lift. Pt requires assist to complete all of bathing/drying/dressing. Pt is able to hold washcloth in hand and place on face, inefficient to wash face or body. Pt is able to verbalize what he wants to be done and what clothes he wants to wear. Pt was able to hold onto oral sponge to cleanse mouth though fell asleep while completing task , FERREIRA finished task. After therapy, pt lying in bed with call light/phone in reach. All needs met in room. Functional [place] Measure 0=Not Assessed/NA 4=Minimal Assistance 1=Total Assistance 5=Supervision or Setup 2=Maximal Assistance 6=Modified [place] 3=Moderate Assistance 7=Complete IndependenceIRFPAI Quality Coding Scale 6 Independent with activity with or without an assistive device 5 Patient requires set up or clean up by helper. Patient completes activity by themselves 4 Supervision or touching assist (CGA). [place] provide cues , steadying assist 3 The helper provides less than half the effort to complete the activity 2 The helper provides more than half the effort to complete the activity 1 Dependent. The helper does all the effort to complete an activity 7 Patient refused to complete or attempt activity 9 The patient did not perform the activity before the current illness or injury 88 Not attempted due to Medical conditions or safety concerns Grooming (FIM): 2 Oral Hygiene (QC): 2 Bathing (FIM): 1 Shower/Bathe Self (QC): 1 Upper Body (FIM): 1 Upper Body Dressing (QC): 1 Lower Body Dressing (FIM): 1 Lower Body Dressing (QC): 1 On/Off Footwear (QC): 1 Transfers (B, C, W/C) (FIM): 1 Shower Transfer(FIM): 1 OT Short Term Goals Short Term Goals Time Frame: Dec 06, 2016 Eating(FIM): 3 Grooming(FIM): 3 Bathing(FIM): 2 Upper Body Dressing(FIM): 2 Lower Body Dressing(FIM): 2 Toileting(FIM): 2 Transfers (B,C,W/C) (FIM): 2 Toilet/Commode Transfer(FIM): 2 Additional Short Term Goals: 1-Demonstrate ADL Tasks, 2-Verbalize Understanding , 3-ImproveStrength/Juanpablo 1=Demonstrate adherence to instructed precautions during ADL tasks. 2=Patient will verbalize/demonstrate understanding of assistive devices/ modifications for ADL. 3=Patient will improve strength/tolerance for activity to enable patient to perform ADL's. OT Rod Finisher Goals Rod Finisher Goals Time Frame: Dec 27, 2016 Eating (FIM): 4 Eating (QC): 4 Groomin Oral Hygiene (QC): 4 Bathing(FIM): 3 Shower/Bathe Self (QC): 3 Upper Body Dressing(FIM): 3 Upper Body Dressing (QC): 3 Lower Body Dressing(FIM): 3 Lower Body Dressing (QC): 3 On/Off Footwear (QC): 2 Toileting(FIM): 2 Toileting Hygiene (QC): 2 Transfers (B,C,W/C) (FIM): 2 Toilet/Commode Transfer(FIM): 2 Toilet/Commode Transfer (QC): 2 Shower Transfer(FIM): 2 Additional Goals: 1-Demonstrate ADL Tasks, 2-Verbalize Understanding, 3- ImproveStrength/Juanpablo 1=Demonstrate adherence to instructed precautions during ADL tasks. 2=Patient will verbalize/demonstrate understanding of assistive devices/ modifications for ADL. 3=Patient will improve strength/tolerance for activity to enable patient to perform ADL's. OT Education/Plan Discharge Recommendations Plan/Recommendations: Continue POC Treatment Plan/Plan of Care Patient would benefit from OT for education, treatment and training to promote independence in ADL's, mobility, safety and/or upper extremity function for ADL' s. Plan of Care: ADL Retraining, Caregiver Training, Cognitive Retraining, Functional Mobility, Group Exercise/Act as Ind, UE Funct Exercise/Act Treatment Duration: Dec 27, 2016 Frequency: At least 5 of 7 days/Wk (IRF) Estimated Hrs Per Day: 1.5 hours per day Agreement: Yes Rehab Potential: Poor Time/GCodes Start Time: 09:00 Stop Time: 10:00 Total Time Billed (hr/min): 60 Billed Treatment Time 1 visit-ADL 4 (60 min) co-treat with PT (60 min) ZEKE CANNON Dec 05, 2016 10:24
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
--- NOTE | 2016-12-05 13:30 | Physical Therapy Daily Note ---
PT Daily Note-Current Subjective Patient in bed pre tx, has no complaints of pain but will when stretched. Appearance Patient in bed post tx with family in the room. Mental Status Patient Orientation: Person Attachments: Suprapubic Catheter Transfers Functional [place] Measure 0=Not Assessed/NA 4=Minimal Assistance 1=Total Assistance 5=Supervision or Setup 2=Maximal Assistance 6=Modified [place] 3=Moderate Assistance 7=Complete IndependenceIRFPAI Quality Coding Scale 6 Independent with activity with or without an assistive device 5 Patient requires set up or clean up by helper. Patient completes activity by themselves 4 Supervision or touching assist (CGA). [place] provide cues , steadying assist 3 The helper provides less than half the effort to complete the activity 2 The helper provides more than half the effort to complete the activity 1 Dependent. The helper does all the effort to complete an activity 7 Patient refused to complete or attempt activity 9 The patient did not perform the activity before the current illness or injury 88 Not attempted due to Medical conditions or safety concerns Rollin Weight Bearing Right Lower Extremity: Right Non Weight Bearing Exercises bilateral lower extremity stretching and trunk stretching 30' Treatments stretching/ROM Assessment Current Status: Poor Progress no change in mobility, extreme knee and trunk contractures PT Short Term Goals Short Term Goals Time Frame: Nov 30, 2016 Transfers (B,C,W/C) (FIM): 2 PT Skilled Nursing Goals Amusement Machine Mechanic Goals PT Amusement Machine Mechanic Goals Time Frame: Dec 14, 2016 Transfers (B,C,W/C) (FIM): 2 Sit to Lying (QC): 2 Lying-Sitting on Side/Bed(QC): 2 Rollin Roll Left to Right (QC): 2 Chair/[id number] Xfer(QC): 2 PT Plan Problem List Problem List: Activity Tolerance, Functional Strength, Safety, Balance, Transfer, Bed Mobility, ROM Treatment/Plan Treatment Plan: Continue Plan of Care Treatment Plan: Bed Mobility, Concurrent Therapy, Education, Functional Activity Juanpablo, Functional Strength, Group Therapy, Safety, Therapeutic Exercise , Transfers Treatment Duration: Dec 14, 2016 Frequency: At least 5 of 7 days/Wk (IRF) Estimated Hrs Per Day: 1.5 hours per day Patient and/or Family Agrees t: Yes Safety Risks/Education Patient Education: Correct Positioning, Safety Issues Teaching Recipient: Patient Teaching Methods: Demonstration, Discussion Response to Teaching: Reinforcement Needed Time/GCodes Time In: 1300 Time Out: 1330 Total Billed Treatment Time: 30 Total Billed Treatment 1 visit EX 30' FREDDY TRIMBLE PT Dec 05, 2016 13:30
--- NOTE | 2016-12-05 14:08 | Occupational Ther Daily Note ---
OT Current Status-Daily Note Subjective Pt sleeping in bed. Pt open eye when FERREIRA said his name and shook his head to yes when asked if he was ready for therapy. No c/o pain at this time. Mental Status/Objective Patient Orientation: Person, Non-Verbal/Aphasic Functional [place] Measure 0=Not Assessed/NA 4=Minimal Assistance 1=Total Assistance 5=Supervision or Setup 2=Maximal Assistance 6=Modified [place] 3=Moderate Assistance 7=Complete [place] Attachments: IV, Suprapubic Catheter ADL-Treatment Functional [place] Measure 0=Not Assessed/NA 4=Minimal Assistance 1=Total Assistance 5=Supervision or Setup 2=Maximal Assistance 6=Modified [place] 3=Moderate Assistance 7=Complete IndependenceIRFPAI Quality Coding Scale 6 Independent with activity with or without an assistive device 5 Patient requires set up or clean up by helper. Patient completes activity by themselves 4 Supervision or touching assist (CGA). [place] provide cues , steadying assist 3 The helper provides less than half the effort to complete the activity 2 The helper provides more than half the effort to complete the activity 1 Dependent. The helper does all the effort to complete an activity 7 Patient refused to complete or attempt activity 9 The patient did not perform the activity before the current illness or injury 88 Not attempted due to Medical conditions or safety concerns Other Treatment Stretch and massage to L UE while pt supine in bed. Pt was able to tolerate stretching until end of treatment time. Increased PROM to L elbow, wrist and fingers noticed after stretch. After therapy, pt's aunt was in room. All needs met in room. OT Short Term Goals Short Term Goals Time Frame: Dec 06, 2016 Eating(FIM): 3 Grooming(FIM): 3 Bathing(FIM): 2 Upper Body Dressing(FIM): 2 Lower Body Dressing(FIM): 2 Toileting(FIM): 2 Transfers (B,C,W/C) (FIM): 2 Toilet/Commode Transfer(FIM): 2 Additional Short Term Goals: 1-Demonstrate ADL Tasks, 2-Verbalize Understanding , 3-ImproveStrength/Juanpablo 1=Demonstrate adherence to instructed precautions during ADL tasks. 2=Patient will verbalize/demonstrate understanding of assistive devices/ modifications for ADL. 3=Patient will improve strength/tolerance for activity to enable patient to perform ADL's. OT Press Technician Goals Press Technician Goals Time Frame: Dec 27, 2016 Eating (FIM): 4 Eating (QC): 4 Groomin Oral Hygiene (QC): 4 Bathing(FIM): 3 Shower/Bathe Self (QC): 3 Upper Body Dressing(FIM): 3 Upper Body Dressing (QC): 3 Lower Body Dressing(FIM): 3 Lower Body Dressing (QC): 3 On/Off Footwear (QC): 2 Toileting(FIM): 2 Toileting Hygiene (QC): 2 Transfers (B,C,W/C) (FIM): 2 Toilet/Commode Transfer(FIM): 2 Toilet/Commode Transfer (QC): 2 Shower Transfer(FIM): 2 Additional Goals: 1-Demonstrate ADL Tasks, 2-Verbalize Understanding, 3- ImproveStrength/Juanpablo 1=Demonstrate adherence to instructed precautions during ADL tasks. 2=Patient will verbalize/demonstrate understanding of assistive devices/ modifications for ADL. 3=Patient will improve strength/tolerance for activity to enable patient to perform ADL's. OT Education/Plan Discharge Recommendations Plan/Recommendations: Continue POC Treatment Plan/Plan of Care Patient would benefit from OT for education, treatment and training to promote independence in ADL's, mobility, safety and/or upper extremity function for ADL' s. Plan of Care: ADL Retraining, Caregiver Training, Cognitive Retraining, Functional Mobility, Group Exercise/Act as Ind, UE Funct Exercise/Act Treatment Duration: Dec 27, 2016 Frequency: At least 5 of 7 days/Wk (IRF) Estimated Hrs Per Day: 1.5 hours per day Agreement: Yes Rehab Potential: Poor Time/GCodes Start Time: 12:35 Stop Time: 13:00 Total Time Billed (hr/min): 25 Billed Treatment Time 1 visit-FA 2 (25 min) ZEKE CANNON Dec 05, 2016 14:08
[2016-12-05 18:27] VITALS: BP 135/85
[2016-12-05] MEDS: diphenhydrAMINE 25 MG TAB (BENADRYL) PO PRN (19:55)
[2016-12-06] MEDS: AMPICILLIN IV SCH ×4 (03:12→22:14)
[2016-12-06] MEDS: NS IV SCH ×4 (03:12→22:14)
[2016-12-06] MEDS: MULTIVIT W/MINERALS TAB (THERAGRAN M) PO SCH (05:59)
[2016-12-06] MEDS: PANTOPRAZOLE 40 MG (PROTONIX) TAB PO SCH (05:59)
[2016-12-06 06:00] VITALS: BP 149/85
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
[2016-12-06] MEDS: BACLOFEN 10 MG (LIORESAL) TAB PO SCH ×3 (08:24→20:52)
[2016-12-06] MEDS: ALFUZOSIN HCL 10 MG TAB (UROXATRAL) PO SCH (08:24)
[2016-12-06] MEDS: GABAPENTIN 300 MG (NEURONTIN) CAP PO SCH ×3 (08:24→20:52)
[2016-12-06] MEDS: LORATADINE (CLARITIN) 10 MG TAB PO PRN (08:24)
[2016-12-06] MEDS: LEVETIRACETAM 500 MG (KEPPRA) TAB PO SCH ×2 (08:24→20:52)
[2016-12-06] MEDS: DOCUSATE SODIUM 100 MG (COLACE) CAP PO SCH ×2 (08:24→20:52)
[2016-12-06] MEDS: RIVAROXABAN 20 MG TABLET (XARELTO) PO SCH (08:24)
[2016-12-06] MEDS: LACTOBACILLUS Acidoph/Bulgar (LACTINEX/FLORANEX) TAB PO SCH (08:24)
[2016-12-06] MEDS: POLYETHYLENE GLYCOL 17 GM (MIRALAX) PACK PO SCH (08:25)
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
[2016-12-06] MEDS: OXYBUTYNIN 10 MG PO SCH ×3 (08:28→20:55)
--- NOTE | 2016-12-06 09:38 | Speech Therapy Daily Note ---
Speech Daily Progress Note Subjective Date Seen by Provider: Dec 06, 2016 Time Seen by Provider: 08:00 The patient was seated upright in bed upon entrance. The patient requested to be reclined, therefore, the clinician reclined the patient. The patient stated he wanted to eat. To eat, the patient must be seated upright in bed. The patient refused to be upright, therefore, breakfast could not be provided. The patient's RN was notified of the patient's request. Objective To note: The patient required maximum, consistent verbal cueing and encouragement for limited participation in the speech pathology session. The patient frequently perseverates on topics, requiring maximum cueing to return to task. The patient continuously stated, "lay me down," "I'm done," "that's it, " "no, I can't." No progression towards goals or progression through therapy has been demonstrated or accomplished. Oral Motor Exercises: Oral motor (labial and lingual) exercises were continued on this date with limited participation and accuracy, as well as, maximum verbal prompting. Oropharyngeal Strengthening Exercises: Swallowing exercises were continued on this date. The clinician attempted an effortful swallow, base of tongue retraction, and adductor exercises. The patient performed limited repetitions of exercises with maximum clinician cueing and prompting. Assessment Assessment Current Status: Poor Progress Treatment Plan Continue Plan of Care Communication Comprehension: 3 Expression: 2 Social Cognition Social Interaction: 1 Problem Solvin Memory: 2 Speech Short Term Goals Short Term Goals Short Term Goals 1. The patient will complete a full cognitive evaluation with mild clinician verbal prompting. MET (11/23/16) 2. The patient will display 80% accuracy with structured word-finding tasks with mild clinician verbal prompting. 3. The patient will demonstrate 80% accuracy with sequencing of ADL tasks with minimal clinician verbal prompting. 4. The patient will complete structured deductive reasoning tasks with 80% accuracy and mild clinician cueing. 5. The patient will display 80% accuracy with oral motor exercises with mild clinician direct modeling. 6. The patient will demonstrate 80% accuracy with oral and lingual range of motion and strengthening exercises with mild clinician verbal cueing. Time Frame-STG: Three Weeks Speech [employer] Services Sales Representative Goals Skilled Nursing Goals 1. The patient will improve cognitive linguistic skills for increased function and safety with ADL's in the least restrictive setting. 2. The patient will tolerate the least restrictive diet without signs/symptoms of aspiration or laryngeal penetration. Time Frame: Four Weeks Speech-Plan Treatment Plan Speech Therapy Treatment Plan: Continue Plan of Care Continue skilled speech pathology for continued work towards expressive and receptive communication. Treatment Duration: Dec 27, 2016 Frequency: Modified Program (IRF) (Four to Five Treatment Sessions Per Week) Estimated Hrs Per Day: .5 hour per day Rehab Potential: Poor Safety Risks/Education Teaching Recipient: Patient Teaching Methods: Demonstration, Handout, Discussion Response to Teaching: Unable to Return Demonstration, Reinforcement Needed Education Topics Provided: Oral Motor Exercises, Labial and Lingual Strenghening Time Speech Therapy Time In: 08:00 Speech Therapy Time Out: 08:30 Total Billed Time: 30 Billed Treatment Time 1, DYST 1, SLTS (15 minutes each) PHILLY HAZEL Dec 06, 2016 09:38
--- NOTE | 2016-12-06 10:13 | Occupational Ther Daily Note ---
OT Current Status-Daily Note Subjective Pt alert, lying in bed. Pt agreed to therapy. Pt will open eyes when addressed. Mental Status/Objective Patient Orientation: Person, Non-Verbal/Aphasic Functional [place] Measure 0=Not Assessed/NA 4=Minimal Assistance 1=Total Assistance 5=Supervision or Setup 2=Maximal Assistance 6=Modified [place] 3=Moderate Assistance 7=Complete [place] Attachments: IV, Suprapubic Catheter ADL-Treatment PT/OT co-treated. PT worked on sitting balance, transfers and LE stretching. OT worked on dressing and UE stretching. Pt requires 2 person assist to don pants and shirt. Assist to turn side to side to place zoey sling then pt transferred to / with zoey lift. Transferred with zoey lift to therapy mat. Pt sat on therapy mat for sitting balance and leaning side to side to stretch trunk and wt bearing. Pt then laid down on therapy mat for LE stretching and UE stretching. Laying on mat pt stated that he was sick. Rolled pt on side and placed cold cloth on head. Transferred pt back to / with zoey lift then bed. UE stretch and massage while pt laying in bed. After therapy, Family present in room. Call light/phone. All needs met in room. Functional [place] Measure 0=Not Assessed/NA 4=Minimal Assistance 1=Total Assistance 5=Supervision or Setup 2=Maximal Assistance 6=Modified [place] 3=Moderate Assistance 7=Complete IndependenceIRFPAI Quality Coding Scale 6 Independent with activity with or without an assistive device 5 Patient requires set up or clean up by helper. Patient completes activity by themselves 4 Supervision or touching assist (CGA). [place] provide cues , steadying assist 3 The helper provides less than half the effort to complete the activity 2 The helper provides more than half the effort to complete the activity 1 Dependent. The helper does all the effort to complete an activity 7 Patient refused to complete or attempt activity 9 The patient did not perform the activity before the current illness or injury 88 Not attempted due to Medical conditions or safety concerns Upper Body (FIM): 1 Upper Body Dressing (QC): 1 Lower Body Dressing (FIM): 1 Lower Body Dressing (QC): 1 On/Off Footwear (QC): 1 OT Short Term Goals Short Term Goals Time Frame: Dec 06, 2016 Eating(FIM): 3 Grooming(FIM): 3 Bathing(FIM): 2 Upper Body Dressing(FIM): 2 Lower Body Dressing(FIM): 2 Toileting(FIM): 2 Transfers (B,C,W/C) (FIM): 2 Toilet/Commode Transfer(FIM): 2 Additional Short Term Goals: 1-Demonstrate ADL Tasks, 2-Verbalize Understanding , 3-ImproveStrength/Juanpablo 1=Demonstrate adherence to instructed precautions during ADL tasks. 2=Patient will verbalize/demonstrate understanding of assistive devices/ modifications for ADL. 3=Patient will improve strength/tolerance for activity to enable patient to perform ADL's. OT Particle Board Supervisor Goals Group Home Goals Time Frame: Dec 27, 2016 Eating (FIM): 4 Eating (QC): 4 Groomin Oral Hygiene (QC): 4 Bathing(FIM): 3 Shower/Bathe Self (QC): 3 Upper Body Dressing(FIM): 3 Upper Body Dressing (QC): 3 Lower Body Dressing(FIM): 3 Lower Body Dressing (QC): 3 On/Off Footwear (QC): 2 Toileting(FIM): 2 Toileting Hygiene (QC): 2 Transfers (B,C,W/C) (FIM): 2 Toilet/Commode Transfer(FIM): 2 Toilet/Commode Transfer (QC): 2 Shower Transfer(FIM): 2 Additional Goals: 1-Demonstrate ADL Tasks, 2-Verbalize Understanding, 3- ImproveStrength/Juanpablo 1=Demonstrate adherence to instructed precautions during ADL tasks. 2=Patient will verbalize/demonstrate understanding of assistive devices/ modifications for ADL. 3=Patient will improve strength/tolerance for activity to enable patient to perform ADL's. OT Education/Plan Discharge Recommendations Plan/Recommendations: Continue POC Treatment Plan/Plan of Care Patient would benefit from OT for education, treatment and training to promote independence in ADL's, mobility, safety and/or upper extremity function for ADL' s. Plan of Care: ADL Retraining, Caregiver Training, Cognitive Retraining, Functional Mobility, Group Exercise/Act as Ind, UE Funct Exercise/Act Treatment Duration: Dec 27, 2016 Frequency: At least 5 of 7 days/Wk (IRF) Estimated Hrs Per Day: 1.5 hours per day Agreement: Yes Rehab Potential: Poor Time/GCodes Start Time: 09:00 Stop Time: 10:15 Total Time Billed (hr/min): 75 Billed Treatment Time 1 visit-FA 5 (75 min) ZEKE CANNON Dec 06, 2016 10:13
--- NOTE | 2016-12-06 10:30 | Physical Therapy Daily Note ---
PT Daily Note-Current Subjective Patient in bed, needs dressed, no complaints of pain at rest. Will be co- treating with OT this morning. Appearance Patient in bed post tx, finishing up with OT. Mental Status Patient Orientation: Person Attachments: Suprapubic Catheter Transfers Functional [place] Measure 0=Not Assessed/NA 4=Minimal Assistance 1=Total Assistance 5=Supervision or Setup 2=Maximal Assistance 6=Modified [place] 3=Moderate Assistance 7=Complete IndependenceIRFPAI Quality Coding Scale 6 Independent with activity with or without an assistive device 5 Patient requires set up or clean up by helper. Patient completes activity by themselves 4 Supervision or touching assist (CGA). [place] provide cues , steadying assist 3 The helper provides less than half the effort to complete the activity 2 The helper provides more than half the effort to complete the activity 1 Dependent. The helper does all the effort to complete an activity 7 Patient refused to complete or attempt activity 9 The patient did not perform the activity before the current illness or injury 88 Not attempted due to Medical conditions or safety concerns Transfers (B, C, W/C) (FIM): 1 Scootin Rollin Supine to/from Sit: 1 Bed to/from Chair: 1 zoey for transfers Weight Bearing Right Lower Extremity: Right Non Weight Bearing Exercises bilateral lower extremity stretching of knee extension, dorsiflexion, and trunk rotation Treatments Patient in bed and has to be rolled several times to get dressed and get sling in/out. He was hoyered to his wheelchair and taken to gym and they hoyered to the therapy table. He then sat at the edge of the table to practiced sitting balance and limits of stability, leaning from side to side. His legs curled up underneath the table and he is not willing to try to extend his knees. Patient was they layed down and OT worked on UE stretching and PT worked on LE stretching. Then he was hoyered back to his wheelchair and then back to his bed. Assessment Current Status: Poor Progress No change in mobility, patient is unwilling to participate very much. PT Short Term Goals Short Term Goals Time Frame: Nov 30, 2016 Transfers (B,C,W/C) (FIM): 2 PT Group Home Goals Fur Cutter Goals PT Fur Cutter Goals Time Frame: Dec 14, 2016 Transfers (B,C,W/C) (FIM): 2 Sit to Lying (QC): 2 Lying-Sitting on Side/Bed(QC): 2 Rollin Roll Left to Right (QC): 2 Chair/Xyt-pw-Baybz Xfer(QC): 2 PT Plan Problem List Problem List: Activity Tolerance, Functional Strength, Safety, Balance, Transfer, Bed Mobility, ROM Treatment/Plan Treatment Plan: Continue Plan of Care Treatment Plan: Bed Mobility, Concurrent Therapy, Education, Functional Activity Juanpablo, Functional Strength, Group Therapy, Safety, Therapeutic Exercise , Transfers Treatment Duration: Dec 14, 2016 Frequency: At least 5 of 7 days/Wk (IRF) Estimated Hrs Per Day: 1.5 hours per day Patient and/or Family Agrees t: Yes Safety Risks/Education Patient Education: Transfer Techniques, Correct Positioning, Disease Process, Safety Issues Teaching Recipient: Patient Teaching Methods: Demonstration, Discussion Response to Teaching: Reinforcement Needed Time/GCodes Time In: 900 Time Out: 1000 Total Billed Treatment Time: 60 Total Billed Treatment 1 visit NM 15' EX 15' FA 30' Co-treated with OT for the whole 60'. PT worked on transfers, dressing, sitting balance and LE stretching. FREDDY TRIMBLE PT Dec 06, 2016 10:30
[2016-12-06] MEDS: IBUPROFEN TABLET 200 MG TAB PO PRN (17:06)
[2016-12-06 18:37] VITALS: BP 137/83
[2016-12-07] MEDS: NS IV SCH ×4 (03:42→21:14)
[2016-12-07] MEDS: AMPICILLIN IV SCH ×4 (03:42→21:14)
[2016-12-07] MEDS: CATHETER FLUSH 10 ML SYR IV PRN (03:43)
[2016-12-07] MEDS: PANTOPRAZOLE 40 MG (PROTONIX) TAB PO SCH (06:44)
[2016-12-07] MEDS: MULTIVIT W/MINERALS TAB (THERAGRAN M) PO SCH (06:44)
[2016-12-07 06:45] VITALS: BP 121/82
[2016-12-07] MEDS: RIVAROXABAN 20 MG TABLET (XARELTO) PO SCH (08:12)
[2016-12-07] MEDS: LEVETIRACETAM 500 MG (KEPPRA) TAB PO SCH ×2 (08:12→21:14)
[2016-12-07] MEDS: LACTOBACILLUS Acidoph/Bulgar (LACTINEX/FLORANEX) TAB PO SCH (08:12)
[2016-12-07] MEDS: DOCUSATE SODIUM 100 MG (COLACE) CAP PO SCH ×2 (08:12→21:14)
[2016-12-07] MEDS: GABAPENTIN 300 MG (NEURONTIN) CAP PO SCH ×3 (08:12→21:14)
[2016-12-07] MEDS: ALFUZOSIN HCL 10 MG TAB (UROXATRAL) PO SCH (08:12)
[2016-12-07] MEDS: POLYETHYLENE GLYCOL 17 GM (MIRALAX) PACK PO SCH (08:12)
[2016-12-07] MEDS: BACLOFEN 10 MG (LIORESAL) TAB PO SCH ×3 (08:12→21:14)
--- NOTE | 2016-12-07 08:12 | Progress Note (SOAP) ---
Subjective Time Seen by Provider: 08:10 Subjective/Events-last exam patient seen surgeon yesterday. Patient to have [id number] amputation. TBI. Current fracture. Osteomyelitis of leg Objective Exam Vital Signs Date Time Temp Pulse Resp B/P (MAP) Pulse Ox O2 Delivery O2 Flow Rate FiO2 12/07/16 06:45 96.9 80 16 121/82 95 Room Air 12/07/16 06:15 Room Air 12/06/16 21:00 Room Air 12/06/16 18:37 98.2 83 18 137/83 97 Room Air 12/06/16 09:00 Room Air Capillary Refill : General Appearance: No Apparent Distress, WD/WN Respiratory: Chest Non Tender, Lungs Clear, No Accessory Muscle Use, No Respiratory Distress Cardiovascular: Regular Rate, Rhythm, No Murmur Assessment/Plan Assessment/Plan Assess & Plan/Chief Complaint TBI. Osteomyelitis. Fractures. Patient feeling better today. . . Patient having blood in the urine to see urologist today. 11/27/16. TBI. Fractures. Patient voicing no complaints today. . 11/29/16. Osteomyelitis. Fractures. TBI. Patient more alert today.. . Patient speaking better. . 11/30/16. TBI. Osteomyelitis. Fractures. Patient states she's feeling better. Patient more alert. . 12/01/16. TBI. Osteomyelitis. Fractures. Patient resting comfortably. Patient more observant in his speech. . . tBI. Osteomyelitis. Fractures. Patient's blood tests look good today. Sedimentation rate slightly elevated at 20. . 12/05/16. Fractures. Osteomyelitis. TBI. Patient feeling better today. Patient eating well. . 12/06/16. TBI. Fractures. Osteomyelitis. Hypertension. Patient still needs a lot of work. . 12/07/16. CBI. Fractures. Osteomyelitis. Patient to have [id number] amputation by surgeon. Contractures Clinical Quality Measures DVT/VTE Risk/Contraindication: Risk Factor Score Per Nursin RFS Level Per Nursing on Admit: 3=High JOON WALTER DO Dec 07, 2016 08:12
[2016-12-07] MEDS: OXYBUTYNIN 10 MG PO SCH ×3 (08:13→21:15)
--- NOTE | 2016-12-07 09:38 | Speech Therapy Daily Note ---
Speech Daily Progress Note Subjective Date Seen by Provider: Dec 07, 2016 Time Seen by Provider: 08:15 The patient was seated upright in bed upon entrance. The patient requested to be reclined, therefore, the clinician reclined the patient. The patient's girlfriend was present at bedside. Objective To note: The patient required maximum, consistent verbal cueing and encouragement for limited participation in the speech pathology session. The patient frequently perseverates on topics, requiring maximum cueing to return to task. The patient continuously stated, "that's all I got," "that's it." Oral Motor Exercises: Oral motor (labial and lingual) exercises were continued on this date with limited participation and accuracy, as well as, maximum verbal prompting. Oropharyngeal Strengthening Exercises: Swallowing exercises were continued on this date. The clinician attempted an effortful swallow, base of tongue retraction, and adductor exercises. The patient performed limited repetitions ( five maximum) of exercises with maximum clinician cueing and prompting. While the patient displayed mildly improved participation, consistent verbal prompting remained required. Assessment Assessment Current Status: Poor Progress Treatment Plan Continue Plan of Care Communication Comprehension: 3 Expression: 2 Social Cognition Social Interaction: 1 Problem Solvin Memory: 2 Speech Short Term Goals Short Term Goals Short Term Goals 1. The patient will complete a full cognitive evaluation with mild clinician verbal prompting. MET (11/23/16) 2. The patient will display 80% accuracy with structured word-finding tasks with mild clinician verbal prompting. 3. The patient will demonstrate 80% accuracy with sequencing of ADL tasks with minimal clinician verbal prompting. 4. The patient will complete structured deductive reasoning tasks with 80% accuracy and mild clinician cueing. 5. The patient will display 80% accuracy with oral motor exercises with mild clinician direct modeling. 6. The patient will demonstrate 80% accuracy with oral and lingual range of motion and strengthening exercises with mild clinician verbal cueing. Time Frame-STG: Three Weeks Speech Alf Goals Alf Goals 1. The patient will improve cognitive linguistic skills for increased function and safety with ADL's in the least restrictive setting. 2. The patient will tolerate the least restrictive diet without signs/symptoms of aspiration or laryngeal penetration. Time Frame: Four Weeks Speech-Plan Treatment Plan Speech Therapy Treatment Plan: Continue Plan of Care Continue skilled speech pathology for improved oral pharyngeal strengthening. Treatment Duration: Dec 27, 2016 Frequency: Modified Program (IRF) (Four to Five Treatment Sessions Per Week) Estimated Hrs Per Day: .5 hour per day Rehab Potential: Poor Safety Risks/Education Teaching Recipient: Patient Teaching Methods: Demonstration, Handout, Discussion Response to Teaching: Reinforcement Needed Education Topics Provided: Oral Pharyngeal Exercises Time Speech Therapy Time In: 08:15 Speech Therapy Time Out: 08:45 Total Billed Time: 30 Billed Treatment Time 1, SLJOHANNE 1, PHILLY SANCHEZ Dec 07, 2016 09:38
--- NOTE | 2016-12-07 09:56 | Physical Therapy Daily Note ---
PT Daily Note-Current Subjective Patient in bed pre tx, agrees to PT, no complaints of pain at rest. Will be co- treating with OT today. Appearance Patient in bed post tx with nurse call, family in the room. Mental Status Patient Orientation: Person Attachments: Suprapubic Catheter Transfers Functional [place] Measure 0=Not Assessed/NA 4=Minimal Assistance 1=Total Assistance 5=Supervision or Setup 2=Maximal Assistance 6=Modified [place] 3=Moderate Assistance 7=Complete IndependenceIRFPAI Quality Coding Scale 6 Independent with activity with or without an assistive device 5 Patient requires set up or clean up by helper. Patient completes activity by themselves 4 Supervision or touching assist (CGA). [place] provide cues , steadying assist 3 The helper provides less than half the effort to complete the activity 2 The helper provides more than half the effort to complete the activity 1 Dependent. The helper does all the effort to complete an activity 7 Patient refused to complete or attempt activity 9 The patient did not perform the activity before the current illness or injury 88 Not attempted due to Medical conditions or safety concerns Transfers (B, C, W/C) (FIM): 1 Scootin Rollin Bed to/from Chair: 1 Weight Bearing Right Lower Extremity: Right Non Weight Bearing Treatments Patient was undressed in bed and rolled to clean BM and rolled again to get sling underneath him, and then transferred to his wheelchair via zoey. He was then taken to shower room and hoyered to shower chair, showered, and they hoyered back to his wheelchair, hoyered to back to bed, cleaned again for BM, and then dressed. OT worked on dressing bathing, transfers, PT worked on dressing, transfers, sitting balance, and positioning. Assessment Current Status: Poor Progress no change in mobility PT Short Term Goals Short Term Goals Time Frame: Nov 30, 2016 Transfers (B,C,W/C) (FIM): 2 PT Auto Wash Buffer Goals Auto Wash Buffer Goals PT Residential Goals Time Frame: Dec 14, 2016 Transfers (B,C,W/C) (FIM): 2 Sit to Lying (QC): 2 Lying-Sitting on Side/Bed(QC): 2 Rollin Roll Left to Right (QC): 2 Chair/Ros-ir-Zrhhu Xfer(QC): 2 PT Plan Problem List Problem List: Activity Tolerance, Functional Strength, Safety, Balance, Transfer, Bed Mobility, ROM Treatment/Plan Treatment Plan: Continue Plan of Care Treatment Plan: Bed Mobility, Concurrent Therapy, Education, Functional Activity Juanpablo, Functional Strength, Group Therapy, Safety, Therapeutic Exercise , Transfers Treatment Duration: Dec 14, 2016 Frequency: At least 5 of 7 days/Wk (IRF) Estimated Hrs Per Day: 1.5 hours per day Patient and/or Family Agrees t: Yes Safety Risks/Education Patient Education: Transfer Techniques, Correct Positioning, Safety Issues Teaching Recipient: Patient Teaching Methods: Demonstration, Discussion Response to Teaching: Reinforcement Needed Time/GCodes Time In: 900 Time Out: 1000 Total Billed Treatment Time: 60 Total Billed Treatment 1 visit FA 60' co-treated with OT for the whole 60' FREDDY TRIMBLE PT Dec 07, 2016 09:56
--- NOTE | 2016-12-07 10:12 | Occupational Ther Daily Note ---
OT Current Status-Daily Note Subjective Pt alert, lying in bed. Pt's girlfriend in room. Pt agreed to shower. No c/o pain at this time. Mental Status/Objective Patient Orientation: Person, Unable to Assess Functional [place] Measure 0=Not Assessed/NA 4=Minimal Assistance 1=Total Assistance 5=Supervision or Setup 2=Maximal Assistance 6=Modified [place] 3=Moderate Assistance 7=Complete [place] Attachments: IV, Suprapubic Catheter ADL-Treatment Pt assists with rolling by reaching towards bedrail with R UE/LE then requires assistance to roll other side. Transfer from bed to w/c with zoey lift then to shower chair with zoey lift. Pt was able to dry face and chest with R UE. Assist to complete all other bathing and dressing. Pt transferred back to bed with zoey lift. Girlfriend present in room. After therapy, pt lying in bed. All needs met in room. Functional [place] Measure 0=Not Assessed/NA 4=Minimal Assistance 1=Total Assistance 5=Supervision or Setup 2=Maximal Assistance 6=Modified [place] 3=Moderate Assistance 7=Complete IndependenceIRFPAI Quality Coding Scale 6 Independent with activity with or without an assistive device 5 Patient requires set up or clean up by helper. Patient completes activity by themselves 4 Supervision or touching assist (CGA). [place] provide cues , steadying assist 3 The helper provides less than half the effort to complete the activity 2 The helper provides more than half the effort to complete the activity 1 Dependent. The helper does all the effort to complete an activity 7 Patient refused to complete or attempt activity 9 The patient did not perform the activity before the current illness or injury 88 Not attempted due to Medical conditions or safety concerns Bathing (FIM): 1 Shower/Bathe Self (QC): 1 Upper Body (FIM): 1 Upper Body Dressing (QC): 1 Lower Body Dressing (FIM): 1 Lower Body Dressing (QC): 1 OT Short Term Goals Short Term Goals Time Frame: Dec 06, 2016 Eating(FIM): 3 Grooming(FIM): 3 Bathing(FIM): 2 Upper Body Dressing(FIM): 2 Lower Body Dressing(FIM): 2 Toileting(FIM): 2 Transfers (B,C,W/C) (FIM): 2 Toilet/Commode Transfer(FIM): 2 Additional Short Term Goals: 1-Demonstrate ADL Tasks, 2-Verbalize Understanding , 3-ImproveStrength/Juanpablo 1=Demonstrate adherence to instructed precautions during ADL tasks. 2=Patient will verbalize/demonstrate understanding of assistive devices/ modifications for ADL. 3=Patient will improve strength/tolerance for activity to enable patient to perform ADL's. OT Halfway Goals Halfway Goals Time Frame: Dec 27, 2016 Eating (FIM): 4 Eating (QC): 4 Groomin Oral Hygiene (QC): 4 Bathing(FIM): 3 Shower/Bathe Self (QC): 3 Upper Body Dressing(FIM): 3 Upper Body Dressing (QC): 3 Lower Body Dressing(FIM): 3 Lower Body Dressing (QC): 3 On/Off Footwear (QC): 2 Toileting(FIM): 2 Toileting Hygiene (QC): 2 Transfers (B,C,W/C) (FIM): 2 Toilet/Commode Transfer(FIM): 2 Toilet/Commode Transfer (QC): 2 Shower Transfer(FIM): 2 Additional Goals: 1-Demonstrate ADL Tasks, 2-Verbalize Understanding, 3- ImproveStrength/Juanpablo 1=Demonstrate adherence to instructed precautions during ADL tasks. 2=Patient will verbalize/demonstrate understanding of assistive devices/ modifications for ADL. 3=Patient will improve strength/tolerance for activity to enable patient to perform ADL's. OT Education/Plan Discharge Recommendations Plan/Recommendations: Continue POC Treatment Plan/Plan of Care Patient would benefit from OT for education, treatment and training to promote independence in ADL's, mobility, safety and/or upper extremity function for ADL' s. Plan of Care: ADL Retraining, Caregiver Training, Cognitive Retraining, Functional Mobility, Group Exercise/Act as Ind, UE Funct Exercise/Act Treatment Duration: Dec 27, 2016 Frequency: At least 5 of 7 days/Wk (IRF) Estimated Hrs Per Day: 1.5 hours per day Agreement: Yes Rehab Potential: Poor Time/GCodes Start Time: 09:00 Stop Time: 10:00 Total Time Billed (hr/min): 60 Billed Treatment Time 1 visit-ADL 4 (60 min) ZEKE CANNON Dec 07, 2016 10:12
--- NOTE | 2016-12-07 13:59 | Physical Therapy Daily Note ---
PT Daily Note-Current Subjective Throughout PT session pt states, "That hurts." "Let me lay down." Transfers Functional [place] Measure 0=Not Assessed/NA 4=Minimal Assistance 1=Total Assistance 5=Supervision or Setup 2=Maximal Assistance 6=Modified [place] 3=Moderate Assistance 7=Complete IndependenceIRFPAI Quality Coding Scale 6 Independent with activity with or without an assistive device 5 Patient requires set up or clean up by helper. Patient completes activity by themselves 4 Supervision or touching assist (CGA). [place] provide cues , steadying assist 3 The helper provides less than half the effort to complete the activity 2 The helper provides more than half the effort to complete the activity 1 Dependent. The helper does all the effort to complete an activity 7 Patient refused to complete or attempt activity 9 The patient did not perform the activity before the current illness or injury 88 Not attempted due to Medical conditions or safety concerns Weight Bearing Right Lower Extremity: Right Non Weight Bearing Treatments While in supine, passive stretching B LE's to focus on hip/knee extension and trunk rotation to neutral (as pt is windswept to the right). Prolonged stretching of both limbs for approx 15 minutes. Pt then transferred to sit up at EOB with dep assist of 2. Sat EOB x 15 minutes with OT focusing on UE placement, thoracic and cervical posture while PT addressed core activation, and LE placement on the floor. Worked on prolonged stretching of knee extension (only able to achieve 90 degrees and worked on foot flat on the floor with the left LE--unable to place heel on the floor but with stretch, it did relax 5-6 degrees. Co treat with OT as he requires skill of 2 clinicians to work on posture, positioning and to maintain the body position with cues and tactile cues/placment for optimal positioning. Pt did tolerate sitting EOB but does request to lie back down often. Post treatment, pt tilted to his left. Pt is dep for bed mobility and scooting/positioning. Many pillows used for leg placement as well as skin protection. In bed post treatment with mother present. Assessment Pt is dependent for all care and mobiliyt. Prolonged stretching perfromed but his tone pulls him back to position as soon as stretch stops. PT Short Term Goals Short Term Goals Time Frame: Nov 30, 2016 Transfers (B,C,W/C) (FIM): 2 PT Erp Implementation Consultant Goals Jail Goals PT Jail Goals Time Frame: Dec 14, 2016 Transfers (B,C,W/C) (FIM): 2 Sit to Lying (QC): 2 Lying-Sitting on Side/Bed(QC): 2 Rollin Roll Left to Right (QC): 2 Chair/Rsz-di-Gjxmn Xfer(QC): 2 PT Plan Problem List Problem List: Activity Tolerance, Functional Strength, Safety Treatment/Plan Treatment Plan: Continue Plan of Care Treatment Plan: Bed Mobility, Concurrent Therapy, Education, Functional Activity Juanpablo, Functional Strength, Group Therapy, Safety, Therapeutic Exercise , Transfers Treatment Duration: Dec 14, 2016 Frequency: At least 5 of 7 days/Wk (IRF) Estimated Hrs Per Day: 1.5 hours per day Patient and/or Family Agrees t: Yes Time/GCodes Time In: 1254 Time Out: 1330 Total Billed Treatment Time: 36 Total Billed Treatment visit FA 36 ZEKE DUMONT PT Dec 07, 2016 13:59
--- NOTE | 2016-12-07 14:19 | Occupational Ther Daily Note ---
OT Current Status-Daily Note Subjective Pt alert, lying in bed. Pt's mother in room. Pt agreed to therapy. No c/o pain when laying still, c/o pain with stretching and movement. Mental Status/Objective Patient Orientation: Person, Non-Verbal/Aphasic Functional [place] Measure 0=Not Assessed/NA 4=Minimal Assistance 1=Total Assistance 5=Supervision or Setup 2=Maximal Assistance 6=Modified [place] 3=Moderate Assistance 7=Complete [place] ADL-Treatment Functional [place] Measure 0=Not Assessed/NA 4=Minimal Assistance 1=Total Assistance 5=Supervision or Setup 2=Maximal Assistance 6=Modified [place] 3=Moderate Assistance 7=Complete IndependenceIRFPAI Quality Coding Scale 6 Independent with activity with or without an assistive device 5 Patient requires set up or clean up by helper. Patient completes activity by themselves 4 Supervision or touching assist (CGA). [place] provide cues , steadying assist 3 The helper provides less than half the effort to complete the activity 2 The helper provides more than half the effort to complete the activity 1 Dependent. The helper does all the effort to complete an activity 7 Patient refused to complete or attempt activity 9 The patient did not perform the activity before the current illness or injury 88 Not attempted due to Medical conditions or safety concerns Other Treatment Co-treat with PT for therapy session. PT worked on sitting balance and LE stretching. OT worked on wt bearing during sitting on EOB and UE stretching. Pt was able to place R UE on EOB for wt bearing. FERREIRA supported pt's back while sitting EOB and moving L UE forward and backward to increase ROM in L shldr. Pt dependent with going from supine to sitting EOB and back. After therapy, pt lying on L side with mother present in room. All needs met in room. OT Short Term Goals Short Term Goals Time Frame: Dec 06, 2016 Eating(FIM): 3 Grooming(FIM): 3 Bathing(FIM): 2 Upper Body Dressing(FIM): 2 Lower Body Dressing(FIM): 2 Toileting(FIM): 2 Transfers (B,C,W/C) (FIM): 2 Toilet/Commode Transfer(FIM): 2 Additional Short Term Goals: 1-Demonstrate ADL Tasks, 2-Verbalize Understanding , 3-ImproveStrength/Juanpablo 1=Demonstrate adherence to instructed precautions during ADL tasks. 2=Patient will verbalize/demonstrate understanding of assistive devices/ modifications for ADL. 3=Patient will improve strength/tolerance for activity to enable patient to perform ADL's. OT Reel System Operator Goals Senior Living Goals Time Frame: Dec 27, 2016 Eating (FIM): 4 Eating (QC): 4 Groomin Oral Hygiene (QC): 4 Bathing(FIM): 3 Shower/Bathe Self (QC): 3 Upper Body Dressing(FIM): 3 Upper Body Dressing (QC): 3 Lower Body Dressing(FIM): 3 Lower Body Dressing (QC): 3 On/Off Footwear (QC): 2 Toileting(FIM): 2 Toileting Hygiene (QC): 2 Transfers (B,C,W/C) (FIM): 2 Toilet/Commode Transfer(FIM): 2 Toilet/Commode Transfer (QC): 2 Shower Transfer(FIM): 2 Additional Goals: 1-Demonstrate ADL Tasks, 2-Verbalize Understanding, 3- ImproveStrength/Juanpablo 1=Demonstrate adherence to instructed precautions during ADL tasks. 2=Patient will verbalize/demonstrate understanding of assistive devices/ modifications for ADL. 3=Patient will improve strength/tolerance for activity to enable patient to perform ADL's. OT Education/Plan Discharge Recommendations Plan/Recommendations: Continue POC Treatment Plan/Plan of Care Patient would benefit from OT for education, treatment and training to promote independence in ADL's, mobility, safety and/or upper extremity function for ADL' s. Plan of Care: ADL Retraining, Caregiver Training, Cognitive Retraining, Functional Mobility, Group Exercise/Act as Ind, UE Funct Exercise/Act Treatment Duration: Dec 27, 2016 Frequency: At least 5 of 7 days/Wk (IRF) Estimated Hrs Per Day: 1.5 hours per day Agreement: Yes Rehab Potential: Poor Time/GCodes Start Time: 13:00 Stop Time: 13:30 Total Time Billed (hr/min): 30 Billed Treatment Time 1 visit-FA 2 (30 min) Co-treat with PT all 30 min ZEKE CANNON Dec 07, 2016 14:19
[2016-12-07] MEDS: MILK OF MAGNESIA 400 MG/5 ML 30 ML UDC PO PRN (16:17)
[2016-12-07 16:38] VITALS: BP 130/78
--- NOTE | 2016-12-07 21:49 | PM & R (SOAP) Progress Note ---
Subjective Time Seen by Provider: 20:00 Subjective/Events-last exam Patient was seen in his room this evening Somnolent Patient mother concerned that Gabapentin is too high a dose Patient did participate in Stretching exercises with PT/OT today May need to cut back on current Gabapentin dose Objective Exam Last Set of Vital Signs Vital Signs Date Time Temp Pulse Resp B/P (MAP) Pulse Ox O2 Delivery O2 Flow Rate FiO2 12/07/16 19:22 Room Air 12/07/16 16:38 98.8 89 18 130/78 97 Capillary Refill : I&O Intake and Output 12/07/16 23:59 Intake Total 1300 ml Output Total 1150 ml Balance 150 ml Intake Oral 1100 ml IV Total 200 ml Output Urine Total 1150 ml General: Cooperative, No Acute Distress HEENT: Mucous Memb Moist/[place] Neck: Supple, No JVD Lungs: Clear to Auscultation Heart: Regular Rate Abdomen: Normal Bowel Sounds, Soft, No Tenderness, Other (Suprapubic catheter in place) Extremities: Other (Plus contractures and rt ankle dressed) Neuro: Other (WEakness and contractures . 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 Treat constipation-done Patient scheduled to see his surgeon today at OSH in [facility] re osteo rt ankle Team Conference held yesterday- see report for full functional update and POC and ELOS Pt back from seeing Surgeon at Outside Facility yesterday in [facility] -will follow-up with RN and SW re his recs Family Conference to be held tomorrow BEAU MA MD Dec 07, 2016 21:49
[2016-12-08] MEDS: NS IV SCH ×4 (02:48→20:40)
[2016-12-08] MEDS: AMPICILLIN IV SCH ×4 (02:48→20:40)
[2016-12-08 05:00] VITALS: BP 118/78
[2016-12-08] MEDS: HYDROcodone/APAP 5 MG/325 MG (LORTAB) TAB PO PRN (05:59)
[2016-12-08] MEDS: PANTOPRAZOLE 40 MG (PROTONIX) TAB PO SCH (06:00)
[2016-12-08] MEDS: MULTIVIT W/MINERALS TAB (THERAGRAN M) PO SCH (06:01)
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
[2016-12-08] MEDS: LEVETIRACETAM 500 MG (KEPPRA) TAB PO SCH ×2 (08:50→20:40)
[2016-12-08] MEDS: BACLOFEN 10 MG (LIORESAL) TAB PO SCH ×3 (08:50→20:40)
[2016-12-08] MEDS: LACTOBACILLUS Acidoph/Bulgar (LACTINEX/FLORANEX) TAB PO SCH (08:50)
[2016-12-08] MEDS: GABAPENTIN 300 MG (NEURONTIN) CAP PO SCH ×3 (08:50→20:40)
[2016-12-08] MEDS: RIVAROXABAN 20 MG TABLET (XARELTO) PO SCH (08:50)
[2016-12-08] MEDS: DOCUSATE SODIUM 100 MG (COLACE) CAP PO SCH ×2 (08:50→19:14)
[2016-12-08] MEDS: ALFUZOSIN HCL 10 MG TAB (UROXATRAL) PO SCH (08:50)
[2016-12-08] MEDS: OXYBUTYNIN 10 MG PO SCH ×3 (08:51→20:40)
[2016-12-08] MEDS: POLYETHYLENE GLYCOL 17 GM (MIRALAX) PACK PO SCH (08:51)
--- NOTE | 2016-12-08 10:14 | Physical Therapy Daily Note ---
PT Daily Note-Current Subjective Patient in bed pre tx, has no complaints of pain at rest. Will be co-treating with OT this morning. Appearance Patient in bed post tx with nurse call, on left side, pillows between legs. Mental Status Patient Orientation: Person Attachments: Suprapubic Catheter Transfers Functional [place] Measure 0=Not Assessed/NA 4=Minimal Assistance 1=Total Assistance 5=Supervision or Setup 2=Maximal Assistance 6=Modified [place] 3=Moderate Assistance 7=Complete IndependenceIRFPAI Quality Coding Scale 6 Independent with activity with or without an assistive device 5 Patient requires set up or clean up by helper. Patient completes activity by themselves 4 Supervision or touching assist (CGA). [place] provide cues , steadying assist 3 The helper provides less than half the effort to complete the activity 2 The helper provides more than half the effort to complete the activity 1 Dependent. The helper does all the effort to complete an activity 7 Patient refused to complete or attempt activity 9 The patient did not perform the activity before the current illness or injury 88 Not attempted due to Medical conditions or safety concerns Transfers (B, C, W/C) (FIM): 1 Scootin Rollin Supine to/from Sit: 1 Bed to/from Chair: 1 zoey for transfers Weight Bearing Right Lower Extremity: Right Non Weight Bearing Treatments Patient needed to get dressed, was rolled many times for dressing and to get sling underneath him. He was hoyered to his wheelchair and taken to the therapy gym. He was then hoyered to therapy table and sat with the assist of 3 at the edge and performed sitting balance training and ROM. Patient had poor motivation during this whole treatment and constantly asked to go back to bed. He has extremely poor motivation and will not even try to assist with sitting balance going from side to side even when starting from the side in probably a fairly uncomfortable position. At one point janusz threw up on himself and we had to get him back to his wheelchair and then the bed via zoey, changed clothes (much rolling in bed), and positioned back in bed. Assessment Current Status: Poor Progress no change in mobility, poor motivation PT Short Term Goals Short Term Goals Time Frame: Nov 30, 2016 Transfers (B,C,W/C) (FIM): 2 PT Copy Preparer Goals Copy Preparer Goals PT Copy Preparer Goals Time Frame: Dec 14, 2016 Transfers (B,C,W/C) (FIM): 2 Sit to Lying (QC): 2 Lying-Sitting on Side/Bed(QC): 2 Rollin Roll Left to Right (QC): 2 Chair/Rgs-gm-Qeyge Xfer(QC): 2 PT Plan Problem List Problem List: Activity Tolerance, Functional Strength, Safety, Balance, Transfer, Bed Mobility, ROM Treatment/Plan Treatment Plan: Continue Plan of Care Treatment Plan: Bed Mobility, Concurrent Therapy, Education, Functional Activity Juanpablo, Functional Strength, Group Therapy, Safety, Therapeutic Exercise , Transfers Treatment Duration: Dec 14, 2016 Frequency: At least 5 of 7 days/Wk (IRF) Estimated Hrs Per Day: 1.5 hours per day Patient and/or Family Agrees t: Yes Safety Risks/Education Patient Education: Transfer Techniques, Correct Positioning, W/C Management, Safety Issues Teaching Recipient: Patient Teaching Methods: Demonstration, Discussion Response to Teaching: Reinforcement Needed Time/GCodes Time In: 900 Time Out: 1000 Total Billed Treatment Time: 60 Total Billed Treatment 1 visit FA 60' Co-treated with OT for the whole 60'. OT worked on dressing, transfers, UE ROM and sitting balance while PT worked on LE ROM, sitting balance, bed mobility and transfers FREDDY TRIMBLE PT Dec 08, 2016 10:14
--- NOTE | 2016-12-08 10:19 | Speech Therapy Daily Note ---
Speech Daily Progress Note Subjective Date Seen by Provider: Dec 08, 2016 Time Seen by Provider: 08:15 The patient was laying in bed, asleep upon entrance. To encourage wakefulness and participation, the patient was positioned upright in bed and the lights were turned on. The patient greeted the clinician and was agreeable to participation in the language therapy on this date. Objective Word Finding: Adding to a Category: The patient was provided three items which belong to a specific category. The patient was asked to name the category and provide an additional item. The patient displayed limited accuracy and poor motivation and participation. Maximum verbal clinician cueing (mostly for encouragement) was provided consistently throughout the session. The patient would continue to state, "I don't know", "that's it," and "that's all I got." To note: The patient continues to display poor motivation and participation through therapy tasks. The patient answered five word-finding questions prior to refusing treatment, closing his eyes, and turning away from the clinician. Assessment Assessment Current Status: Poor Progress Communication Comprehension: 2 Expression: 1 Social Cognition Social Interaction: 1 Problem Solvin Memory: 2 Speech Short Term Goals Short Term Goals Short Term Goals 1. The patient will complete a full cognitive evaluation with mild clinician verbal prompting. MET (11/23/16) 2. The patient will display 80% accuracy with structured word-finding tasks with mild clinician verbal prompting. 3. The patient will demonstrate 80% accuracy with sequencing of ADL tasks with minimal clinician verbal prompting. 4. The patient will complete structured deductive reasoning tasks with 80% accuracy and mild clinician cueing. 5. The patient will display 80% accuracy with oral motor exercises with mild clinician direct modeling. 6. The patient will demonstrate 80% accuracy with oral and lingual range of motion and strengthening exercises with mild clinician verbal cueing. Time Frame-STG: Three Weeks Speech Manager Cost Goals Jail Goals 1. The patient will improve cognitive linguistic skills for increased function and safety with ADL's in the least restrictive setting. 2. The patient will tolerate the least restrictive diet without signs/symptoms of aspiration or laryngeal penetration. Time Frame: Four Weeks Speech-Plan Treatment Plan Speech Therapy Treatment Plan: Continue Plan of Care Continue skilled speech pathology in attempts to improve functional expressive and receptive communication. Treatment Duration: Dec 27, 2016 Frequency: Modified Program (IRF) (Four to Five Treatment Sessions Per Week) Estimated Hrs Per Day: .5 hour per day Rehab Potential: Poor Safety Risks/Education Teaching Recipient: Patient Teaching Methods: Discussion Response to Teaching: Reinforcement Needed Education Topics Provided: Importance of Progression and Participation in Therapy, Word-Finding Strategies Time Speech Therapy Time In: 08:15 Speech Therapy Time Out: 08:45 Total Billed Time: 30 Billed Treatment Time 1ELMO ELIZABETH ST Dec 08, 2016 10:19
--- NOTE | 2016-12-08 10:22 | PM & R (SOAP) Progress Note ---
Subjective Time Seen by Provider: 08:10 Subjective/Events-last exam Patient was seen in his room this AM Patients contratures improving with PROM exercises with PT/OT but little functional gains made unfortunately Patient Surgeon considering a rt AKA for tratment of osteo of rt ankle Family Conference to be held later today Patient does not appear to be oversedated from meds.Patient remains fairly dependent Objective Exam Last Set of Vital Signs Vital Signs Date Time Temp Pulse Resp B/P (MAP) Pulse Ox O2 Delivery O2 Flow Rate FiO2 12/08/16 07:59 96 Room Air 12/08/16 05:00 99.4 92 14 118/78 Capillary Refill : I&O Intake and Output 12/09/16 00:00 Intake Total 300 ml Output Total 450 ml Balance -150 ml Intake Oral 200 ml IV Total 100 ml Output Urine Total 450 ml General: Cooperative, No Acute Distress HEENT: Mucous Memb Moist/[place] Neck: Supple, No JVD Lungs: Clear to Auscultation Heart: Regular Rate Abdomen: Normal Bowel Sounds, Soft, No Tenderness, Other (Suprapubic catheter in place) Extremities: Other (Plus contractures and rt ankle dressed) Neuro: Other (WEakness and contractures . 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 Treat constipation-done Family Conference to be held later today-See report for Updated POC F/U with SW re plans for possible rt BEAU AUGUSTIN MD Dec 08, 2016 10:22
[2016-12-08] MEDS: MILK OF MAGNESIA 400 MG/5 ML 30 ML UDC PO PRN (11:15)
--- NOTE | 2016-12-08 13:38 | Physical Therapy Daily Note ---
PT Daily Note-Current Subjective Patient in bed pre tx, has no complaints of pain at rest. Will be co-treating with OT for bed mobility, sitting balance, and ROM Appearance Patient in bed post tx with nurse call, on left side with pillow support of legs , has had a BM, nursing notified. Mental Status Patient Orientation: Person Attachments: Suprapubic Catheter Transfers Functional [place] Measure 0=Not Assessed/NA 4=Minimal Assistance 1=Total Assistance 5=Supervision or Setup 2=Maximal Assistance 6=Modified [place] 3=Moderate Assistance 7=Complete IndependenceIRFPAI Quality Coding Scale 6 Independent with activity with or without an assistive device 5 Patient requires set up or clean up by helper. Patient completes activity by themselves 4 Supervision or touching assist (CGA). [place] provide cues , steadying assist 3 The helper provides less than half the effort to complete the activity 2 The helper provides more than half the effort to complete the activity 1 Dependent. The helper does all the effort to complete an activity 7 Patient refused to complete or attempt activity 9 The patient did not perform the activity before the current illness or injury 88 Not attempted due to Medical conditions or safety concerns Transfers (B, C, W/C) (FIM): 1 Scootin Rollin Supine to/from Sit: 1 Patient was dependent for sitting at the edge of the bed and for bed mobility. Weight Bearing Right Lower Extremity: Right Non Weight Bearing Treatments Patient was sat at the edge of the bed by therapists and he worked on sitting balance by PT while OT worked on positioning, he was then layed down and PT worked on LE stretching/ROM while OT worked on UE stretching Assessment Current Status: Poor Progress No change in mobility, patient has poor motivation and repeated over and over that he wanted to lay down. PT Short Term Goals Short Term Goals Time Frame: Nov 30, 2016 Transfers (B,C,W/C) (FIM): 2 PT Residential Goals Supply Chain Tech Goals PT Supply Chain Tech Goals Time Frame: Dec 14, 2016 Transfers (B,C,W/C) (FIM): 2 Sit to Lying (QC): 2 Lying-Sitting on Side/Bed(QC): 2 Rollin Roll Left to Right (QC): 2 Chair/Qjp-vg-Bczye Xfer(QC): 2 PT Plan Problem List Problem List: Activity Tolerance, Functional Strength, Safety, Balance, Transfer, Bed Mobility, ROM Treatment/Plan Treatment Plan: Continue Plan of Care Treatment Plan: Bed Mobility, Concurrent Therapy, Education, Functional Activity Juanpablo, Functional Strength, Group Therapy, Safety, Therapeutic Exercise , Transfers Treatment Duration: Dec 14, 2016 Frequency: At least 5 of 7 days/Wk (IRF) Estimated Hrs Per Day: 1.5 hours per day Patient and/or Family Agrees t: Yes Safety Risks/Education Patient Education: Transfer Techniques, Correct Positioning, Safety Issues Teaching Recipient: Patient Teaching Methods: Demonstration, Discussion Response to Teaching: Reinforcement Needed Time/GCodes Time In: 1300 Time Out: 1330 Total Billed Treatment Time: 30 Total Billed Treatment 1 visit NM 15' EX 15' FREDDY TRIMBLE PT Dec 08, 2016 13:38
--- NOTE | 2016-12-08 14:22 | Occupational Ther Daily Note ---
OT Current Status-Daily Note Subjective Pt sleeping in bed, woke to name. Pt agreed to therapy with thumbs up. No c/o pain at this time. Mental Status/Objective Patient Orientation: Person, Unable to Assess Functional [place] Measure 0=Not Assessed/NA 4=Minimal Assistance 1=Total Assistance 5=Supervision or Setup 2=Maximal Assistance 6=Modified [place] 3=Moderate Assistance 7=Complete [place] Attachments: Suprapubic Catheter ADL-Treatment OT/PT co-treat today. OT worked on dressing, wt bearing through R/L UE while sitting and dynamic sitting. PT worked on transfers, sitting balance and LE stretching. Pt dependent with donning shirt and pants. Pt then was able to reach towards L bedrail and bring R LE over body to assist with turning toward L. Dependent with turning toward R side. Pt transferred with zoey lift to w/ c then to therapy mat. Pt sat on therapy mat with assist x2. Attempted to get pt to pull forward to sit up by self, no muscle initiation for independent sitting noted. Pt perseverated on 'don't hurt me' and lay me down'. When pt was laid down pt stated that he was feeling sick, sat pt back up and pt vomited. Pt was cleaned up, nrsg notified then transferred back to w/c and then to bed. Changed pt's clothing. After therapy, pt lying in bed with call light and phone in reach. All needs met in room. Functional [place] Measure 0=Not Assessed/NA 4=Minimal Assistance 1=Total Assistance 5=Supervision or Setup 2=Maximal Assistance 6=Modified [place] 3=Moderate Assistance 7=Complete IndependenceIRFPAI Quality Coding Scale 6 Independent with activity with or without an assistive device 5 Patient requires set up or clean up by helper. Patient completes activity by themselves 4 Supervision or touching assist (CGA). [place] provide cues , steadying assist 3 The helper provides less than half the effort to complete the activity 2 The helper provides more than half the effort to complete the activity 1 Dependent. The helper does all the effort to complete an activity 7 Patient refused to complete or attempt activity 9 The patient did not perform the activity before the current illness or injury 88 Not attempted due to Medical conditions or safety concerns OT Short Term Goals Short Term Goals Time Frame: Dec 06, 2016 Eating(FIM): 3 Grooming(FIM): 3 Bathing(FIM): 2 Upper Body Dressing(FIM): 2 Lower Body Dressing(FIM): 2 Toileting(FIM): 2 Transfers (B,C,W/C) (FIM): 2 Toilet/Commode Transfer(FIM): 2 Additional Short Term Goals: 1-Demonstrate ADL Tasks, 2-Verbalize Understanding , 3-ImproveStrength/Juanpablo 1=Demonstrate adherence to instructed precautions during ADL tasks. 2=Patient will verbalize/demonstrate understanding of assistive devices/ modifications for ADL. 3=Patient will improve strength/tolerance for activity to enable patient to perform ADL's. OT Labor Mediator Goals Labor Mediator Goals Time Frame: Dec 27, 2016 Eating (FIM): 4 Eating (QC): 4 Groomin Oral Hygiene (QC): 4 Bathing(FIM): 3 Shower/Bathe Self (QC): 3 Upper Body Dressing(FIM): 3 Upper Body Dressing (QC): 3 Lower Body Dressing(FIM): 3 Lower Body Dressing (QC): 3 On/Off Footwear (QC): 2 Toileting(FIM): 2 Toileting Hygiene (QC): 2 Transfers (B,C,W/C) (FIM): 2 Toilet/Commode Transfer(FIM): 2 Toilet/Commode Transfer (QC): 2 Shower Transfer(FIM): 2 Additional Goals: 1-Demonstrate ADL Tasks, 2-Verbalize Understanding, 3- ImproveStrength/Juanpablo 1=Demonstrate adherence to instructed precautions during ADL tasks. 2=Patient will verbalize/demonstrate understanding of assistive devices/ modifications for ADL. 3=Patient will improve strength/tolerance for activity to enable patient to perform ADL's. OT Education/Plan Discharge Recommendations Plan/Recommendations: Continue POC Treatment Plan/Plan of Care Patient would benefit from OT for education, treatment and training to promote independence in ADL's, mobility, safety and/or upper extremity function for ADL' s. Plan of Care: ADL Retraining, Caregiver Training, Cognitive Retraining, Functional Mobility, Group Exercise/Act as Ind, UE Funct Exercise/Act Treatment Duration: Dec 27, 2016 Frequency: At least 5 of 7 days/Wk (IRF) Estimated Hrs Per Day: 1.5 hours per day Agreement: Yes Rehab Potential: Poor Time/GCodes Start Time: 09:00 Stop Time: 10:00 Total Time Billed (hr/min): 60 Billed Treatment Time 1 visit-FA 4 (60 min) OT/PT co-treat 60 min ZEKE CANNON Dec 08, 2016 14:22
--- NOTE | 2016-12-08 14:42 | Occupational Ther Daily Note ---
OT Current Status-Daily Note Subjective Pt alert, lying in bed. Family present in room. Pt agreed to therapy. No c/o pain at this time. Mental Status/Objective Patient Orientation: Person, Unable to Assess Functional [place] Measure 0=Not Assessed/NA 4=Minimal Assistance 1=Total Assistance 5=Supervision or Setup 2=Maximal Assistance 6=Modified [place] 3=Moderate Assistance 7=Complete [place] Attachments: IV, Suprapubic Catheter ADL-Treatment Functional [place] Measure 0=Not Assessed/NA 4=Minimal Assistance 1=Total Assistance 5=Supervision or Setup 2=Maximal Assistance 6=Modified [place] 3=Moderate Assistance 7=Complete IndependenceIRFPAI Quality Coding Scale 6 Independent with activity with or without an assistive device 5 Patient requires set up or clean up by helper. Patient completes activity by themselves 4 Supervision or touching assist (CGA). [place] provide cues , steadying assist 3 The helper provides less than half the effort to complete the activity 2 The helper provides more than half the effort to complete the activity 1 Dependent. The helper does all the effort to complete an activity 7 Patient refused to complete or attempt activity 9 The patient did not perform the activity before the current illness or injury 88 Not attempted due to Medical conditions or safety concerns Other Treatment Co-treat with OT/PT. OT working on wt. bearing with R UE, shldr movement with L UE and dynamic sitting balance. PT working on sitting balance and transfers. Dependent with going from supine to sitting EOB. Pt's R hand placed at edge of bed to encourage wt bearing and self stabilization when sitting. Assist to lean forward and stay in sitting position. When support was taken away, pt fell backward and did not try to catch self. Pt then had bowel movement. Pt dependent with sitting to supine and moving up in bed. Reported to nrsg. After therapy, call light in reach. All needs met in room. OT Short Term Goals Short Term Goals Time Frame: Dec 06, 2016 Eating(FIM): 3 Grooming(FIM): 3 Bathing(FIM): 2 Upper Body Dressing(FIM): 2 Lower Body Dressing(FIM): 2 Toileting(FIM): 2 Transfers (B,C,W/C) (FIM): 2 Toilet/Commode Transfer(FIM): 2 Additional Short Term Goals: 1-Demonstrate ADL Tasks, 2-Verbalize Understanding , 3-ImproveStrength/Juanpablo 1=Demonstrate adherence to instructed precautions during ADL tasks. 2=Patient will verbalize/demonstrate understanding of assistive devices/ modifications for ADL. 3=Patient will improve strength/tolerance for activity to enable patient to perform ADL's. OT Mcc Goals Sales Department Clerk Goals Time Frame: Dec 27, 2016 Eating (FIM): 4 Eating (QC): 4 Groomin Oral Hygiene (QC): 4 Bathing(FIM): 3 Shower/Bathe Self (QC): 3 Upper Body Dressing(FIM): 3 Upper Body Dressing (QC): 3 Lower Body Dressing(FIM): 3 Lower Body Dressing (QC): 3 On/Off Footwear (QC): 2 Toileting(FIM): 2 Toileting Hygiene (QC): 2 Transfers (B,C,W/C) (FIM): 2 Toilet/Commode Transfer(FIM): 2 Toilet/Commode Transfer (QC): 2 Shower Transfer(FIM): 2 Additional Goals: 1-Demonstrate ADL Tasks, 2-Verbalize Understanding, 3- ImproveStrength/Juanpablo 1=Demonstrate adherence to instructed precautions during ADL tasks. 2=Patient will verbalize/demonstrate understanding of assistive devices/ modifications for ADL. 3=Patient will improve strength/tolerance for activity to enable patient to perform ADL's. OT Education/Plan Discharge Recommendations Plan/Recommendations: Continue POC Treatment Plan/Plan of Care Patient would benefit from OT for education, treatment and training to promote independence in ADL's, mobility, safety and/or upper extremity function for ADL' s. Plan of Care: ADL Retraining, Caregiver Training, Cognitive Retraining, Functional Mobility, Group Exercise/Act as Ind, UE Funct Exercise/Act Treatment Duration: Dec 27, 2016 Frequency: At least 5 of 7 days/Wk (IRF) Estimated Hrs Per Day: 1.5 hours per day Agreement: Yes Rehab Potential: Poor Time/GCodes Start Time: 13:00 Stop Time: 13:30 Total Time Billed (hr/min): 30 Billed Treatment Time 1 visit-FA 2 (30 min) co-treat OT/PT for 30 min ZEKE CANNON Dec 08, 2016 14:42
[2016-12-08] MEDS: IBUPROFEN TABLET 200 MG TAB PO PRN (17:42)
[2016-12-08 17:50] VITALS: BP 114/75
[2016-12-08] MEDS: CATHETER FLUSH 10 ML SYR IV PRN (20:41)
[2016-12-09] MEDS: AMPICILLIN IV SCH ×4 (03:48→20:40)
[2016-12-09] MEDS: NS IV SCH ×4 (03:48→20:40)
[2016-12-09] MEDS: CATHETER FLUSH 10 ML SYR IV PRN (03:48)
[2016-12-09 05:00] VITALS: BP 131/77
[2016-12-09] MEDS: MULTIVIT W/MINERALS TAB (THERAGRAN M) PO SCH (06:04)
[2016-12-09] MEDS: PANTOPRAZOLE 40 MG (PROTONIX) TAB PO SCH (06:04)
[2016-12-09] MEDS: ALFUZOSIN HCL 10 MG TAB (UROXATRAL) PO SCH (08:53)
[2016-12-09] MEDS: LEVETIRACETAM 500 MG (KEPPRA) TAB PO SCH ×2 (08:53→20:39)
[2016-12-09] MEDS: GABAPENTIN 300 MG (NEURONTIN) CAP PO SCH ×3 (08:53→20:39)
[2016-12-09] MEDS: RIVAROXABAN 20 MG TABLET (XARELTO) PO SCH (08:53)
[2016-12-09] MEDS: BACLOFEN 10 MG (LIORESAL) TAB PO SCH ×3 (08:53→20:39)
[2016-12-09] MEDS: LORATADINE (CLARITIN) 10 MG TAB PO PRN (08:53)
[2016-12-09] MEDS: LACTOBACILLUS Acidoph/Bulgar (LACTINEX/FLORANEX) TAB PO SCH (08:53)
[2016-12-09] MEDS: DOCUSATE SODIUM 100 MG (COLACE) CAP PO SCH ×2 (08:54→21:07)
[2016-12-09] MEDS: POLYETHYLENE GLYCOL 17 GM (MIRALAX) PACK PO SCH (08:54)
[2016-12-09] MEDS: OXYBUTYNIN 10 MG PO SCH ×3 (08:55→20:40)
--- NOTE | 2016-12-09 11:20 | Physical Therapy Daily Note ---
PT Daily Note-Current Subjective Pt in bed throughout treatment. Pt's mother present throughout. Pt is able to verbally indicate the presence of painful stimuli. Appearance Pt is conscious and able to respond to painful stimuli and some questions during ROM. Transfers Functional [place] Measure 0=Not Assessed/NA 4=Minimal Assistance 1=Total Assistance 5=Supervision or Setup 2=Maximal Assistance 6=Modified [place] 3=Moderate Assistance 7=Complete IndependenceIRFPAI Quality Coding Scale 6 Independent with activity with or without an assistive device 5 Patient requires set up or clean up by helper. Patient completes activity by themselves 4 Supervision or touching assist (CGA). [place] provide cues , steadying assist 3 The helper provides less than half the effort to complete the activity 2 The helper provides more than half the effort to complete the activity 1 Dependent. The helper does all the effort to complete an activity 7 Patient refused to complete or attempt activity 9 The patient did not perform the activity before the current illness or injury 88 Not attempted due to Medical conditions or safety concerns Scootin Rollin Weight Bearing Right Lower Extremity: Right Non Weight Bearing Treatments (B) LE PROM for hip and knee within tolerated ROM, 10min of ROM. Pt has (B) hip and knee contractures >90 degrees. Repositioned pt, with assist from tech and pt's mother, to (L) side lying with wedge under (R) glutes and back. Pt indicated that he was comfortable once we finished repositioning. Assessment Current Status: Fair Progress Pt is able to give 10% assist during (B) ROM, when given verbal cues. PT Short Term Goals Short Term Goals Time Frame: Nov 30, 2016 Transfers (B,C,W/C) (FIM): 2 PT Clinical Practitioner Goals Clinical Practitioner Goals PT Clinical Practitioner Goals Time Frame: Dec 14, 2016 Transfers (B,C,W/C) (FIM): 2 Sit to Lying (QC): 2 Lying-Sitting on Side/Bed(QC): 2 Rollin Roll Left to Right (QC): 2 Chair/Nae-cw-Ynspb Xfer(QC): 2 PT Plan Treatment/Plan Treatment Plan: Continue Plan of Care Treatment Plan: Bed Mobility, Concurrent Therapy, Education, Functional Activity Juanpablo, Functional Strength, Group Therapy, Safety, Therapeutic Exercise , Transfers Treatment Duration: Dec 14, 2016 Frequency: At least 5 of 7 days/Wk (IRF) Estimated Hrs Per Day: 1.5 hours per day Patient and/or Family Agrees t: Yes Time/GCodes Time In: 1050 Time Out: 1107 Total Billed Treatment Time: 17 Total Billed Treatment 1, fa 17 LJ SYED PT Dec 09, 2016 11:20
[2016-12-09] MEDS: HYDROcodone/APAP 5 MG/325 MG (LORTAB) TAB PO PRN (17:42)
[2016-12-09 17:53] VITALS: BP 133/83
[2016-12-10] MEDS: NS IV SCH ×4 (03:34→20:08)
[2016-12-10] MEDS: AMPICILLIN IV SCH ×4 (03:34→20:08)
[2016-12-10 05:44] VITALS: BP 128/78
[2016-12-10] MEDS: MULTIVIT W/MINERALS TAB (THERAGRAN M) PO SCH (06:32)
[2016-12-10] MEDS: PANTOPRAZOLE 40 MG (PROTONIX) TAB PO SCH (06:32)
[2016-12-10] MEDS: POLYETHYLENE GLYCOL 17 GM (MIRALAX) PACK PO SCH (09:55)
[2016-12-10] MEDS: DOCUSATE SODIUM 100 MG (COLACE) CAP PO SCH ×2 (09:55→20:07)
[2016-12-10] MEDS: LORATADINE (CLARITIN) 10 MG TAB PO PRN (09:55)
[2016-12-10] MEDS: LACTOBACILLUS Acidoph/Bulgar (LACTINEX/FLORANEX) TAB PO SCH (09:55)
[2016-12-10] MEDS: ALFUZOSIN HCL 10 MG TAB (UROXATRAL) PO SCH (09:55)
[2016-12-10] MEDS: RIVAROXABAN 20 MG TABLET (XARELTO) PO SCH (09:55)
[2016-12-10] MEDS: LEVETIRACETAM 500 MG (KEPPRA) TAB PO SCH ×2 (09:55→20:07)
[2016-12-10] MEDS: GABAPENTIN 300 MG (NEURONTIN) CAP PO SCH ×3 (09:56→20:07)
[2016-12-10] MEDS: BACLOFEN 10 MG (LIORESAL) TAB PO SCH ×3 (09:56→20:07)
[2016-12-10] MEDS: OXYBUTYNIN 10 MG PO SCH ×3 (10:18→20:07)
[2016-12-10] MEDS: HYDROcodone/APAP 5 MG/325 MG (LORTAB) TAB PO PRN ×2 (10:26→18:11)
[2016-12-10 18:07] VITALS: BP 168/96
[2016-12-10 18:23] VITALS: BP 126/85
[2016-12-10] MEDS: CATHETER FLUSH 10 ML SYR IV PRN (20:08)
[2016-12-11] MEDS: CATHETER FLUSH 10 ML SYR IV PRN ×2 (02:42→20:55)
[2016-12-11] MEDS: AMPICILLIN IV SCH ×4 (02:42→20:54)
[2016-12-11] MEDS: NS IV SCH ×4 (02:42→20:54)
[2016-12-11 05:11] VITALS: BP 123/83
[2016-12-11 05:44] LABS: BASOPHILS % (AUTO) 1 % (0-10); EOSINOPHILS # (AUTO) 0.2 10^3/uL (0.0-0.3); EOSINOPHILS % (AUTO) 3 % (0-10); LYMPHOCYTES # (AUTO) 1.8 X 10^3 (1.0-4.0); LYMPHOCYTES % (AUTO) 34 % (12-44); MEAN CORPUSCULAR HEMOGLOBIN 30 PG (25-34); MEAN CORPUSCULAR HGB CONC 32 G/DL (32-36); MEAN CORPUSCULAR VOLUME 94 FL (80-99); MONOCYTES # (AUTO) 0.5 X 10^3 (0.0-1.0); MONOCYTES % (AUTO) 10 % (0-12); NEUTROPHILS # (AUTO) 2.8 X 10^3 (1.8-7.8); NEUTROPHILS % (AUTO) 53 % (42-75); PLATELET COUNT 164 10^3/uL (130-400); RED BLOOD COUNT 4.02 10^6/uL (4.35-5.85); RED CELL DISTRIBUTION WIDTH 12.4 % (10.0-14.5); WHITE BLOOD COUNT 5.2 10^3/uL (4.3-11.0)
[2016-12-11 06:02] LABS: ERYTHROCYTE SEDIMENTATION RATE 17 MM/HR (0-15)
[2016-12-11 06:14] LABS: ALBUMIN 3.3 GM/DL (3.2-4.5); BILIRUBIN,TOTAL 0.2 MG/DL (0.1-1.0); CALCIUM 8.6 MG/DL (8.5-10.1); CREATININE SERUM 1.35 MG/DL (0.60-1.30); POTASSIUM 4.8 MMOL/L (3.6-5.0); TOTAL PROTEIN 6.9 GM/DL (6.4-8.2)
[2016-12-11] MEDS: PANTOPRAZOLE 40 MG (PROTONIX) TAB PO SCH (06:14)
[2016-12-11] MEDS: MULTIVIT W/MINERALS TAB (THERAGRAN M) PO SCH (06:14)
[2016-12-11] MEDS: LACTOBACILLUS Acidoph/Bulgar (LACTINEX/FLORANEX) TAB PO SCH (08:16)
[2016-12-11] MEDS: ALFUZOSIN HCL 10 MG TAB (UROXATRAL) PO SCH (08:16)
[2016-12-11] MEDS: LEVETIRACETAM 500 MG (KEPPRA) TAB PO SCH ×2 (08:16→20:54)
[2016-12-11] MEDS: LORATADINE (CLARITIN) 10 MG TAB PO PRN (08:16)
[2016-12-11] MEDS: GABAPENTIN 300 MG (NEURONTIN) CAP PO SCH ×3 (08:16→20:54)
[2016-12-11] MEDS: DOCUSATE SODIUM 100 MG (COLACE) CAP PO SCH ×2 (08:16→20:54)
[2016-12-11] MEDS: RIVAROXABAN 20 MG TABLET (XARELTO) PO SCH (08:17)
[2016-12-11] MEDS: BACLOFEN 10 MG (LIORESAL) TAB PO SCH ×3 (08:17→20:54)
[2016-12-11] MEDS: POLYETHYLENE GLYCOL 17 GM (MIRALAX) PACK PO SCH (08:18)
[2016-12-11] MEDS: OXYBUTYNIN 10 MG PO SCH ×3 (08:18→20:54)
[2016-12-11] MEDS: HYDROcodone/APAP 5 MG/325 MG (LORTAB) TAB PO PRN ×2 (08:32→09:43)
--- NOTE | 2016-12-11 08:34 | Progress Note (SOAP) ---
Subjective Time Seen by Provider: 08:30 Subjective/Events-last exam tBI. Osteomyelitis. Patient resting comfortably. Patient not having any complaints Objective Exam Vital Signs Date Time Temp Pulse Resp B/P (MAP) Pulse Ox O2 Delivery O2 Flow Rate FiO2 12/11/16 05:11 98.0 79 16 123/83 93 Room Air 12/10/16 20:23 Room Air 12/10/16 19:07 Room Air 12/10/16 18:23 98.9 97 18 126/85 96 Room Air 12/10/16 18:07 99.0 94 14 168/96 93 Room Air 12/10/16 09:43 Room Air Capillary Refill : General Appearance: No Apparent Distress, WD/WN Results Lab Laboratory Tests 12/11/16 05:30: White Blood Count 5.2, Red Blood Count 4.02L, Hemoglobin 12.2L, Hematocrit 38L, Mean Corpuscular Volume 94, Mean Corpuscular Hemoglobin 30, Mean Corpuscular Hemoglobin Concent 32, Red Cell Distribution Width 12.4, Platelet Count 164, Mean Platelet Volume 10.0, Neutrophils (%) (Auto) 53, Lymphocytes (%) (Auto) 34 , Monocytes (%) (Auto) 10, Eosinophils (%) (Auto) 3, Basophils (%) (Auto) 1, Neutrophils # (Auto) 2.8, Lymphocytes # (Auto) 1.8, Monocytes # (Auto) 0.5, Eosinophils # (Auto) 0.2, Basophils # (Auto) 0.0, Erythrocyte Sedimentation Rate 17H, Sodium Level 139, Potassium Level 4.8, Chloride Level 106, Carbon Dioxide Level 20L, Anion Gap 13, Blood Urea Nitrogen 11, Creatinine 1.35H, Estimat Glomerular Filtration Rate 58, BUN/Creatinine Ratio 8, Glucose Level 87 , Calcium Level 8.6, Total Bilirubin 0.2, Aspartate Amino Transf (AST/SGOT) 20, Alanine Aminotransferase (ALT/SGPT) 13, Alkaline Phosphatase 76, Total Protein 6.9, Albumin 3.3 Assessment/Plan Assessment/Plan Assess & Plan/Chief Complaint TBI. Osteomyelitis. Fractures. Patient feeling better today. . . Patient having blood in the urine to see urologist today. 11/27/16. TBI. Fractures. Patient voicing no complaints today. . 11/29/16. Osteomyelitis. Fractures. TBI. Patient more alert today.. . Patient speaking better. . 11/30/16. TBI. Osteomyelitis. Fractures. Patient states she's feeling better. Patient more alert. . 12/01/16. TBI. Osteomyelitis. Fractures. Patient resting comfortably. Patient more observant in his speech. . . tBI. Osteomyelitis. Fractures. Patient's blood tests look good today. Sedimentation rate slightly elevated at 20. . 12/05/16. Fractures. Osteomyelitis. TBI. Patient feeling better today. Patient eating well. . 12/06/16. TBI. Fractures. Osteomyelitis. Hypertension. Patient still needs a lot of work. . 12/07/16. CBI. Fractures. Osteomyelitis. Patient to have nwfgr-jbt-dcec amputation by surgeon. Contractures. . . tBI. Fractures. Osteomyelitis. Fractures. patient feeling good today. . . tBI. Fractures. Osteomyelitis. Patient feeling good today. Patient up and resting comfortably Clinical Quality Measures DVT/VTE Risk/Contraindication: Risk Factor Score Per Nursin RFS Level Per Nursing on Admit: 3=High JOON WALTER DO Dec 11, 2016 08:34
--- NOTE | 2016-12-11 08:59 | Speech Therapy Daily Note ---
Speech Daily Progress Note Subjective Date Seen by Provider: Dec 11, 2016 Time Seen by Provider: 08:25 The patient was seated upright in bed upon entrance. The patient requested to be reclined, therefore, the clinician reclined the patient. The patient recently completed breakfast, bath, and morning medications. Objective To note: The patient required maximum, consistent verbal cueing and encouragement for limited participation (less than usual) in the speech pathology session. The patient frequently perseverates on topics, requiring maximum cueing to return to task. The patient continuously requested to sleep throughout the session. Oral Motor Exercises: Oral motor (labial and lingual) exercises were continued on this date with limited participation and accuracy, as well as, maximum verbal prompting. Oropharyngeal Strengthening Exercises: Swallowing exercises were continued on this date. The clinician attempted an effortful swallow, base of tongue retraction, and adductor exercises. The patient performed limited repetitions ( five maximum) of exercises with maximum clinician cueing and prompting. Assessment Assessment Current Status: Poor Progress Treatment Plan Continue Plan of Care Communication Comprehension: 3 Expression: 2 Social Cognition Social Interaction: 1 Problem Solvin Memory: 1 Speech Short Term Goals Short Term Goals Short Term Goals 1. The patient will complete a full cognitive evaluation with mild clinician verbal prompting. MET (11/23/16) 2. The patient will display 80% accuracy with structured word-finding tasks with mild clinician verbal prompting. 3. The patient will demonstrate 80% accuracy with sequencing of ADL tasks with minimal clinician verbal prompting. 4. The patient will complete structured deductive reasoning tasks with 80% accuracy and mild clinician cueing. 5. The patient will display 80% accuracy with oral motor exercises with mild clinician direct modeling. 6. The patient will demonstrate 80% accuracy with oral and lingual range of motion and strengthening exercises with mild clinician verbal cueing. Time Frame-STG: Three Weeks Speech Mash Preparatory Operator Goals Mash Preparatory Operator Goals 1. The patient will improve cognitive linguistic skills for increased function and safety with ADL's in the least restrictive setting. 2. The patient will tolerate the least restrictive diet without signs/symptoms of aspiration or laryngeal penetration. Time Frame: Four Weeks Speech-Plan Treatment Plan Speech Therapy Treatment Plan: Continue Plan of Care Continue skilled speech pathology to target expressive communication. Treatment Duration: Dec 27, 2016 Frequency: Modified Program (IRF) (Four to Five Treatment Sessions Per Week) Estimated Hrs Per Day: .5 hour per day Rehab Potential: Poor Safety Risks/Education Teaching Recipient: Patient Teaching Methods: Demonstration, Discussion Response to Teaching: Reinforcement Needed Education Topics Provided: Oral Motor Exercises Time Speech Therapy Time In: 08:25 Speech Therapy Time Out: 08:55 Total Billed Time: 30 Billed Treatment Time 1, SLTS (15 Minutes) 1, DYST (15 Minutes) PHILLY HAZEL Dec 11, 2016 08:59
--- NOTE | 2016-12-11 09:48 | Physical Therapy Daily Note ---
PT Daily Note-Current Subjective Patient in bed pre tx, will be co-treating with OT this morning. Patient has no complaints of pain at rest but he complains of pain with any activity. Appearance Patient in wheelchair (seatbelt on) at table in common area post tx. Mental Status Patient Orientation: Person Attachments: Suprapubic Catheter Transfers Functional [place] Measure 0=Not Assessed/NA 4=Minimal Assistance 1=Total Assistance 5=Supervision or Setup 2=Maximal Assistance 6=Modified [place] 3=Moderate Assistance 7=Complete IndependenceIRFPAI Quality Coding Scale 6 Independent with activity with or without an assistive device 5 Patient requires set up or clean up by helper. Patient completes activity by themselves 4 Supervision or touching assist (CGA). [place] provide cues , steadying assist 3 The helper provides less than half the effort to complete the activity 2 The helper provides more than half the effort to complete the activity 1 Dependent. The helper does all the effort to complete an activity 7 Patient refused to complete or attempt activity 9 The patient did not perform the activity before the current illness or injury 88 Not attempted due to Medical conditions or safety concerns Transfers (B, C, W/C) (FIM): 1 Scootin Rollin Supine to/from Sit: 1 Bed to/from Chair: 1 zoey for transfers, patient will assist with rolling to the left with his right arm, but not enough to be considered max assist Weight Bearing Right Lower Extremity: Right Non Weight Bearing Treatments Patient was transferred from bed to chair and taken to the therapy gym and then transferred to the therapy table. He sat at the edge of the table and OT worked on trunk ROM and limits of stability and PT worked on sitting balance and positioning. He was then tranferred back to his wheelchair. Assessment Current Status: Poor Progress No change in mobility, poor motivation and participation. Patient repeats the same phrases over and over and will not communicate. As soon as a therapist talks and tries to give directions, he interrupts with the phrase he is currently repeating. PT Short Term Goals Short Term Goals Time Frame: Nov 30, 2016 Transfers (B,C,W/C) (FIM): 2 PT Skilled Nursing Goals Semiconductor Packages Tester Goals PT Semiconductor Packages Tester Goals Time Frame: Dec 14, 2016 Transfers (B,C,W/C) (FIM): 2 Sit to Lying (QC): 2 Lying-Sitting on Side/Bed(QC): 2 Rollin Roll Left to Right (QC): 2 Chair/Rnw-fj-Dltsh Xfer(QC): 2 PT Plan Problem List Problem List: Activity Tolerance, Functional Strength, Safety, Balance, Transfer, Bed Mobility, ROM Treatment/Plan Treatment Plan: Continue Plan of Care Treatment Plan: Bed Mobility, Concurrent Therapy, Education, Functional Activity Juanpablo, Functional Strength, Group Therapy, Safety, Therapeutic Exercise , Transfers Treatment Duration: Dec 14, 2016 Frequency: At least 5 of 7 days/Wk (IRF) Estimated Hrs Per Day: 1.5 hours per day Patient and/or Family Agrees t: Yes Safety Risks/Education Patient Education: Transfer Techniques, Correct Positioning, Safety Issues Teaching Recipient: Patient Teaching Methods: Demonstration, Discussion Response to Teaching: Reinforcement Needed Time/GCodes Time In: 900 Time Out: 945 Total Billed Treatment Time: 45 Total Billed Treatment 1 visit FA 45' FREDDY TRIMBLE PT Dec 11, 2016 09:48
--- NOTE | 2016-12-11 11:38 | Occupational Ther Daily Note ---
OT Current Status-Daily Note Subjective Pt lying in bed with eyes closed, but responded to greeting. Pt did not c/o pain while lying down, when activity started pt c/o pain and want a pain pill. Therapy encouraged pt to work through it, reported to nrsg. Mental Status/Objective Patient Orientation: Person, Unable to Assess Functional [place] Measure 0=Not Assessed/NA 4=Minimal Assistance 1=Total Assistance 5=Supervision or Setup 2=Maximal Assistance 6=Modified [place] 3=Moderate Assistance 7=Complete [place] Attachments: IV, Suprapubic Catheter ADL-Treatment Functional [place] Measure 0=Not Assessed/NA 4=Minimal Assistance 1=Total Assistance 5=Supervision or Setup 2=Maximal Assistance 6=Modified [place] 3=Moderate Assistance 7=Complete IndependenceIRFPAI Quality Coding Scale 6 Independent with activity with or without an assistive device 5 Patient requires set up or clean up by helper. Patient completes activity by themselves 4 Supervision or touching assist (CGA). [place] provide cues , steadying assist 3 The helper provides less than half the effort to complete the activity 2 The helper provides more than half the effort to complete the activity 1 Dependent. The helper does all the effort to complete an activity 7 Patient refused to complete or attempt activity 9 The patient did not perform the activity before the current illness or injury 88 Not attempted due to Medical conditions or safety concerns Other Treatment Co-treat with PT today. PT worked on transfers, sitting balance and LE stretching. OT worked on reaching/grasping, UE stretching and dynamic sitting. Stretching to trunk and UE's while pt sitting on edge of mat. Pt continued to go between 'wanting a pain pill' and 'call my mom'. Attempted to redirect, pt continued with repeating statements. Did not communicate well today. Unmotivated to work during therapy, assist to sit and no attempt to correct leaning either side. Pt transferred from therapy mat with zoey lift to w/c. Pt sitting up in w/c at table in [employer] FERREIRA attempted to get pt to interact using table top activity. Pt was able to reach and grasp cards with R UE though did not attend to tasks. Pt was able to describe where to place cards , when finished with task pt continued to state where to place cards. Pt was able to match 50% of the time, but then just started picking up cards with R hand and attempting to place. After therapy, pt's aunt was present. All needs met. Pt sitting in w/c at [facility] commons table. OT Short Term Goals Short Term Goals Time Frame: Dec 06, 2016 Eating(FIM): 3 Grooming(FIM): 3 Bathing(FIM): 2 Upper Body Dressing(FIM): 2 Lower Body Dressing(FIM): 2 Toileting(FIM): 2 Transfers (B,C,W/C) (FIM): 2 Toilet/Commode Transfer(FIM): 2 Additional Short Term Goals: 1-Demonstrate ADL Tasks, 2-Verbalize Understanding , 3-ImproveStrength/Juanpablo 1=Demonstrate adherence to instructed precautions during ADL tasks. 2=Patient will verbalize/demonstrate understanding of assistive devices/ modifications for ADL. 3=Patient will improve strength/tolerance for activity to enable patient to perform ADL's. OT Retirement Goals Retirement Goals Time Frame: Dec 27, 2016 Eating (FIM): 4 Eating (QC): 4 Groomin Oral Hygiene (QC): 4 Bathing(FIM): 3 Shower/Bathe Self (QC): 3 Upper Body Dressing(FIM): 3 Upper Body Dressing (QC): 3 Lower Body Dressing(FIM): 3 Lower Body Dressing (QC): 3 On/Off Footwear (QC): 2 Toileting(FIM): 2 Toileting Hygiene (QC): 2 Transfers (B,C,W/C) (FIM): 2 Toilet/Commode Transfer(FIM): 2 Toilet/Commode Transfer (QC): 2 Shower Transfer(FIM): 2 Additional Goals: 1-Demonstrate ADL Tasks, 2-Verbalize Understanding, 3- ImproveStrength/Juanpablo 1=Demonstrate adherence to instructed precautions during ADL tasks. 2=Patient will verbalize/demonstrate understanding of assistive devices/ modifications for ADL. 3=Patient will improve strength/tolerance for activity to enable patient to perform ADL's. OT Education/Plan Discharge Recommendations Plan/Recommendations: Continue POC Treatment Plan/Plan of Care Patient would benefit from OT for education, treatment and training to promote independence in ADL's, mobility, safety and/or upper extremity function for ADL' s. Plan of Care: ADL Retraining, Caregiver Training, Cognitive Retraining, Functional Mobility, Group Exercise/Act as Ind, UE Funct Exercise/Act Treatment Duration: Dec 27, 2016 Frequency: At least 5 of 7 days/Wk (IRF) Estimated Hrs Per Day: 1.5 hours per day Agreement: Yes Rehab Potential: Poor Time/GCodes Start Time: 09:00 Stop Time: 10:00 Total Time Billed (hr/min): 60 Billed Treatment Time 1 visit-FA 4 (60 min) co-treat with PT [id number] (45 min) individual 0945- 1000 (15 min) ZEKE CANNON Dec 11, 2016 11:38
--- NOTE | 2016-12-11 13:54 | Physical Therapy Daily Note ---
PT Daily Note-Current Subjective "Be gentle, Be Gentle, Be Gentle", repeated throughout treatment. Transfers Functional [place] Measure 0=Not Assessed/NA 4=Minimal Assistance 1=Total Assistance 5=Supervision or Setup 2=Maximal Assistance 6=Modified [place] 3=Moderate Assistance 7=Complete IndependenceIRFPAI Quality Coding Scale 6 Independent with activity with or without an assistive device 5 Patient requires set up or clean up by helper. Patient completes activity by themselves 4 Supervision or touching assist (CGA). [place] provide cues , steadying assist 3 The helper provides less than half the effort to complete the activity 2 The helper provides more than half the effort to complete the activity 1 Dependent. The helper does all the effort to complete an activity 7 Patient refused to complete or attempt activity 9 The patient did not perform the activity before the current illness or injury 88 Not attempted due to Medical conditions or safety concerns Weight Bearing Right Lower Extremity: Right Non Weight Bearing Treatments Long slow passive stretching B LE's for knee extension and trunk rotation to the right. Prolonged hold of each stretch. Pt positioned with slight tilt to the right post treatment with legs positioned to relieve pressure and heels elevated. Assessment Pt has significant tone that pulls his limbs back to flexed postion post treatment; difficulty getting lengthened musculature with stretching due to contractures and tone. PT Short Term Goals Short Term Goals Time Frame: Nov 30, 2016 Transfers (B,C,W/C) (FIM): 2 PT Fci Goals Furnace Caretaker Goals PT [facility]ci Goals Time Frame: Dec 14, 2016 Transfers (B,C,W/C) (FIM): 2 Sit to Lying (QC): 2 Lying-Sitting on Side/Bed(QC): 2 Rollin Roll Left to Right (QC): 2 Chair/Cpx-tc-Vined Xfer(QC): 2 PT Plan Problem List Problem List: Bed Mobility, ROM, Other (positioning) Treatment/Plan Treatment Plan: Continue Plan of Care Treatment Plan: Bed Mobility, Concurrent Therapy, Education, Functional Activity Juanpablo, Functional Strength, Group Therapy, Safety, Therapeutic Exercise , Transfers Treatment Duration: Dec 14, 2016 Frequency: At least 5 of 7 days/Wk (IRF) Estimated Hrs Per Day: 1.5 hours per day Patient and/or Family Agrees t: Yes Safety Risks/Education Spoke with patient throughout treatment regarding why stretching and positioning is important. Unsure of his exact ability to comprehend. Time/GCodes Time In: 1301 Time Out: 1352 Total Billed Treatment Time: 51 Total Billed Treatment visit Ther ex 51 ZEKE DUMONT PT Dec 11, 2016 13:53
--- NOTE | 2016-12-11 15:09 | Occupational Ther Daily Note ---
OT Current Status-Daily Note Subjective Pt's aunt just finished feeding pt. Pt's eyes closed when pt saw FERREIRA. Family present in room. Mental Status/Objective Patient Orientation: Person, Unable to Assess Functional [place] Measure 0=Not Assessed/NA 4=Minimal Assistance 1=Total Assistance 5=Supervision or Setup 2=Maximal Assistance 6=Modified Greene 3=Moderate Assistance 7=Complete Greene Attachments: IV, Suprapubic Catheter ADL-Treatment Massage and stretch to L hand and L wrist. Pt c/o pain when FERREIRA touched skin. Pt resisted any stretch to area. Continued attempt to increase PROM, pt continued to increase flexion. Pt stated 'stop hurting me, dammit'. Placed hand and wrist splint onto L hand/wrist per request of family. After therapy, pt lying in bed with eyes closed. Family present in room. All needs met in room. Functional Greene Measure 0=Not Assessed/NA 4=Minimal Assistance 1=Total Assistance 5=Supervision or Setup 2=Maximal Assistance 6=Modified Greene 3=Moderate Assistance 7=Complete IndependenceIRFPAI Quality Coding Scale 6 Independent with activity with or without an assistive device 5 Patient requires set up or clean up by helper. Patient completes activity by themselves 4 Supervision or touching assist (CGA). [place] provide cues , steadying assist 3 The helper provides less than half the effort to complete the activity 2 The helper provides more than half the effort to complete the activity 1 Dependent. The helper does all the effort to complete an activity 7 Patient refused to complete or attempt activity 9 The patient did not perform the activity before the current illness or injury 88 Not attempted due to Medical conditions or safety concerns OT Short Term Goals Short Term Goals Time Frame: Dec 06, 2016 Eating(FIM): 3 Grooming(FIM): 3 Bathing(FIM): 2 Upper Body Dressing(FIM): 2 Lower Body Dressing(FIM): 2 Toileting(FIM): 2 Transfers (B,C,W/C) (FIM): 2 Toilet/Commode Transfer(FIM): 2 Additional Short Term Goals: 1-Demonstrate ADL Tasks, 2-Verbalize Understanding , 3-ImproveStrength/Juanpablo 1=Demonstrate adherence to instructed precautions during ADL tasks. 2=Patient will verbalize/demonstrate understanding of assistive devices/ modifications for ADL. 3=Patient will improve strength/tolerance for activity to enable patient to perform ADL's. OT Corporate Executive Chef Goals Corporate Executive Chef Goals Time Frame: Dec 27, 2016 Eating (FIM): 4 Eating (QC): 4 Groomin Oral Hygiene (QC): 4 Bathing(FIM): 3 Shower/Bathe Self (QC): 3 Upper Body Dressing(FIM): 3 Upper Body Dressing (QC): 3 Lower Body Dressing(FIM): 3 Lower Body Dressing (QC): 3 On/Off Footwear (QC): 2 Toileting(FIM): 2 Toileting Hygiene (QC): 2 Transfers (B,C,W/C) (FIM): 2 Toilet/Commode Transfer(FIM): 2 Toilet/Commode Transfer (QC): 2 Shower Transfer(FIM): 2 Additional Goals: 1-Demonstrate ADL Tasks, 2-Verbalize Understanding, 3- ImproveStrength/Juanpablo 1=Demonstrate adherence to instructed precautions during ADL tasks. 2=Patient will verbalize/demonstrate understanding of assistive devices/ modifications for ADL. 3=Patient will improve strength/tolerance for activity to enable patient to perform ADL's. OT Education/Plan Discharge Recommendations Plan/Recommendations: Continue POC Treatment Plan/Plan of Care Patient would benefit from OT for education, treatment and training to promote independence in ADL's, mobility, safety and/or upper extremity function for ADL' s. Plan of Care: ADL Retraining, Caregiver Training, Cognitive Retraining, Functional Mobility, Group Exercise/Act as Ind, UE Funct Exercise/Act Treatment Duration: Dec 27, 2016 Frequency: At least 5 of 7 days/Wk (IRF) Estimated Hrs Per Day: 1.5 hours per day Agreement: Yes Rehab Potential: Poor Time/GCodes Start Time: 15:00 Stop Time: 15:15 Total Time Billed (hr/min): 15 Billed Treatment Time 1 visit-FA 1 (15 min) ZEKE CANNON Dec 11, 2016 15:09
[2016-12-11] MEDS: IBUPROFEN TABLET 200 MG TAB PO PRN (17:34)
[2016-12-11 18:00] VITALS: BP 113/74
--- NOTE | 2016-12-11 18:20 | PM & R (SOAP) Progress Note ---
Subjective Time Seen by Provider: 18:05 Subjective/Events-last exam Patient was seen in his room this evening Informed by Nursing that Patient has been accepted to [facility] for tomorrow.Hopefuly they will be able to provide ongoing services for patient with f/u with surgeon re possible amputaion if needed, Objective Exam Last Set of Vital Signs Vital Signs Date Time Temp Pulse Resp B/P (MAP) Pulse Ox O2 Delivery O2 Flow Rate FiO2 12/11/16 18:00 96 17 113/74 95 12/11/16 09:00 Room Air 12/11/16 05:11 98.0 Capillary Refill : I&O Intake and Output 12/12/16 00:00 Intake Total 400 ml Output Total 500 ml Balance -100 ml Intake Oral 300 ml IV Total 100 ml Output Urine Total 500 ml General: Cooperative, No Acute Distress HEENT: Mucous Memb Moist/[place] Neck: Supple, No JVD Lungs: Clear to Auscultation Heart: Regular Rate Abdomen: Normal Bowel Sounds, Soft, No Tenderness, Other (Suprapubic catheter in place) Extremities: Other (Plus contractures and rt ankle dressed) Neuro: Other (WEakness and contractures . lower limbs then uppers) Results Lab Laboratory Tests 12/11/16 05:30: White Blood Count 5.2, Red Blood Count 4.02L, Hemoglobin 12.2L, Hematocrit 38L, Mean Corpuscular Volume 94, Mean Corpuscular Hemoglobin 30, Mean Corpuscular Hemoglobin Concent 32, Red Cell Distribution Width 12.4, Platelet Count 164, Mean Platelet Volume 10.0, Neutrophils (%) (Auto) 53, Lymphocytes (%) (Auto) 34 , Monocytes (%) (Auto) 10, Eosinophils (%) (Auto) 3, Basophils (%) (Auto) 1, Neutrophils # (Auto) 2.8, Lymphocytes # (Auto) 1.8, Monocytes # (Auto) 0.5, Eosinophils # (Auto) 0.2, Basophils # (Auto) 0.0, Erythrocyte Sedimentation Rate 17H, Sodium Level 139, Potassium Level 4.8, Chloride Level 106, Carbon Dioxide Level 20L, Anion Gap 13, Blood Urea Nitrogen 11, Creatinine 1.35H, Estimat Glomerular Filtration Rate 58, BUN/Creatinine Ratio 8, Glucose Level 87 , Calcium Level 8.6, Total Bilirubin 0.2, Aspartate Amino Transf (AST/SGOT) 20, Alanine Aminotransferase (ALT/SGPT) 13, Alkaline Phosphatase 76, Total Protein 6.9, Albumin 3.3 Assessment/Plan Assessment 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
[2016-12-12] MEDS: NS IV SCH ×2 (03:45→08:14)
[2016-12-12] MEDS: AMPICILLIN IV SCH ×2 (03:45→08:14)
[2016-12-12 05:36] VITALS: BP 119/78
[2016-12-12] MEDS: PANTOPRAZOLE 40 MG (PROTONIX) TAB PO SCH (05:43)
[2016-12-12] MEDS: MULTIVIT W/MINERALS TAB (THERAGRAN M) PO SCH (05:43)
--- NOTE | 2016-12-12 07:55 | PM & R (SOAP) Progress Note ---
Subjective Time Seen by Provider: 07:50 Subjective/Events-last exam Patient was seen in his room this AM IT is my understanding that patient will be transferred to [facility] in [facility] for ongoing care today Patient is alert and knows the month and year.Current labs reviewed Objective Exam Last Set of Vital Signs Vital Signs Date Time Temp Pulse Resp B/P (MAP) Pulse Ox O2 Delivery O2 Flow Rate FiO2 12/12/16 07:25 Room Air 12/12/16 05:36 98.3 76 16 119/78 94 Capillary Refill : I&O Intake and Output 12/13/16 00:00 Intake Total 200 ml Output Total 450 ml Balance -250 ml Intake Oral 200 ml Output Urine Total 450 ml General: Cooperative, No Acute Distress HEENT: Mucous Memb Moist/[place] Neck: Supple, No JVD Lungs: Clear to Auscultation Heart: Regular Rate Abdomen: Normal Bowel Sounds, Soft, No Tenderness, Other (Suprapubic catheter in place) Extremities: Other (Plus contractures and rt ankle dressed) Neuro: Other (WEakness and contractures . lower limbs then uppers) Results Lab Laboratory Tests 12/11/16 05:30: White Blood Count 5.2, Red Blood Count 4.02L, Hemoglobin 12.2L, Hematocrit 38L, Mean Corpuscular Volume 94, Mean Corpuscular Hemoglobin 30, Mean Corpuscular Hemoglobin Concent 32, Red Cell Distribution Width 12.4, Platelet Count 164, Mean Platelet Volume 10.0, Neutrophils (%) (Auto) 53, Lymphocytes (%) (Auto) 34 , Monocytes (%) (Auto) 10, Eosinophils (%) (Auto) 3, Basophils (%) (Auto) 1, Neutrophils # (Auto) 2.8, Lymphocytes # (Auto) 1.8, Monocytes # (Auto) 0.5, Eosinophils # (Auto) 0.2, Basophils # (Auto) 0.0, Erythrocyte Sedimentation Rate 17H, Sodium Level 139, Potassium Level 4.8, Chloride Level 106, Carbon Dioxide Level 20L, Anion Gap 13, Blood Urea Nitrogen 11, Creatinine 1.35H, Estimat Glomerular Filtration Rate 58, BUN/Creatinine Ratio 8, Glucose Level 87 , Calcium Level 8.6, Total Bilirubin 0.2, Aspartate Amino Transf (AST/SGOT) 20, Alanine Aminotransferase (ALT/SGPT) 13, Alkaline Phosphatase 76, Total Protein 6.9, Albumin 3.3 Assessment/Plan Assessment 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
[2016-12-12] MEDS: LORATADINE (CLARITIN) 10 MG TAB PO PRN (08:04)
[2016-12-12] MEDS: GABAPENTIN 300 MG (NEURONTIN) CAP PO SCH (08:04)
[2016-12-12] MEDS: RIVAROXABAN 20 MG TABLET (XARELTO) PO SCH (08:04)
[2016-12-12] MEDS: DOCUSATE SODIUM 100 MG (COLACE) CAP PO SCH (08:04)
[2016-12-12] MEDS: LACTOBACILLUS Acidoph/Bulgar (LACTINEX/FLORANEX) TAB PO SCH (08:04)
[2016-12-12] MEDS: LEVETIRACETAM 500 MG (KEPPRA) TAB PO SCH (08:04)
[2016-12-12] MEDS: BACLOFEN 10 MG (LIORESAL) TAB PO SCH (08:04)
[2016-12-12] MEDS: ALFUZOSIN HCL 10 MG TAB (UROXATRAL) PO SCH (08:04)
[2016-12-12] MEDS: OXYBUTYNIN 10 MG PO SCH (08:05)
[2016-12-12] MEDS: POLYETHYLENE GLYCOL 17 GM (MIRALAX) PACK PO SCH (08:05)
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
--- NOTE | 2016-12-12 08:30 | Therapy Team Discharge Summary ---
Therapy Discharge Summary Discharge Recommendations Date of Discharge Therapy D/C Recommendations: 24 hr Supervision Occupational Therapy Pt. has been seen by occupational therapy to increase overall strength and independence. Pt. has made little progress on this rehab unit. Pt. requires co -treatment of PT/OT due to level of skilled care required. Pt. still requires dependent assistance with all ADLs. Requires encouragement to participate and problem solve. Due to pt's joint contractures, transfers have been limited to zoey lift. No goals met. Pt. discharged to [place] for continued treatment and LTC placement while awaiting amputation of leg. Discharge planning for home will be completed at that time. Decreased Activ Tolerance, Decreased Safety Aware, Decreased UE Strength, Dependent Transfers, Impaired Bed Mobility, Impaired Cognition, Impaired Coordination, Impaired Funct Balance, Impaired I ADL's, Impaired Self-Care Skills, Restricted Funct UE ROM PT Shelter Goals Evaporator Operator Goals PT Shelter Goals Time Frame: Dec 14, 2016 Transfers (B,C,W/C) (FIM): 2 Roll Left to Right (QC): 2 Sit to Lying (QC): 2 Lying-Sitting on Side/Bed(QC): 2 Chair/Ros-mq-Dxmnp Xfer(QC): 2 OT Shelter Goals Shelter Goals Time Frame: Dec 27, 2016 Eating (FIM): 4 (not met) Eating (QC): 4 (not met) Oral Hygiene (QC): 4 (not met) Grooming(FIM): 4 (not met) Bathing(FIM): 3 (not met) Shower/Bathe Self (QC): 3 (not met) Upper Body Dressing(FIM): 3 (not met) Upper Body Dressing (QC): 3 (not met) Lower Body Dressing(FIM): 3 (not met) Lower Body Dressing (QC): 3 (not met) On/Off Footwear (QC): 2 (not met) Toileting(FIM): 2 (not met) Toileting Hygiene (QC): 2 (not met) Transfers (B,C,W/C) (FIM): 2 (not met) Toilet/Commode Transfer(FIM): 2 (not met) Toilet/Commode Transfer (QC): 2 (not met) Shower Transfer(FIM): 2 (not met) Additional Goals: 1-Demonstrate ADL Tasks, 2-Verbalize Understanding, 3- ImproveStrength/Juanpablo 1=Demonstrate adherence to instructed precautions during ADL tasks. 2=Patient will verbalize/demonstrate understanding of assistive devices/ modifications for ADL. 3=Patient will improve strength/tolerance for activity to enable patient to perform ADL's. Speech Evaporator Operator Goals Evaporator Operator Goals 1. The patient will improve cognitive linguistic skills for increased function and safety with ADL's in the least restrictive setting. 2. The patient will tolerate the least restrictive diet without signs/symptoms of aspiration or laryngeal penetration. Time Frame: Four Weeks JACOB PIERRE OT Dec 12, 2016 08:30
[2016-12-12] MEDS: diphenhydrAMINE 25 MG TAB (BENADRYL) PO PRN (09:15)
[2016-12-12] MEDS: HYDROcodone/APAP 5 MG/325 MG (LORTAB) TAB PO PRN (09:58)
[2016-12-12 10:12] VITALS: BP 127/73
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
== END 2016-12-12 10:12 | DRG 949 ==
PROVIDERS: ADMIT Family Medicine; ATTEND Physical Medicine & Rehabilitation
DX: S06.9X9D Unspecified intracranial injury with loss of consciousness of unspecified duration, subsequent encounter (principal); M62.421 Contracture of muscle, right upper arm; M62.422 Contracture of muscle, left upper arm; M62.471 Contracture of muscle, right ankle and foot; M62.472 Contracture of muscle, left ankle and foot; M24.561 Contracture, right knee; M24.562 Contracture, left knee; M86.9 Osteomyelitis, unspecified; R42 Dizziness and giddiness; I95.9 Hypotension, unspecified; G40.909 Epilepsy, unspecified, not intractable, without status epilepticus; I10 Essential (primary) hypertension; E87.6 Hypokalemia; K59.00 Constipation, unspecified; Z23 Encounter for immunization
CPT/HCPCS: 36415; 80048; 80053; 82962; 85025; 85027; 85652; 93005; 93306; 94640; 94760